=== PATIENT | male | born 1975 | race Caucasian/White ===

== ENCOUNTER 2024-06-11 03:26 | Inpatient (IN) | payer MEDICARE, OTHER, SELFPAY ==
[2024-06-11] VITALS (7 sets, daily range): BP systolic 107–138; BP diastolic 62–81; BMI 23.7; BMI 22.9
--- NOTE | 2024-06-11 00:23 | ED.GENMED ---
History of Present Illness
<CARLTON Franks - Last Filed: 06/11/24 02:14>
General
Chief Complaint: Change in Mental Status
Source: patient
Time Seen by Provider: 06/11/24 00:23
Nursing documentation reviewed up to this point in time: agreed with
History of Present Illness
History of Present Illness:
Patient is a 48-year-old male with history of seizures, substance abuse presents to the ED for evaluation. Pt awake alert confused speech. Able to state his name , not making conversational sense. He is not able to tell me why he is here.
Pt arrived via EMS who was called for seizure. Pt not able to give history.
Past History
<CARLTON Franks - Last Filed: 06/11/24 02:14>
Past History
ED Past Medical History: Seizures and Other (Seizure disorder with frequent breakthrough seizures, polysubstance drug use)
ED Past Surgical History: Other (Brain stimulator for seizure disorder)
Social History
Tobacco: Smoker
Drug: Marijuana and Narcotics
Personal: Single
Living: with family
Employment: Not employed
Family History
Family History: Other (Noncontributory)
Review of Systems
<CARLTON Franks - Last Filed: 06/11/24 02:14>
Review of Systems
Allergies reviewed?: Yes
Unable to obtain full review of systems at this time due to: other ( pt confused not able to give history )
Phy Exam
<CARLTON Franks - Last Filed: 06/11/24 02:14>
General Physical Exam
General Presentation: no apparent distress
General age: appears stated age
General Skin: warm and dry
General Habitus: normal
General Mental: confused
Cardiovascular Exam
Cardiovascular Exam: regular rate/rhythm and normal peripheral pulses
Pulmonary Exam
Pulmonary Exam: lungs clear and no respiratory distress
Neurological Exam
Neurological Exam: alert
Musculoskeletal Exam
Musculoskeletal Exam: full ROM
Skin Exam
Skin Exam: normal color and warm/dry
Psychiatric Exam
Psychiatric Exam: normal mood/affect
Course
<CARLTON Franks - Last Filed: 06/11/24 02:14>
Orders/Labs/Results
Orders:
Orders
06/11/24 00:34
Electrocardiogram (*1) Stat
Reason for Study: Other
Other Reason for Exam: neuro symptoms
CT Head W/o Iv Contrast Urgent
Comment:
Reason For Exam: change in ms
Cardiac Monitoring- Treatment ONCE
EKG- Treatment ONCE
06/11/24 00:49
0.9% Sodium Chloride 1000 ml [Nss] 1,000 ml IV BOLUS
06/11/24 01:05
Lorazepam [Ativan] 2 mg IV NOW STA
06/11/24 01:12
Alcohol Urgent
CPK [Creatine Phosphokinase] Urgent
Complete Blood Count/With Diff Urgent
Comprehensive Metabolic Panel Urgent
06/11/24 01:42
FOLic ACID [Folvite] 1 mg 0.9% Sodium Chloride 50 ml [Nss] 50 ml IV ONCE
Thiamine Injection 500 mg 0.9% Sodium Chloride 250 ml [Nss] 250 ml IV ONCE
06/11/24 01:49
Drug Screen, Urine [Urine Drug Abuse Screen] Urgent
Date Specimen was Collected: 06/11/24
Time Specimen was Collected: 01:48
Abnormal Lab Results
06/11/24
01:12
WBC 11.0 H 10^3/uL
(4.8-10.8)
Absolute Neuts (auto) 8.9 H 10^3/uL
(1.4-6.5)
Neutrophils % 81.0 H %
(42.2-75.2)
Lymphocytes % 14.5 L %
(20.5-51.1)
BUN 26 H mg/dl
(9-20)
Glucose 134 H mg/dl
(70-99)
06/11/24 01:12
06/11/24 01:12
Vital Signs
Initial and Last Documented VS:
Initial Vital Signs
Temp Pulse Resp Pulse Ox
97.6 F 98 22 97
06/10/24 23:56 06/10/24 23:56 06/10/24 23:56 06/10/24 23:56
Last Documented Vital Signs
Temp Pulse Resp BP Pulse Ox
97.6 F 80 11 122/81 97
06/10/24 23:56 06/11/24 01:15 06/11/24 01:15 06/11/24 01:14 06/11/24 01:15
Netezza Architect consulted with Physician
Netezza Architect consulted with physician?: Yes
Name of Physician Consulted: Maye
<Irving Villavicencio MD - Last Filed: 06/11/24 00:49>
Orders/Labs/Results
Orders:
Orders
06/11/24 00:34
Electrocardiogram (*1) Stat
Reason for Study: Other
Other Reason for Exam: neuro symptoms
CT Head W/o Iv Contrast Urgent
Comment:
Reason For Exam: change in ms
Cardiac Monitoring- Treatment ONCE
EKG- Treatment ONCE
06/11/24 00:49
0.9% Sodium Chloride 1000 ml [Nss] 1,000 ml IV BOLUS
06/11/24 01:05
Lorazepam [Ativan] 2 mg IV NOW STA
06/11/24 01:12
Alcohol Urgent
CPK [Creatine Phosphokinase] Urgent
Complete Blood Count/With Diff Urgent
Comprehensive Metabolic Panel Urgent
06/11/24 01:42
FOLic ACID [Folvite] 1 mg 0.9% Sodium Chloride 50 ml [Nss] 50 ml IV ONCE
Thiamine Injection 500 mg 0.9% Sodium Chloride 250 ml [Nss] 250 ml IV ONCE
06/11/24 01:49
Drug Screen, Urine [Urine Drug Abuse Screen] Urgent
Date Specimen was Collected: 06/11/24
Time Specimen was Collected: 01:48
Abnormal Lab Results
06/11/24
01:12
WBC 11.0 H 10^3/uL
(4.8-10.8)
Absolute Neuts (auto) 8.9 H 10^3/uL
(1.4-6.5)
Neutrophils % 81.0 H %
(42.2-75.2)
Lymphocytes % 14.5 L %
(20.5-51.1)
BUN 26 H mg/dl
(9-20)
Glucose 134 H mg/dl
(70-99)
06/11/24 01:12
06/11/24 01:12
Vital Signs
Initial and Last Documented VS:
Initial Vital Signs
Temp Pulse Resp Pulse Ox
97.6 F 98 22 97
06/10/24 23:56 06/10/24 23:56 06/10/24 23:56 06/10/24 23:56
Last Documented Vital Signs
Temp Pulse Resp BP Pulse Ox
97.6 F 80 11 122/81 97
06/10/24 23:56 06/11/24 01:15 06/11/24 01:15 06/11/24 01:14 06/11/24 01:15
Clintlt;CARLTON Franks - Last Filed: 06/11/24 02:14>
MDM/Problems Addressed
MDM/Problems Addressed:
Patient presented to the ER for evaluation patient arrives confused not able to give history very odd bizarre behavior. He attempts to answer some questions but is not able to tell us why he is here
Patient has been seen here previously with substance abuse history and seizure disorder. Patient is afebrile with stable vital signs nontachycardic no meningismus on exam white count minimally elevated 11.0 normal.
BUN minimally elevated 26 no other acute abnormal electrolytes; alcohol not detected.
CT neg.
Pt was evaluated by ED attending as pt acting very bizarre grinding teeth, antonino his extremities. no seizure activity. pt became very restless and was given ATivan . Pt was ordered folic acid/thiamine. will require admission for change in
MS. Wernicke encephalopathy is considered
I did attempt to call his father left a message but no answer.
Chronic conditions affecting care:
Substance abuse seizure disorder
<CARLTON Franks - Last Filed: 06/11/24 02:14>
*Critical Care Note
Total Time (30-74mins, 75-104mins- exclusive of procedures): Not Applicable
ED Attending Note
<CARLTON Franks - Last Filed: 06/11/24 02:14>
-
Portions of this chart may have been created with voice recognition software.� Occasional wrong word or��sound alike� substitutions may have occurred due to the inherent limitations of voice recognition software.
<Irving Villavicencio MD - Last Filed: 06/11/24 00:49>
ED Attending Note
Patient seen and examined by attending physician: Yes
ED Attending Note:
I have seen and evaluated the patient with a [id number]-shoe encounter. I have spoken to the advance practicer provider and involved in the medical history, the physical exam, medical decision making.
Evaluation and management service: agree unless noted differently below.
Results interpretation: agree unless noted differently below.
Focused HPI: 48-year-old male with a past medical history of seizures, polysubstance use presents to the ER for evaluation of odd behavior; there is a question of seizure as well. Patient is obviously confused; who presented via EMS and they said
that they received a call for 'seizure' and arrived and found patient confused. He is awake and alert and answering questions but rambling and providing bizarre responses. Initially he says that he is here for headache but then he says his head
does not hurt. He says that he has not had a seizure for a few weeks. He admits to marijuana use but he says he does not use any drugs and he denies ever using alcohol despite record showing regular alcohol use in the past.
Physical exam: Awake and alert. He is oriented to person and place and time but behaving somewhat oddly and answering questions bizarrely. Vitals within acceptable range. Pupils are equal round and reactive to light bilaterally, extraocular
movements intact, cranial nerves are intact. Speech is fluid there is no dysarthria or aphasia. Motor and sensory intact upper and lower extremities proximally distally. He has no signs of trauma to the head.
Medical Decision Makin-year-old male presents to the emergency room via EMS after possible seizure. He is confused/bizarre here. Vitals and exam as above. Possible seizure with postictal confusion versus drug/alcohol intoxication versus head
bleed/acute intracranial emergency. Will send labs including a CBC and CMP, alcohol level, UDS. Check CT head. Monitor very closely and reassess after the above.
Discharge Plan
Departure
Patient Disposition: Admit
Date of Disposition: 06/11/24
Time of Disposition: 02:11
Admit to: Med/Surg
Admit to doctor: Nayan
Presentation/result/management discussed w/ accepting MD/DO: Hospitalist
Patient with high blood pressure during this ER visit?: No
Condition: Fair
Covid-19: Not Applicable
Discharge Problem:
altered mental status
Prescriptions:
No Action
Briviact 50 MG tablet
50 mg PO BID@0800,1200
Patient Comments:
05/29/2022: last filled 05/18/22, 60 tabs for 30 days from [facility]
Briviact 100 mg tablet
100 mg PO BID@0800,2000
Patient Comments:
05/29/2022: last filled 05/18/22, 60 tabs for 30 days from [id number]
clonazepam 1 mg Tablet
1 mg PO BID
thiamine HCl (vitamin B1) [Vitamin B-1] 100 mg Tablet
100 mg PO DAILY
olanzapine 2.5 mg Tablet
1.25 mg PO BID
Patient Comments:
04/14/2023: Refused 0800 dose
gabapentin 800 mg Tablet
800 mg PO TID
folic acid 1 mg Tablet
1 mg PO DAILY
Interventions
Interventions:
*Risk Screen - Suicide Last Done: 06/11/24 00:54
*General Assessment Last Done: 06/11/24 00:54
*Neglect/Abuse Screening Last Done: 06/11/24 00:54
*ED COVID-19 Vaccine History Last Done: 06/11/24 00:54
ED- Cardiac Assessment Last Done: 06/11/24 01:21
ED- Neurological Assessment Last Done: 06/11/24 01:21
ED- Pulmonary Assessment Last Done: 06/11/24 01:21
Discharge Date and Time
Print Language: MONGOLIAN
[2024-06-11] MEDS: NSS 1000 IV (01:09)
[2024-06-11] MEDS: ATIVAN 2 MG IV (01:10)
[2024-06-11 01:23] LABS: % Basophils 0.4 % (0-2); % Eosinophils 0.1 % (0-6); % Immature Granulocytes 0.4 % (0-0.5); % Lymphocytes 14.5 % (20.5-51.1); % Monocytes 3.6 % (1.7-9.3); Absolute Lymphocytes 1.6 10^3/uL (1.2-3.4); Absolute Monocytes 0.4 10^3/uL (0.1-0.6); Absolute Neutrophils 8.9 10^3/uL (1.4-6.5); Hematocrit 47.8 % (39.0-52.0); Hemoglobin 16.5 g/dL (13.0-18.0); Mean Corp Hgb Conc. 34.5 g/dL (33.0-37.0); Mean Corpuscular Volume 89.7 fL (80.0-94.0); Mean Platelet Volume 8.9 fL (7.4-10.4); Nucleated Red Blood Cells % 0 % (-); Platelet Count 220 10^3/uL (130-400); Red Blood Cell Count 5.33 10^6/uL (4.70-6.10)
--- NOTE | 2024-06-11 01:27 | EDRN ---
Pt fully clothed when this RN entered room. Asked pt to change into gown and he was unable to so on his own. Pt unable to answer questions appropriately. This RN got pt into gown from waist up. While doing so, pt pulled gown down to flex his
chest muscles. He did this multiple times. While EDT attempting to get EKG, pt started holding his breath, antonino his muscles and got red in the face. Pt was also grinding his teeth. Dr Villavicencio and Zac[facility] PRE SALES ARCHITECT to bedside. This lasted
approximately 15 seconds. Pt then grabbed his penis. Pt would not follow commands. Asked numerous times if he has to go to the bathroom and once he finally said yes, attempted to provide urinal but pt would not let go of his penis. Eventually,
hand was removed and pt urinated in his pants before they could be unbuttoned. Pt moving around on stretcher, trying to sit up. Pants removed. Pt medicated with 2mg IV ativan which calmed pt. Pt oriented to self only - unable to provide HPI.
When asked if he uses illicit drugs pt said 'I wish I could.' Pt said he drinks alcohol but unable to quantify or say what he drinks.
[2024-06-11 01:38] LABS: ALT (SGPT) 20 U/L (0-50); AST (SGOT) 21 U/L (17-59); Albumin 4.8 g/dl (3.5-5.0); Alkaline Phosphatase 93 U/L (38-126); Blood Urea Nitrogen 26 mg/dl (9-20); Calcium 9.4 mg/dl (8.4-10.2); Carbon Dioxide 24 mmol/L (22-30); Chloride 103 mmol/L (98-107); Creatine Phosphokinase 89 U/L (55-170); Estimated Creatinine Clearance 122 ml/min; Glucose 134 mg/dl (70-99); Potassium 4.3 mmol/L (3.5-5.1); Sodium 139 mmol/L (135-145); Total Bilirubin 0.8 mg/dl (0.2-1.3); Total Protein 7.5 g/dl (6.3-8.2); eGFR > 60.00
[2024-06-11 01:40] LABS: Alcohol None Detected
--- NOTE | 2024-06-11 02:05 | EDRN ---
Called pharmacy for folvite and thiamine
[2024-06-11 02:12] LABS: Amphetamines Negative (Negative); Barbiturates Negative (Negative); Benzodiazepines Negative (Negative); Buprenorphine Negative (Negative); Cocaine Negative (Negative); Marijuana Positive (Negative); Methadone Negative (Negative); Methamphetamines Negative (Negative); Opiates Negative (Negative); Phencyclidine Negative (Negative); Tricyclic Antidepressants Negative (Negative)
[2024-06-11] MEDS: FOLVITE 50.2 MG IV (02:29)
[2024-06-11] MEDS: THIAMINE INJECTION 255 MG IV (02:54)
--- NOTE | 2024-06-11 03:04 | EDRN ---
This RN noted pt had his legs in the air and was shaking them. Tried to get pt to lower his legs and he held his breath and turned red. Pt grinding his teeth intermittently which he does when he is not having these episodes. Pt had his cell
phone in his hand and dropped it on the floor. Pt crossed his legs and then had them raised off the stretcher. Once pt put his legs down, he tried multiple times to get off the end of the stretcher despite being told to not do so. This RN
attempted to provide pt with urinal multiple times and to get him to sit further back on stretcher. Pt unable to comply and had to be assisted further back on stretcher. Pt lying on stretcher squeezing his penis so hard his knuckles turned white.
This RN called for assistance. Multiple RNs assisted pt back onto stretcher and attempted to help him use the urinal but he would not release his penis to allow placement of urinal. Pt started spraying urine. When urinal finally able to be
placed, captured less than 5 ml. Linens wet - removed and new ones placed. Pt placed in diaper. Pt repeatedly trying to hold his penis.
--- NOTE | 2024-06-11 03:20 | HPS.HSE ---
Family Physician
-
Family Physician: NOT KNOW UNKNOWN - PT DOES
Chief Complaint
-
Altered Mental Status
History of Present Illness
Patient is a 48y M with PMH significant for seizure disorder and substance abuse who presents to ED via EMS. 911 was responding to a call for 'seizure' and found the patient to be awake but extremely confused / disoriented. He was brought o the
ED for further evaluation. No additional sources of history are available. In the ED, patient is awake and interactive. He follows commands during exam (deep breath, etc). He is unable to answer questions appropriately however. Patient is
essentially speaking nonsense. No slurred speech. Moving all extremities.
Appears disoriented, confused. No witnessed seizure activity during his time in the ED.
Medical History
Past Medical History
Past Medical History: Reports Other
Additional Past Medical History:
Seizure Disorder
Polysubstance Abuse
Past Surgical History: Reports Other
Additional Past Surgical History:
Unknown
Social History
Unable to obtain full social history at this time due to: Other (Confusion)
Family History
Family History: Unable to Obtain
Allergies / Home Medications
Allergies reflects when Allergies were last updated in [facility].
Home Medications with original date entered in [facility]
Allergy/Medication List:
Unable to obtain.
If medication reconciliation has not been performed, why?: Medication List N/A
Review of Systems
-
Unable to obtain full review of systems at this time due to: Other (Confusion)
A 12 point ROS was completed and negative except as noted: No
Physical Exam
Vital Signs
Vital Signs
Temp Pulse Resp BP Pulse Ox
97.6 F 74 18 116/78 96
06/10/24 23:56 06/11/24 02:01 06/11/24 02:01 06/11/24 02:01 06/11/24 02:01
Physical Exam
General: Other (48y M somewhat restless / agitated. Flushed appearance. Eyes track / focus and follows most commands. Unable to answer questions.)
HEENT: Other (Dry MM. Neck supple.)
Respiratory: Clear; No Wheezes, Rales or Rhonchi
Cardiac: S1/S2 and Regular Rhythm; No Murmur
GI: Soft, Non Tender, Non Distended and Normal Bowel Sounds
Musculoskeletal: No Clubbing, No Cyanosis and No Edema
Neuro: Awake and Other (No apparent weakness / asymmetry.); No Oriented
Psych: Agitated and Anxious
Laboratory Results
-
06/11/24 01:12
06/11/24 01:12
Laboratory Results
Total Bilirubin 0.8 mg/dl (0.2-1.3) 06/11/24 01:12
AST 21 U/L (17-59) 06/11/24 01:12
ALT 20 U/L (0-50) 06/11/24 01:12
Alkaline Phosphatase 93 U/L (38-126) 06/11/24 01:12
Impression/Plan
-
A/P: Patient is a 48y M with PMH significant for seizure disorder and polysubstance abuse who presents to ED via EMS for report of seizure and evident mental status change.
Altered Mental Status / Acute Delirium
- Admit for further evaluation and treatment.
- UDS is unremarkable (positive only for THC and he has a 'marijuana card' for his epilepsy).
- Alcohol is negative. Reported history of alcohol abuse - but patient has always denied and all prior EtOH levels here have been negative.
- Other labs are unremarkable without evident source for TME.
- CT head with chronic L sided encephalomalacia (? prior TBI) but no acute findings.
- Differential at this point includes post-ictal state / seizure versus psychosis / etc.
- Unable to confirm / verify current meds and most recent list here is quite old.
- Will given Keppra now in the ED and then continue BID.
- Ativan IV PRN any breakthrough seizures, etc.
- Neurology evaluation, EEG, MRI in the AM.
- Zyprexa PRN for agitation.
- Psychiatry evaluation for further recommendations.
- Formal med rec in the AM.
- Follow for any new / worsening / focal symptoms.
DVT Prophylaxis: SCDs
Code Status: Full
[2024-06-11] MEDS: KEPPRA 1000 MG IV ×2 (03:58→09:04)
[2024-06-11 05:57] LABS: Hematocrit 44.6 % (39.0-52.0); Hemoglobin 15.6 g/dL (13.0-18.0); Mean Corpuscular Hgb 31.3 pg (27.0-31.0); Mean Corpuscular Volume 89.4 fL (80.0-94.0); Mean Platelet Volume 9.1 fL (7.4-10.4); Platelet Count 194 10^3/uL (130-400); Red Blood Cell Count 4.99 10^6/uL (4.70-6.10); White Blood Cell Count 10.6 10^3/uL (4.8-10.8)
[2024-06-11 06:22] LABS: Blood Urea Nitrogen 22 mg/dl (9-20); Calcium 8.7 mg/dl (8.4-10.2); Carbon Dioxide 22 mmol/L (22-30); Chloride 104 mmol/L (98-107); Estimated Creatinine Clearance > 125 ml/min; Glucose 133 mg/dl (70-99); Potassium 3.9 mmol/L (3.5-5.1); Sodium 138 mmol/L (135-145); eGFR > 60.00
[2024-06-11 06:54] LABS: TSH Reflex To Free T4 0.69 uIU/ml (0.47-4.68)
--- NOTE | 2024-06-11 08:44 | CON.NEURO ---
Consultation
Order
Date of Consultation: 06/11/24
Requesting Provider: Joe Spicer DO
Reason for Consult: encephalopathy
Neurology Consultation Note.
HPI:This is a 48-year-old RH man who presented to [facility] on 06/10/2024 with encephalopathy. According to EMS report the patient had 3 seizures, witnessed by his mother prior to presentation.
MR. James states that he is under care of Huan Copeland MD and takes Topamax, Neurontin and clonazepam for seizure management. History is limited due to expressive and receptive aphasia.
ER VS: 122/81, 80, afebrile.
EKG: NSR, QTc Int : 401 ms
PDMP:Clonazepam 1 Mg�60 tablets filled in on 04/22/2024, 05/19/2024.
Labs: Glucose�134, normal sodium, calcium, CK, WBC�11.
CT head wo contrast-chronic hypodensity in the left occipital lobe, left hemiatrophy
Routine EEG(06/11/2024) frequent right frontal sharps and generalized right greater than left slowing.
PMH: epilepsy, polysubstance addiction.
PSH: VNS
SH: lives in recovery house; former smoker, h/o incarceration, used to work in construction, uses THC, has 18-year-old daughter
FH: Unknown
All: Depakote�hearing loss
ROS: Negative for headache, weakness
General: Well developed. In no acute distress.
Cardio: Regular rate and rhythm without murmur. Extremities are without cyanosis or edema.
Neuro:
Mental Status: Alert, oriented to name, age, not to time. Poor attention. Expressive= receptive aphasia. Follows simple requests intermittently. Nonfluent. No hemineglect.
Cranial Nerves: Pupils are equally round and reactive to light. Horizontal EOMs full. Blinks to threat bilaterally. No ptosis. No nystagmus. V1-V3 intact to light touch and pinprick bilaterally, symmetric. Face symmetric. Normal hearing AU.
The palate elevated well. SCMs and traps 5/5. Tongue midline. No dysarthria.
Motor: All limbs antigravity symmetrically purposefully
Reflexes: Limited exam due to cooperation
Sensory: Limited exam due to poor attention
Coordination: No tremors, clonic movements
Gait: deferred
Assessment and Plan:
I. Multifactorial encephalopathy
II. Left cerebral hemiatrophy
III. 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
-Telemetry monitoring
-Seizure precautions
-Continue IV thiamine
-please check magnesium, TFTs, urinalysis, urine tox
-CXR to confirm anesthetic
-Keppra load
-Please obtain medical records from Huan Copeland MD
I personally reviewed all radiology and labs along with past medical records pertinent to current medical problems. Total time spent in patient care is 60 minutes.
Thank you for allowing us to participate in the care of this patient. We will continue to follow. Please do not hesitate to contact us with any questions or concerns.
Subjective/Objective
Subjective Data
Date of Service: June 11, 2024
Objective Data
Vital Signs
Temp Pulse Resp BP Pulse Ox
36.4 C 77 26 117/70 96
06/10/24 23:56 06/11/24 05:00 06/11/24 05:00 06/11/24 05:00 06/11/24 02:01
Lab Results
06/11/24 05:43
06/11/24 05:43
Sodium 138 mmol/L (135-145) 06/11/24 05:43
Potassium 3.9 mmol/L (3.5-5.1) 06/11/24 05:43
BUN 22 mg/dl (9-20) H 06/11/24 05:43
Glucose 133 mg/dl (70-99) H 06/11/24 05:43
Calcium 8.7 mg/dl (8.4-10.2) 06/11/24 05:43
Ur Buprenorphine Negative (Negative) 06/11/24 01:49
Patient Allergies
divalproex sodium [From Depakote] Adverse Reaction (Verified 06/10/24 23:59)
pt states he loses his hair
Medications
-
Active Medications
Generic Name Dose Route Start Last Admin
Trade Name Freq PRN Reason Stop Dose Admin
Acetaminophen 650 mg 06/11/24 04:29
Acetaminophen 325 Mg Tablet PO 07/09/24 04:28
Q4HPRN PRN
Mild Pain / Temp > 101
Folic Acid 1 mg 06/11/24 08:00
Folic Acid 1 Mg Tablet PO 07/09/24 07:59
DAILY MIKE
Levetiracetam 1,000 mg 06/11/24 08:00
Levetiracetam (100 Mg/Ml) 500 Mg/5 Ml Vial IV 07/09/24 07:59
Q12 MIKE
Lorazepam 1 mg 06/11/24 04:29
Lorazepam 2 Mg/Ml Vial IV 07/09/24 04:28
Q2HPRN PRN
Seizure activity / Agitation
Olanzapine 1.25 mg 06/11/24 04:29
Olanzapine 2.5 Mg Tablet PO 07/09/24 04:28
Q6HPRN PRN
Agitation / Anxiety
Sodium Chloride 0 flush 06/11/24 07:00
Sodium Chloride 0.9% (Flush) Syringe IV 07/09/24 06:59
PER PROTOCOL MIKE
Sodium Chloride 0.5 ml 06/11/24 06:22
Nss (Pf) 10 Ml Vial For Ativan 1 Mg Dose IV 07/09/24 06:21
Q2HPRN PRN
IV LORAZEPAM DILUTION
Home Medications
�Medication �Instructions �Recorded
brivaracetam 100 mg tablet 100 mg PO BID@0800,2000 05/29/22
(Briviact)
clonazepam 1 mg tablet 1 mg PO BID 04/14/23
folic acid 1 mg tablet 1 mg PO DAILY 04/14/23
gabapentin 400 mg capsule 400 mg PO BID 06/11/24
topiramate 50 mg tablet 50 mg PO BID 06/11/24
Vital Signs and Labs
-
Vital Signs and Labs:
Vital Signs
Temp Pulse Resp BP Pulse Ox
36.4 C 77 26 117/70 96
06/10/24 23:56 06/11/24 05:00 06/11/24 05:00 06/11/24 05:00 06/11/24 02:01
Lab Results
06/11/24 05:43
06/11/24 05:43
Sodium 138 mmol/L (135-145) 06/11/24 05:43
Potassium 3.9 mmol/L (3.5-5.1) 06/11/24 05:43
BUN 22 mg/dl (9-20) H 06/11/24 05:43
Glucose 133 mg/dl (70-99) H 06/11/24 05:43
Calcium 8.7 mg/dl (8.4-10.2) 06/11/24 05:43
Ur Buprenorphine Negative (Negative) 06/11/24 01:49
Medications
-
Medications:
Generic Name Dose Route Start Last Admin
Trade Name Freq PRN Reason Stop Dose Admin
Acetaminophen 650 mg 06/11/24 04:29
Acetaminophen 325 Mg Tablet PO 07/09/24 04:28
Q4HPRN PRN
Mild Pain / Temp > 101
Folic Acid 1 mg 06/11/24 08:00
Folic Acid 1 Mg Tablet PO 07/09/24 07:59
DAILY MIKE
Levetiracetam 1,000 mg 06/11/24 08:00
Levetiracetam (100 Mg/Ml) 500 Mg/5 Ml Vial IV 07/09/24 07:59
Q12 MIKE
Lorazepam 1 mg 06/11/24 04:29
Lorazepam 2 Mg/Ml Vial IV 07/09/24 04:28
Q2HPRN PRN
Seizure activity / Agitation
Olanzapine 1.25 mg 06/11/24 04:29
Olanzapine 2.5 Mg Tablet PO 07/09/24 04:28
Q6HPRN PRN
Agitation / Anxiety
Sodium Chloride 0 flush 06/11/24 07:00
Sodium Chloride 0.9% (Flush) Syringe IV 07/09/24 06:59
PER PROTOCOL MIKE
Sodium Chloride 0.5 ml 06/11/24 06:22
Nss (Pf) 10 Ml Vial For Ativan 1 Mg Dose IV 07/09/24 06:21
Q2HPRN PRN
IV LORAZEPAM DILUTION
Home Medications
-
Home Medications
brivaracetam 100 mg tablet (Briviact) 100 mg PO BID@0800,2000 05/29/22
clonazepam 1 mg tablet 1 mg PO BID 04/14/23
folic acid 1 mg tablet 1 mg PO DAILY 04/14/23
gabapentin 400 mg capsule 400 mg PO BID 06/11/24
topiramate 50 mg tablet 50 mg PO BID 06/11/24
[2024-06-11] MEDS: FOLVITE 1 MG PO (09:04)
--- NOTE | 2024-06-11 10:11 | EEGC.RPT ---
Continuous EEG Report
Report
TECHNICAL REMARKS:��This is a technically satisfactory eighteen channel record employing 21 disc electrodes applied according to a measured international 10-20 electrode placement system.��There were no significant technical difficulties.��The study
was done on a [employer] System.
MEDICATIONS:�Brivaracetam, clonazepam, gabapentin, topiramate
CLINICAL INFORMATION:��This is a 48 year old man with seizure cluster and encephalopathy. This study was requested to look for epileptiform abnormalities.
STUDY DURATION: 26 minutes.
REPORT: �At the onset of the EEG, the patient is awake. The background activity on the left consists of 5�6 hz, impersistent, posteriorly dominant, moderate in amplitude, asymmetric, and rhythmic activity. Continuous right hemispheric 2-4 Hz
slowing with frequent right frontal sharp waves is seen. Excessive beta activity was present as well as multiple movement and muscle artifacts. Drowsiness is characterized by low amplitude mixed frequency activity, decreased eye blinking, and
muscle artifact.
IMPRESSION: �This is an abnormal awake and drowsy EEG due to continuos right greater than left generalized slowing and frequent right frontal sharp waves indicative of propensity to develop seizures from this area. No electrographic seizures were
seen.
[2024-06-11 10:45] LABS: Magnesium 1.7 mg/dl (1.6-2.3)
[2024-06-11] MEDS: TOPAMAX 50 MG PO ×2 (12:02→22:49)
[2024-06-11] MEDS: BRIVIACT 100 MG PO ×2 (12:03→21:41)
--- NOTE | 2024-06-11 12:20 | CS.PSYCHR ---
Consult Summary - Psychiatry
-
Pt is a 48 yo male with history of seizure disorder and substance abuse who presented to ED via EMS, who responded to a reported 'seizure' and found the patient to be awake but confused/disoriented. No collateral history available. Pt noted to
be awake and interactive, following basic commands, but very tangential/disorganized. On exam, pt seen resting on stretcher in no distress. Pt awake, alert, making eye contact. Pt gives rambling, disjointed answers, completely off topic. Pt able
to state he is on seizure medication, denies using any illicit substance. He denies any psychiatric symptoms, shows not signs of mood disturbance or psychosis. UDS positive only for THC, negative for Rx benzo.
Psych Hx: denied
PDMP: Klonopin prescriptions from a series of different providers- Bari Sullivan in August and September 2023, [facility] in [place] October and November, PCP Dr Bautista November - Jan, then PCP [facility] Feb- Apr, last filled 05/19/24 1 mg BID #60
SH: pt mentions having a dtr and significant other, unable to obtain clear history
MSE: alert, oriented to name and place, calm, fairly cooperative. Poor historian, speech/thought rambling and loose/tangential. No apparent delusions or hallucinations. No agitation. No signs of mood disturbance. Pt denies any symptoms.
Insight limited
Imp: Altered mental status, R/o delirium, R/o substance intoxication (only THC showing on UDS)
Unspecified substance use d/o by history; R/o Rx benzo abuse
Rec: Neurology consult. Monitor for potential benzo withdrawal. Pt should be tapered off- likely not taking Klonopin as prescribed with negative UDS. Need further history
Will follow
--- NOTE | 2024-06-11 13:20 | CM ---
Chart reviewed. Patient is here for AMS/seizuresx3. Patient states he lives in a ML home with his mom. He and his mom live on the 1st floor. The next floor is rented out. He does not drive. He is independent. He works PT in [employer]. He denies any
+SDOHs. He has active PCP and pharmacy. No DME.
ANTICIPATED DISCHARGE DISPOSITION: Home with mom, once medically cleared.
--- NOTE | 2024-06-11 13:49 | W.PN.UPDATE ---
Update Note
Progress Note Update
Seen and examined independent of overnight physician. Nonbillable note
Patient states he knows he is at outside hospital. States he was told he had multiple seizures at home. Upon further questioning of events leading to hospitalization patient with tangential thought process. Patient thought process jumps around
from 1 topic to another topic and he never comes back to original question. Patient is calm throughout conversation. Patient thinks he is answering the question however patient completely forgets what the original question was and keeps talking
about random stuff. Otherwise patient resting in bed comfortably. Moving all 4 extremities.
General: Talkative, moving all 4 extremities.
HEENT: Other (Dry MM. Neck supple.)
Respiratory: Clear; No Wheezes, Rales or Rhonchi
Cardiac: S1/S2 and Regular Rhythm; No Murmur
GI: Soft, Non Tender, Non Distended and Normal Bowel Sounds
Musculoskeletal: No Clubbing, No Cyanosis and No Edema
Neuro: Awake and Other (No apparent weakness / asymmetry.); No Oriented
Psych: calm but tangential thought process.
A/P: Patient is a 48y M with PMH significant for seizure disorder and polysubstance abuse who presents to ED via EMS for report of seizure and evident mental status change.
Toxic metabolic encephalopathy likely secondary to postictal due to seizures versus psych etiology
Epilepsy
- UDS is unremarkable (positive only for THC and he has a 'marijuana card' for his epilepsy). Patient with prescription for Klonopin/PDMP checked. However UDS was negative.
- Alcohol is negative. Reported history of alcohol abuse - but patient has always denied and all prior EtOH levels here have been negative.
- Other labs are unremarkable without evident source for TME.
- CT head with chronic L sided encephalomalacia (? prior TBI) but no acute findings.
- Differential at this point includes post-ictal state / seizure versus psychosis / etc.
- Ativan IV PRN any breakthrough seizures, etc.
- Neurology evaluation, EEG, MRI brain pending.
- Zyprexa PRN for agitation.
- Psychiatry evaluation for further recommendations.
- Continue with home antiepileptic regimen of Briviact, Klonopin, gabapentin and Topamax. Also started on fosphenytoin
- Follow for any new / worsening / focal symptoms.
- Outpatient neurology records requested
DVT Prophylaxis: SCDs
Code Status: Full
[2024-06-11] MEDS: CEREBYX 130 MG IV (14:19)
[2024-06-11 15:45] LABS: Amphetamines Negative (Negative); Barbiturates Negative (Negative); Benzodiazepines Positive (Negative); Buprenorphine Negative (Negative); Cocaine Negative (Negative); Marijuana Positive (Negative); Methadone Negative (Negative); Methamphetamines Negative (Negative); Opiates Negative (Negative); Phencyclidine Negative (Negative); Tricyclic Antidepressants Negative (Negative)
[2024-06-11 16:04] LABS: Fentanyl, Urine Negative (Negative)
[2024-06-11 16:05] LABS: Urine Albumin Negative (Neg - Trace); Urine Bilirubin Negative (Negative); Urine Character Slightly Cloudy (Clear); Urine Color Yellow; Urine Glucose Negative (Negative); Urine Ketone 2+ (Negative); Urine Leukocyte 1+ (Negative); Urine Nitrite Positive (Negative); Urine Occult Blood 1+ (Negative); Urine Specific Gravity 1.015 (<1.030); Urine Urobilinogen 2+ (Neg - 1+)
[2024-06-11 16:55] LABS: Urine Squamous Cell >30 /LPF (Few)
[2024-06-11 17:00] LABS: Urine Bacteria Few (Negative)
[2024-06-11] MEDS: ZYPREXA 1.25 MG PO (17:39)
[2024-06-11 20:08] LABS: Hepatitis C Antibody Negative (Negative)
--- NOTE | 2024-06-11 21:00 | TRANSFER ---
Patient arrived to unit accompanied by ED PCT x2, patient ambulated to bed without difficulty. Nursing assessment completed and as documented at this time. Medsitter initiated at this time d/t confusion, impulsiveness, high fall risk, and ensure
medical equipment stays on. Oriented to room, facility, use of call kimbrough and within reach. VSS. Care ongoing.
[2024-06-11] MEDS: KLONOPIN 1 MG PO (21:41)
[2024-06-11] MEDS: NEURONTIN 400 MG PO (21:41)
[2024-06-11] MEDS: LOVENOX SC (21:58)
--- NOTE | 2024-06-11 22:00 | PTCARENOTE ---
Upon medication administration, patient took pills PO, intermittently grinding teeth, and threw both hands in the hair with eyes closed while shaking head back and fourth. Patient was able to spit out pills on command, episode lasted about 20
seconds without any obvious signs of post ictal state. Patient immediately returned to previous mentation. Medications given PO without difficulty. STRAP BUCKLER MACHINE rounding and made aware of situation. No orders, VSS, medsitter in place, care ongoing.
[2024-06-11] MEDS: CEREBYX 52 MG IV (22:49)
--- NOTE | 2024-06-11 23:30 | PTCARENOTE ---
PCT found patient with vomit and urine on floor. Non-bloody, non-coffee ground emesis with food contents. Patient c/o reflux prior to emesis and admits to feeling better post emesis, denies abd pain, VSS. Care ongoing.
[2024-06-12 03:50] VITALS: BP 129/72
[2024-06-12] MEDS: CEREBYX 52 MG IV ×3 (05:16→22:52)
[2024-06-12 06:01] VITALS: BMI 22.8
[2024-06-12 06:34] LABS: % Basophils 0.2 % (0-2); % Eosinophils 0.1 % (0-6); % Immature Granulocytes 0.5 % (0-0.5); % Lymphocytes 13.1 % (20.5-51.1); % Monocytes 9.5 % (1.7-9.3); % Neutrophils 76.6 % (42.2-75.2); Absolute Immature Granulocytes 0.1 10^3/uL (0-0.05); Absolute Lymphocytes 2.3 10^3/uL (1.2-3.4); Absolute Monocytes 1.7 10^3/uL (0.1-0.6); Absolute Neutrophils 13.4 10^3/uL (1.4-6.5); Hematocrit 49.5 % (39.0-52.0); Mean Corp Hgb Conc. 34.3 g/dL (33.0-37.0); Mean Corpuscular Hgb 30.9 pg (27.0-31.0); Mean Platelet Volume 9.3 fL (7.4-10.4); Nucleated Red Blood Cells % 0 % (-); Platelet Count 234 10^3/uL (130-400); Red Cell Dist. Width 12.1 % (11.5-14.5); White Blood Cell Count 17.5 10^3/uL (4.8-10.8)
[2024-06-12 07:03] LABS: ALT (SGPT) 17 U/L (0-50); AST (SGOT) 20 U/L (17-59); Albumin 4.5 g/dl (3.5-5.0); Alkaline Phosphatase 91 U/L (38-126); Blood Urea Nitrogen 15 mg/dl (9-20); Calcium 9.2 mg/dl (8.4-10.2); Carbon Dioxide 20 mmol/L (22-30); Chloride 105 mmol/L (98-107); Estimated Creatinine Clearance > 125 ml/min; Glucose 132 mg/dl (70-99); Magnesium 1.7 mg/dl (1.6-2.3); Phosphorus 3.1 mg/dl (2.5-4.5); Sodium 139 mmol/L (135-145); Total Bilirubin 1.6 mg/dl (0.2-1.3); Total Protein 7.2 g/dl (6.3-8.2); eGFR > 60.00
[2024-06-12 07:47] VITALS: BP 121/79
[2024-06-12] MEDS: KLONOPIN 1 MG PO ×2 (09:07→20:06)
[2024-06-12] MEDS: BRIVIACT 100 MG PO ×2 (09:07→20:06)
[2024-06-12] MEDS: NEURONTIN 400 MG PO ×2 (09:07→14:03)
[2024-06-12] MEDS: FOLVITE 1 MG PO (09:08)
[2024-06-12] MEDS: THIAMINE INJECTION 200 MG IV (09:08)
[2024-06-12] MEDS: TOPAMAX 50 MG PO ×2 (09:09→14:03)
--- NOTE | 2024-06-12 11:03 | W.PN.NEURO.1 ---
Today's Communication / Plan
-
.
Subjective/Objective
Subjective Data
Date of Service: June 12, 2024
Neurology follow-up note
HPI: Mr. James reports no complaints. He admits to skipping his antiepileptic medications for unspecified duration.
I was unsuccessful in reaching patient's mother Ene at provide that number [phone] since it has been disconnected.
Labs: Urine tox�negative for benzos, positive for THC,
Labs, normal TSH, CK, WBCs�17.5.
UA�positive for WBCs, bacteria, nitrates, leukocyte esterase.
PDMP:Clonazepam 1 Mg�60 tablets filled in on 04/22/2024, 05/19/2024.
CT head wo contrast-chronic hypodensity in the left occipital lobe, left hemiatrophy
Routine EEG(06/11/2024) frequent right frontal sharps and generalized right greater than left slowing.
mother Ene [phone].
PMH: epilepsy, polysubstance addiction.
PSH: VNS
SH: lives in recovery house; former smoker, h/o incarceration, used to work in construction, uses THC, has 18-year-old daughter:
FH: Unknown
All: Depakote�hearing loss
ROS: Negative for headache, weakness, sensory deficits, chest pain, shortness of breath.
General: Well developed. In no acute distress.
Cardio: Regular rate and rhythm without murmur. Extremities are without cyanosis or edema.
Neuro:
Mental Status: Alert, oriented to name, year, months. Did not know the date. Poor attention. Impaired comprehension. Perseverates. Follows simple requests.
Cranial Nerves: Pupils are equally round and reactive to light. Horizontal EOMs full. Blinks to threat bilaterally. No ptosis. No nystagmus. V1-V3 intact to light touch and pinprick bilaterally, symmetric. Face symmetric. Normal hearing AU.
The palate elevated well. SCMs and traps 5/5. Tongue midline. No dysarthria.
Motor: All limbs antigravity symmetrically purposefully
Reflexes: Limited exam due to cooperation
Sensory: Limited exam due to poor attention
Coordination: No tremors, no dysmetria.
Gait: deferred
Assessment and Plan:
I. Multifactorial encephalopathy, mildly improved.
II. Left cerebral hemiatrophy
III. 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
-Telemetry monitoring
-Seizure precautions
-Continue Clonazepam 1 mg twice daily, Briviact 100 mg twice daily, gabapentin 400 mg twice daily and Topamax 50 mg twice daily
-Please obtain medical records from Huan Copeland MD
I personally reviewed all radiology and labs along with past medical records pertinent to current medical problems. Total time spent in patient care is 40 minutes.
Thank you for allowing us to participate in the care of this patient. We will continue to follow. Please do not hesitate to contact us with any questions or concerns.
Objective Data
Vital Signs
Temp Pulse Resp BP Pulse Ox
36.7 C 77 17 121/79 96
06/12/24 07:47 06/12/24 07:47 06/12/24 07:47 06/12/24 07:47 06/12/24 08:30
Lab Results
06/12/24 05:49
06/12/24 05:49
Sodium 139 mmol/L (135-145) 06/12/24 05:49
Potassium 4.0 mmol/L (3.5-5.1) 06/12/24 05:49
BUN 15 mg/dl (9-20) 06/12/24 05:49
Glucose 132 mg/dl (70-99) H 06/12/24 05:49
Calcium 9.2 mg/dl (8.4-10.2) 06/12/24 05:49
Phosphorus 3.1 mg/dl (2.5-4.5) 06/12/24 05:49
Ur Buprenorphine Negative (Negative) 06/11/24 14:27
Patient Allergies
divalproex sodium [From Depakote] Allergy (Verified 06/11/24 23:35)
pt states he loses his hair
Vital Signs and Labs
-
Vital Signs and Labs:
Vital Signs
Temp Pulse Resp BP Pulse Ox
36.7 C 77 17 121/79 96
06/12/24 07:47 06/12/24 07:47 06/12/24 07:47 06/12/24 07:47 06/12/24 08:30
Lab Results
06/12/24 05:49
06/12/24 05:49
Sodium 139 mmol/L (135-145) 06/12/24 05:49
Potassium 4.0 mmol/L (3.5-5.1) 06/12/24 05:49
BUN 15 mg/dl (9-20) 06/12/24 05:49
Glucose 132 mg/dl (70-99) H 06/12/24 05:49
Calcium 9.2 mg/dl (8.4-10.2) 06/12/24 05:49
Phosphorus 3.1 mg/dl (2.5-4.5) 06/12/24 05:49
Ur Buprenorphine Negative (Negative) 06/11/24 14:27
Medications
-
Medications:
Generic Name Dose Route Start Last Admin
Trade Name Freq PRN Reason Stop Dose Admin
Acetaminophen 650 mg 06/11/24 04:29
Acetaminophen 325 Mg Tablet PO 07/09/24 04:28
Q4HPRN PRN
Mild Pain / Temp > 101
Brivaracetam 100 mg 06/11/24 11:15 06/12/24 09:07
Brivaracetam 50 Mg Tablet PO 07/09/24 11:14 100 mg
BID@0800,2000 MIKE Administration
Clonazepam 1 mg 06/11/24 20:00 06/12/24 09:07
Clonazepam 1 Mg Tablet PO 07/09/24 19:59 1 mg
BID MIKE Administration
Enoxaparin Sodium 40 mg 06/11/24 18:00 06/11/24 21:58
Enoxaparin Sodium 40 Mg/0.4 Ml Syringe SC 07/09/24 17:59 Not Given
QPM MIKE
Folic Acid 1 mg 06/11/24 08:00 06/12/24 09:08
Folic Acid 1 Mg Tablet PO 07/09/24 07:59 1 mg
DAILY MIKE Administration
Gabapentin 400 mg 06/11/24 20:00 06/12/24 09:07
Gabapentin 400 Mg Capsule PO 07/09/24 19:59 400 mg
BID MIKE Administration
Fosphenytoin Sodium 100 mg/ 52 mls @ 208 mls/hr 06/11/24 22:00 06/12/24 05:16
Sodium Chloride IV 07/09/24 21:59 52 mls
Q8H MIKE Administration
Lorazepam 1 mg 06/11/24 04:29
Lorazepam 2 Mg/Ml Vial IV 07/09/24 04:28
Q2HPRN PRN
Seizure activity / Agitation
Olanzapine 1.25 mg 06/11/24 04:29 06/11/24 17:39
Olanzapine 2.5 Mg Tablet PO 07/09/24 04:28 1.25 mg
Q6HPRN PRN Administration
Agitation / Anxiety
Sodium Chloride 0 flush 06/11/24 07:00
Sodium Chloride 0.9% (Flush) Syringe IV 07/09/24 06:59
PER PROTOCOL MIKE
Sodium Chloride 0.5 ml 06/11/24 06:22
Nss (Pf) 10 Ml Vial For Ativan 1 Mg Dose IV 07/09/24 06:21
Q2HPRN PRN
IV LORAZEPAM DILUTION
Thiamine HCl 200 mg 06/12/24 08:00 06/12/24 09:08
Thiamine (100 Mg/Ml) 2 Ml Vial IV 07/10/24 07:59 200 mg
DAILY MIKE Administration
Topiramate 50 mg 06/11/24 12:00 06/12/24 09:09
Topiramate 25 Mg Tablet PO 07/09/24 11:59 50 mg
BID MIKE Administration
--- NOTE | 2024-06-12 11:16 | W.PN.UPDATE ---
Update Note
Progress Note Update
Pt seen, reviewed with nursing staff. Pt alert, oriented, resting calmly in bed. Sensorium appears clear; pt c/o feeling 'off level.' He reports hx of epilepsy related to head injury at . Pt noted with possible partial seizure activity
overnight. Nursing staff and pharmacy are trying to confirm recent seizure med changes reported by pt and his mother. Pt denies any mental health issues, shows no signs of psychiatric disturbance, is not on any psychotropic meds.
Imp: Mental status improving; pt reports ongoing recurrent seizures- chronic
Unspecified substance use d/o by history; R/o Rx benzo abuse
Rec: No psychiatric intervention indicated. Appears psychiatrically stable to return to outpatient Neurology follow-up when medically cleared
Psychiatry will sign off.
[2024-06-12 11:17] VITALS: BP 124/81
--- NOTE | 2024-06-12 12:07 | W.PN.HOSP.TC ---
Addendum entered and electronically signed by Francois Mcghee MD 06/12/24 15:39:
called mother to update. no response. left vm.
Original Note:
Today's Communication/Plan
-
await AEDs dose confirmation
MRI brain pending
Neurology recs
Assessment / Plan
Assessment / Plan
A/P: Patient is a 48y M with PMH significant for seizure disorder and polysubstance abuse who presents to ED via EMS for report of seizure and evident mental status change.
Toxic metabolic encephalopathy likely secondary to postictal due to seizures versus THC usage related vs. doubt any infection
Epilepsy status post vagus nerve stimulator implantation at [facility]
- UDS is unremarkable (positive only for THC and he has a 'marijuana card' for his epilepsy). Patient with prescription for Klonopin/PDMP checked. However UDS was negative.
- Alcohol is negative. Reported history of alcohol abuse - but patient has always denied and all prior EtOH levels here have been negative.
- Other labs are unremarkable without evident source for TME.
- CT head with chronic L sided encephalomalacia (? prior TBI) but no acute findings.
- Differential at this point includes post-ictal state / seizure versus
- Ativan IV PRN any breakthrough seizures, etc.
- Neurology evaluation, EEG, MRI brain pending.
- Zyprexa PRN for agitation.
- Psychiatry evaluation for further recommendations. And no further psych medication or psych disorder suspected.
- Continue with home antiepileptic regimen of Briviact, Klonopin, gabapentin and Topamax. Also started on fosphenytoin. Pharmacy confirming patient Topamax and gabapentin dose.
- Follow for any new / worsening / focal symptoms.
- Outpatient neurology records requested
- Mentation seems to be slowly improving. Less pressured speech today. Monitor for diet tolerance. Monitor vital signs.
DVT Prophylaxis: SCDs
Code Status: Full
Discussed with psychiatric
Anticipated Discharge: Within 24 hours
Subjective/Interval History
-
Date of Service: June 12, 2024
Continues to talk with pressured speech
Overnight events noted
Possible seizures
Patient states he was cutting his Topamax in half as he was not feeling better. However states at home he supposed to take 100 mg of Topamax twice daily and gabapentin 800 mg twice daily.
Objective Data
-
Labs:
Laboratory Results
06/12/24
05:49
WBC 17.5 H
Hgb 17.0
Hct 49.5
Plt Count 234 D
Sodium 139
Potassium 4.0
Chloride 105
Carbon Dioxide 20 L
BUN 15
Creatinine 0.6 L
Glucose 132 H
Calcium 9.2
Total Bilirubin 1.6 H
AST 20
ALT 17
Alkaline Phosphatase 91
Vital Signs:
Vital Signs
Temp Pulse Resp BP Pulse Ox
98.1 F 75 17 124/81 97
06/12/24 11:17 06/12/24 11:17 06/12/24 11:17 06/12/24 11:17 06/12/24 11:17
I&O
06/11/24 06/12/24 06/13/24
06:59 06:59 06:59
Intake Total 240 / 240
Output Total 650 / 650 450 / 450
Balance -650 / -650 -210 / -210
Physical Exam
-
General: Well Developed and No Apparent Distress
HEENT: Normocephalic, Atraumatic and Moist Mucous Membranes
Respiratory: Clear to Auscultation
Cardiac: Regular Rhythm, S1/S2 and Other (Vagus nerve stimulator palpated nontender.); Negative Murmur, Rub or Gallop
GI: Soft, Nontender, Nondistended and Normal Bowel Sounds; Negative Organomegaly
Rectal: Deferred by Provider
Musculoskeletal: No Clubbing, No Cyanosis and No Edema
Skin: Negative Rash
Neuro: Awake, Alert, Oriented, AO x 3 and Nonfocal/Grossly Intact
Psych: Anxious
Data Reviewed
-
Total Time Spent with Patient (in minutes): 55
[2024-06-12 15:02] VITALS: BP 114/61
--- NOTE | 2024-06-12 17:07 | W.PN.UPDATE ---
Update Note
Progress Note Update
Discussed with patient and mother over the phone in details. Per patient mother patient had multiple episode of seizures at home and was recently seen by his outpatient neurologist at [facility]. Outpatient neurologist increased patient Topamax and
gabapentin. Mother did state that patient have a tendency to cut down his antiepileptic medication dosing and sometimes even not take the medication. It seems patient had multiple episode of seizures secondary to noncompliance leading to
confusion. Mentation seems to be improving. Will need to decide on IV antiepileptics moving forward and if additional medication will needed to be added. Will await further neurology recs. Unable to perform MRI as patient vagal nerve stimulator
which per MRI dept, 'needs to be interrogated and turned off by the neurologist. Patient does not have a remote, and thus unable to perform MRI Brain. '
[2024-06-12] MEDS: LOVENOX 40 MG SC (18:05)
[2024-06-12 19:35] VITALS: BP 136/77
[2024-06-12] MEDS: TOPAMAX 100 MG PO (20:06)
[2024-06-12] MEDS: NEURONTIN 800 MG PO (20:06)
[2024-06-12 23:35] VITALS: BP 108/61
[2024-06-13 03:31] VITALS: BP 104/70
[2024-06-13] MEDS: CEREBYX 52 MG IV (05:36)
[2024-06-13 05:54] VITALS: BMI 22.0
[2024-06-13 06:00] VITALS: BMI 21.9
[2024-06-13 06:41] LABS: % Basophils 0.4 % (0-2); % Eosinophils 0.2 % (0-6); % Immature Granulocytes 0.6 % (0-0.5); % Lymphocytes 12.9 % (20.5-51.1); % Monocytes 9.3 % (1.7-9.3); % Neutrophils 76.6 % (42.2-75.2); Absolute Basophils 0.1 10^3/uL (0-0.2); Absolute Immature Granulocytes 0.1 10^3/uL (0-0.05); Absolute Lymphocytes 2.2 10^3/uL (1.2-3.4); Absolute Monocytes 1.6 10^3/uL (0.1-0.6); Hemoglobin 17.2 g/dL (13.0-18.0); Mean Corp Hgb Conc. 35.1 g/dL (33.0-37.0); Mean Corpuscular Hgb 30.9 pg (27.0-31.0); Mean Platelet Volume 8.8 fL (7.4-10.4); Nucleated Red Blood Cells % 0 % (-); Platelet Count 197 10^3/uL (130-400); Red Blood Cell Count 5.57 10^6/uL (4.70-6.10); Red Cell Dist. Width 12.2 % (11.5-14.5)
[2024-06-13 07:10] VITALS: BP 113/62
[2024-06-13 07:12] LABS: ALT (SGPT) 15 U/L (0-50); AST (SGOT) 16 U/L (17-59); Albumin 4.1 g/dl (3.5-5.0); Alkaline Phosphatase 87 U/L (38-126); Blood Urea Nitrogen 18 mg/dl (9-20); Calcium 8.9 mg/dl (8.4-10.2); Carbon Dioxide 19 mmol/L (22-30); Chloride 104 mmol/L (98-107); Estimated Creatinine Clearance > 125 ml/min; Glucose 121 mg/dl (70-99); Potassium 3.7 mmol/L (3.5-5.1); Sodium 133 mmol/L (135-145); Total Bilirubin 1.5 mg/dl (0.2-1.3); Total Protein 6.8 g/dl (6.3-8.2); eGFR > 60.00
[2024-06-13] MEDS: KLONOPIN 1 MG PO (07:39)
[2024-06-13] MEDS: NEURONTIN 800 MG PO (07:39)
[2024-06-13] MEDS: FOLVITE 1 MG PO (07:39)
[2024-06-13] MEDS: TOPAMAX 100 MG PO (07:39)
[2024-06-13] MEDS: BRIVIACT 100 MG PO (07:39)
[2024-06-13] MEDS: THIAMINE INJECTION 200 MG IV (07:40)
--- NOTE | 2024-06-13 10:04 | W.PN.HOSP.TC ---
Today's Communication/Plan
-
cont home AEDs
Assessment / Plan
Assessment / Plan
A/P: Patient is a 48y M with PMH significant for seizure disorder and polysubstance abuse who presents to ED via EMS for report of seizure and evident mental status change.
Toxic metabolic encephalopathy likely secondary to postictal due to seizures secondary to medication noncompliance
Epilepsy status post vagus nerve stimulator implantation at [facility]
- UDS is unremarkable (positive only for THC and he has a 'marijuana card' for his epilepsy). Patient with prescription for Klonopin/PDMP checked. However UDS was negative.
- Alcohol is negative. Reported history of alcohol abuse - but patient has always denied and all prior EtOH levels here have been negative.
- Other labs are unremarkable without evident source for TME.
- CT head with chronic L sided encephalomalacia (? prior TBI) but no acute findings.
- Differential at this point includes post-ictal state / seizure versus
- Ativan IV PRN any breakthrough seizures, etc.
- Zyprexa PRN for agitation.
- Psychiatry evaluation for further recommendations. And no further psych medication or psych disorder suspected.
- Continue with home antiepileptic regimen of Briviact, Klonopin, gabapentin and Topamax. No need for further antiepileptic per neurology.
- Discussed with patient and mother over the phone in details on 06/12 and 06/13. Per patient mother patient had multiple episode of seizures at home and was recently seen by his outpatient neurologist at [facility]. Outpatient neurologist
increased patient Topamax and gabapentin. Mother did state that patient have a tendency to cut down his antiepileptic medication dosing and sometimes even not take the medication. It seems patient had multiple episode of seizures secondary to
noncompliance leading to confusion. Mentation seems to be improving. Will need to decide on IV antiepileptics moving forward and if additional medication will needed to be added. Will await further neurology recs. Unable to perform MRI as
patient vagal nerve stimulator which per MRI dept, 'needs to be interrogated and turned off by the neurologist. Patient does not have a remote, and thus unable to perform MRI Brain. '
- Mentation at baseline-confirmed with mother too. no pressured speech.
DVT Prophylaxis: SCDs
Code Status: Full
d/w psychiatry and neurology on 06/12 and 06/13. Per neurology patient can be discharged. No further workup required.
Counseled daily about compliance of medication. Patient verbalized understanding. States he will stop weaning himself off medication.
Discussed with discussed with patient mother over the phone in details. Patient mother will worm picker patient.
More than 30 minutes spent in discharge including
Final examination of the patient
Summarizing hospital stay
Instructions for continuing care to all relevant caregivers
Preparation of discharge records, prescriptions, and referral forms
Total time spent (in minutes): 52
Anticipated Discharge: Today
Subjective/Interval History
-
Date of Service: June 13, 2024
feeling better
eager to go home
no overnight events
states he will be compliant with meds moving forward.
Objective Data
-
Labs:
Laboratory Results
06/13/24
06:25
WBC 17.0 H
Hgb 17.2
Hct 49.0
Plt Count 197
Sodium 133 L
Potassium 3.7
Chloride 104
Carbon Dioxide 19 L
BUN 18
Creatinine 0.7
Glucose 121 H
Calcium 8.9
Total Bilirubin 1.5 H
AST 16 L
ALT 15
Alkaline Phosphatase 87
Vital Signs:
Vital Signs
Temp Pulse Resp BP Pulse Ox
99.7 F 94 18 113/62 98
06/13/24 07:10 06/13/24 07:10 06/13/24 07:10 06/13/24 07:10 06/13/24 07:10
I&O
06/12/24 06/13/24 06/14/24
06:59 06:59 06:59
Intake Total 240 / 240 1800 / 1800
Output Total 450 / 450 2530 / 2530
Balance -210 / -210 -730 / -730
Physical Exam
-
General: Well Developed and No Apparent Distress
HEENT: Normocephalic, Atraumatic and Moist Mucous Membranes
Respiratory: Clear to Auscultation
Cardiac: Regular Rhythm, S1/S2 and Other (Vagus nerve stimulator palpated nontender.); Negative Murmur, Rub or Gallop
GI: Soft, Nontender, Nondistended and Normal Bowel Sounds; Negative Organomegaly
Rectal: Deferred by Provider
Musculoskeletal: No Clubbing, No Cyanosis and No Edema
Skin: Negative Rash
Neuro: Awake, Alert, Oriented, AO x 3 and Nonfocal/Grossly Intact
Psych: Anxious
--- NOTE | 2024-06-13 10:52 | W.DCSUMMARY ---
Discharge Summary
Discharge Data
Date of Admission: 06/11/24
Date of Discharge: 06/13/24
-
Pending Results: No
Hospital Course
48-year-old male past medical history of alcohol abuse, polysubstance abuse, epilepsy who is presenting from home with altered mental status. Upon admission patient underwent extensive blood work. Alcohol level was negative. Patient UDS was
positive for marijuana and patient stated he has a marijuana card. Patient also prescribed benzodiazepine however UDS was negative. Patient went CT of the head which showed chronic left-sided encephalomalacia. Patient has a history of epilepsy
and follows with [facility]ist and also has a history of vagus nerve stimulator implantation. Patient initially was started on Keppra which was discontinued. Neurology evaluated the patient and started on fosphenytoin. Upon further
discussion with patient and patient mother it was found that patient has a history of noncompliance with medication. Patient stated he was trying to wean himself off Topamax even though patient's outpatient neurology increase his Topamax dose of
100 mg twice daily. Patient did not have any further episode of seizures while he was maintained on his outpatient antiepileptic medication. Per neurologist discontinue further fosphenytoin. Patient mother was updated throughout hospitalization.
Patient was back to his baseline mental status. Per neurology and psychiatry patient can be discharged home. Patient was recommended to avoid weaning himself off medication without discussing his antiepileptic medication with his primary
neurologist. Patient verbalized understanding. Patient will be discharged under patient mother care.
Discharge Plan
-
Patient Disposition: Home (Routine Discharge)
Discharge Diagnosis/Procedures: Toxic metabolic encephalopathy likely secondary to postictal state secondary to seizure secondary to noncompliance with medication
Condition: Fair
Diet: Regular
Activity: As tolerated
Driving Restrictions: No driving
Activity Restrictions/Additional Instructions:
Follow up with your primary neurologist in 1- 2 weeks.
Referrals:
UNKNOWN - PT DOES,NOT KNOW [Family Provider] - in less than 1 week
Prescriptions:
Continued
Briviact 100 mg tablet
100 mg PO BID@0800,1999
Patient Comments:
05/29/2022: last filled 05/18/22, 60 tabs for 30 days from [id number]
clonazepam 1 mg Tablet
1 mg PO BID
folic acid 1 mg Tablet
1 mg PO DAILY
gabapentin 400 mg Capsule
800 mg PO BID
topiramate 50 mg Tablet
100 mg PO BID
Discharge Orders:
Discharge Patient (As Directed); Ordered 06/13/24
Ordered By: Francois Mcghee
Discharge Date and Time
Discharge Date/Time: 06/13/24 12:53
Print Language: CUBAN
[2024-06-13 11:02] VITALS: BP 127/70
--- NOTE | 2024-06-13 11:34 | W.PN.NEURO.1 ---
Today's Communication / Plan
-
.
Subjective/Objective
Subjective Data
Date of Service: June 13, 2024
Neurology follow-up note
HPI: Mr. James reports no complaints. He states that his mom will be picking him up in afternoon after her massage.
PMH: epilepsy, polysubstance addiction.
PSH: VNS
SH: lives in recovery house; former smoker, h/o incarceration, used to work in construction, uses THC, has 18-year-old daughter:
FH: Unknown
All: Depakote�hearing loss
ROS: Negative for headache, weakness, sensory deficits, chest pain, shortness of breath.
General: Well developed. In no acute distress.
Cardio: Regular rate and rhythm without murmur. Extremities are without cyanosis or edema.
Neuro:
Mental Status: Alert, oriented to name, month, year, and date. Able to cross midline. Unable to do serial sevens. Fluent, no hemineglect.
Cranial Nerves: Pupils are equally round and reactive to light. Horizontal EOMs full. Blinks to threat bilaterally. No ptosis. No nystagmus. V1-V3 intact to light touch and pinprick bilaterally, symmetric. Face symmetric. Normal hearing AU.
The palate elevated well. SCMs and traps 5/5. Tongue midline. No dysarthria.
Motor: All limbs antigravity symmetrically purposefully
Coordination: No tremors, no dysmetria.
Gait: deferred
Assessment and Plan:
I. Multifactorial encephalopathy, improved.
II. Left cerebral hemiatrophy
III. 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
-Telemetry monitoring
-Seizure precautions
-Continue Clonazepam 1 mg twice daily, Briviact 100 mg twice daily, gabapentin 400 mg twice daily and Topamax 50 mg twice daily
-No driving for 6 months.
-Outpatient neurology follow-up in 1-2 weeks.
I personally reviewed all radiology and labs along with past medical records pertinent to current medical problems. Total time spent in patient care is 40 minutes.
Thank you for allowing us to participate in the care of this patient. WPlease do not hesitate to contact us with any questions or concerns.
Objective Data
Vital Signs
Temp Pulse Resp BP Pulse Ox
36.8 C 100 19 127/70 97
06/13/24 11:02 06/13/24 11:02 06/13/24 11:02 06/13/24 11:02 06/13/24 11:02
Lab Results
06/13/24 06:25
06/13/24 06:25
Sodium 133 mmol/L (135-145) L 06/13/24 06:25
Potassium 3.7 mmol/L (3.5-5.1) 06/13/24 06:25
BUN 18 mg/dl (9-20) 06/13/24 06:25
Glucose 121 mg/dl (70-99) H 06/13/24 06:25
Calcium 8.9 mg/dl (8.4-10.2) 06/13/24 06:25
Phosphorus 3.1 mg/dl (2.5-4.5) 06/12/24 05:49
Ur Buprenorphine Negative (Negative) 06/11/24 14:27
Patient Allergies
divalproex sodium [From Depakote] Allergy (Verified 06/11/24 23:35)
pt states he loses his hair
[2024-06-14 13:06] LABS: HIV Combo Negative (Negative)
== END 2024-06-13 12:53 | disposition home or self-care (01) | DRG 100 ==
LOC: 3 WEST ACU 03:26
PROVIDERS: Nurse Practitioner; ADMITTING PHYSICIAN Hospitalist; ATTENDING PHYSICIAN Hospitalist; CONSULT PHYSICIAN Psychiatry & Neurology Neurology; EMERGENCY PHYSICIAN Emergency Medicine; OTHER PHYSICIAN Psychiatry & Neurology Psychiatry
DX: G40.909 Epilepsy, unspecified, not intractable, without status epilepticus (principal); G92.8 Other toxic encephalopathy; R47.01 Aphasia; G93.89 Other specified disorders of brain; T42.6X6A Underdosing of other antiepileptic and sedative-hypnotic drugs, initial encounter; Z91.128 Patient's intentional underdosing of medication regimen for other reason; Z87.820 Personal history of traumatic brain injury; Z79.899 Other long term (current) drug therapy; Z96.82 Presence of neurostimulator; Z87.891 Personal history of nicotine dependence
CPT/HCPCS: 70450; 71045; 80048; 80053; 80306; 80307; 81003; 81015; 82077; 82550; 83735; 84100; 84443; 85025; 85027; 86803; 87389; 93005; 95816; 96361; 96365; 96367; 96375; 99285

== ENCOUNTER 2024-09-10 02:00 | Emergency (ER) | payer MEDICARE, OTHER, SELFPAY ==
[2024-09-10] VITALS (7 sets, daily range): BP systolic 91–119; BP diastolic 57–79; BMI 21.7
[2024-09-10 02:35] LABS: Glucose - Point of Care 96 mg/dl (70-99)
[2024-09-10 02:56] LABS: Hematocrit 42.2 % (39.0-52.0); Hemoglobin 14.8 g/dL (13.0-18.0); Mean Corp Hgb Conc. 35.1 g/dL (33.0-37.0); Mean Corpuscular Hgb 31.5 pg (27.0-31.0); Mean Corpuscular Volume 89.8 fL (80.0-94.0); Mean Platelet Volume 9.4 fL (7.4-10.4); Platelet Count 212 10^3/uL (130-400); Red Cell Dist. Width 13.1 % (11.5-14.5); White Blood Cell Count 7.2 10^3/uL (4.8-10.8)
[2024-09-10 02:59] LABS: Urine Albumin Negative (Neg - Trace); Urine Bilirubin Negative (Negative); Urine Character Clear (Clear); Urine Color Yellow; Urine Glucose Negative (Negative); Urine Ketone Negative (Negative); Urine Leukocyte Negative (Negative); Urine Nitrite Negative (Negative); Urine Occult Blood Negative (Negative); Urine Specific Gravity 1.015 (<1.030); Urine Urobilinogen Negative (Neg - 1+)
[2024-09-10 03:07] LABS: ALT (SGPT) 20 U/L (0-50); AST (SGOT) 20 U/L (17-59); Albumin 4.5 g/dl (3.5-5.0); Alkaline Phosphatase 88 U/L (38-126); Blood Urea Nitrogen 15 mg/dl (9-20); Calcium 9.2 mg/dl (8.4-10.2); Carbon Dioxide 21 mmol/L (22-30); Chloride 106 mmol/L (98-107); Estimated Creatinine Clearance 114 ml/min; Glucose 93 mg/dl (70-99); Potassium 3.7 mmol/L (3.5-5.1); Sodium 141 mmol/L (135-145); Total Bilirubin 0.5 mg/dl (0.2-1.3); Total Protein 6.6 g/dl (6.3-8.2); eGFR > 60.00
[2024-09-10 03:36] LABS: Amphetamines Negative (Negative); Barbiturates Negative (Negative); Benzodiazepines Negative (Negative); Buprenorphine Negative (Negative); Cocaine Negative (Negative); Marijuana Positive (Negative); Methadone Negative (Negative); Methamphetamines Negative (Negative); Opiates Negative (Negative); Phencyclidine Negative (Negative); Tricyclic Antidepressants Negative (Negative)
--- NOTE | 2024-09-10 04:53 | ED.GENMED ---
History of Present Illness
General
Chief Complaint: Seizure
Source: patient, ambulance crew and previous hospital records (Previous hospitalization May 2024 for breakthrough seizure related to noncompliance with antiepileptics.)
Exam Limitations: none
Time Seen by Provider: 09/10/24 04:47
Nursing documentation reviewed up to this point in time: agreed with
History of Present Illness
History of Present Illness:
This is a 48-year-old gentleman with prior history of polysubstance abuse, history of epilepsy, follows with neurologist at [facility] who presents via EMS after suffering several grand mal seizures tonight the longest of which lasting approximately
3 minutes. He was given a total of 10 mg IV Versed prehospital.
There was no report of vomiting nor incontinence.
Patient was hospitalized here May 2020 for after suffering several seizures and was noted to be persistently confused requiring hospitalization. It was discovered that breakthrough seizures were related to patient's noncompliance with his
antiepileptics he was attempting to wean himself off of his medications.
His regular antiepileptic medications were resumed including Topamax 100 mg twice daily, Briviact 100 mg twice daily and clonazepam 1 mg twice daily, Topamax 100 mg twice daily.
Patient arrives to the ED initially mildly confused and drowsy which has quickly abated. He now remains awake and alert, easily conversant. Offers no complaints.
He denies alcohol nor drug use other than medical marijuana which is consistent with previous histories.
He states he has been compliant with his medications, has not missed doses or decreased his doses.
Prior to tonight has been feeling well, denies breakthrough seizures until tonight.
Past History
Past History
ED Past Medical History: Seizures and Other (Seizure disorder with frequent breakthrough seizures, polysubstance drug use)
ED Past Surgical History: Other (Brain stimulator for seizure disorder)
Social History
Tobacco: Smoker
Drug: Former user and Marijuana
Personal: Single
Living: with family
Employment: Not employed
Family History
Family History: Other (Noncontributory)
Phy Exam
Physical Exam
Physical Exam:
GENERAL: 48-year-old gentleman appears his stated age, awake and alert, pleasant, appears in no acute distress. Easily conversant.
EYE: pupils equal and reactive. anicteric
NECK: Supple, nontender, no meningismus, no significant adenopathy.
ENT: posterior pharynx is clear, oral mucosa is moist. There is a very superficial abrasion right lateral tongue without hematoma nor bleeding. TM clear b/l, nares patent.
CARDIAC: Regular rate and rhythm. no murmur.
LUNGS: Clear breath sounds bilaterally, no acute respiratory distress, no wheezes/rales/rhonchi
ABDOMEN: Soft, nondistended, without focal tenderness, no r/g, no cvat. normoactive BS.
NEUROLOGICAL: Alert and oriented x3, no focal neuro deficits.
SKIN: Warm and dry, normal color, skin intact. No rash.
MUSCULOSKELETAL: No C/C/E. peripheral pulses are full and equal b/l. No palpable tenderness.
PSYCH: Normal and appropriate interaction.
Course
Orders/Labs/Results
Orders:
Orders
09/10/24 02:45
Complete Blood Count/No Diff Urgent
Comprehensive Metabolic Panel Urgent
Urinalysis Reflex To Culture Urgent
Date Specimen was Collected: 09/10/24
Time Specimen was Collected: 02:44
Urine Drug Abuse Screen Urgent
Date Specimen was Collected: 09/10/24
Time Specimen was Collected: 02:44
09/10/24 06:18
Brivaracetam [Briviact] 100 mg PO NOW STA
Clonazepam [Klonopin] 1 mg PO NOW STA
Gabapentin [Neurontin] 800 mg PO NOW STA
Topiramate [Topamax] 100 mg PO NOW STA
Abnormal Lab Results
09/10/24
02:45
MCH 31.5 H pg
(27.0-31.0)
Carbon Dioxide 21 L mmol/L
(22-30)
U Marijuana (THC) Screen Positive H
(Negative)
09/10/24 02:45
09/10/24 02:45
Vital Signs
Initial and Last Documented VS:
Initial Vital Signs
Pulse Resp BP Pulse Ox
104 12 112/67 100
09/10/24 02:05 09/10/24 02:05 09/10/24 02:05 09/10/24 02:05
Last Documented Vital Signs
Temp Pulse Resp BP Pulse Ox
97.6 F 55 15 111/57 95
09/10/24 02:17 09/10/24 06:01 09/10/24 06:01 09/10/24 06:01 09/10/24 06:01
MDM/Problems Addressed
Differential Diagnosis Includes:
Patient presents after suffering several grand mal seizures at home tonight.
He remains seizure-free since arrival to the ED. Awake and alert, oriented x 3, at his baseline.
Reports compliance with antiepileptic medications and denies drug use other than medical marijuana.
UDS is consistent with history.
Labs are unremarkable.
Will continue to observe in the ED and if he remains seizure-free we will plan for discharge to home with recommendations for prompt follow-up with his neurology specialist at [facility].
Chronic conditions affecting care: Neurological disorder (Seizure disorder)
Acute Exacerbation and/or Progression of Chronic Illness: Neurological disorder (Seizure disorder)
*Pulse Oximetry
Patient hypoxic: no
*[facility] [employer] Interpretation
Rate: normal
Interpretation: normal
Rhythm: sinus
*Critical Care Note
Total Time (30-74mins, 75-104mins- exclusive of procedures): Not Applicable
Update Note
Update Note:
06:10
Patient remains seizure-free.
I have spoken with patient's mother, Ene who states patient had 2 grand mal seizures tonight. She was concern for possible cocaine use however reassured that his UDS is negative save for THC.
She states that patient has had a few brief breakthrough seizures since hospitalized in May.
She is unsure if he has been compliant with medications but as to her knowledge she does not believe he has been attempting to wean his medications as was the case in May.
Plan is to continue to observe with discharge this morning if he remains seizure-free.
Recommend prompt follow-up with his neurologist at [facility].
Both patient and mom agree with this plan.
Mom will be able to cloth picker her son around noon today.
ED Attending Note
-
Portions of this chart may have been created with voice recognition software.� Occasional wrong word or��sound alike� substitutions may have occurred due to the inherent limitations of voice recognition software.
Discharge Plan
Departure
Patient Disposition: Home (Routine Discharge)
Date of Disposition: 09/10/24
Time of Disposition: 06:17
Patient with high blood pressure during this ER visit?: No
Condition: Good
Discharge Problem:
Breakthrough seizure
Instructions: Epilepsy in adults
Prescriptions:
No Action
Briviact 100 mg tablet
100 mg PO BID@0800,2000
Patient Comments:
05/29/2022: last filled 05/18/22, 60 tabs for 30 days from [id number]
clonazepam 1 mg Tablet
1 mg PO BID
folic acid 1 mg Tablet
1 mg PO DAILY
gabapentin 400 mg Capsule
800 mg PO BID
topiramate 50 mg Tablet
100 mg PO BID
Referrals:
Carlos Mojica MD [Family Provider] -
Activity Restrictions/Additional Instructions:
Call your neurologist today for prompt follow-up
Interventions
Interventions:
*Risk Screen - Suicide Last Done: 09/10/24 02:17
*General Assessment Last Done: 09/10/24 02:17
*Neglect/Abuse Screening Last Done: 09/10/24 02:17
*ED- Fall Risk Assessment Last Done: 09/10/24 02:17
*ED COVID-19 Vaccine History Last Done: 09/10/24 02:17
ED- Cardiac Assessment Last Done: 09/10/24 02:31
ED- Neurological Assessment Last Done: 09/10/24 02:31
ED- Pulmonary Assessment Last Done: 09/10/24 02:31
Discharge Date and Time
Print Language: AUSTRIAN
[2024-09-10] MEDS: NEURONTIN 800 MG PO (07:35)
[2024-09-10] MEDS: KLONOPIN 1 MG PO (07:36)
[2024-09-10] MEDS: BRIVIACT 100 MG PO (07:36)
[2024-09-10] MEDS: TOPAMAX 100 MG PO (07:37)
== END 2024-09-10 11:15 | disposition home or self-care (01) ==
LOC: EMR 02:00
PROVIDERS: EMERGENCY PHYSICIAN Emergency Medicine; FAMILY PHYSICIAN Family Medicine
DX: G40.909 Epilepsy, unspecified, not intractable, without status epilepticus (principal); Z79.899 Other long term (current) drug therapy; F17.200 Nicotine dependence, unspecified, uncomplicated
CPT/HCPCS: 99283; 80053; 80306; 81003; 82962; 85027

== ENCOUNTER 2024-11-28 23:49 | Inpatient (IN) | payer MEDICARE, OTHER, SELFPAY ==
[2024-11-28] VITALS (14 sets, daily range): BP systolic 103–130; BP diastolic 54–83; BMI 21.9
[2024-11-28] MEDS: KEPPRA 1000 MG IV (18:11)
[2024-11-28] MEDS: ATIVAN 0.5 MG IV (18:12)
[2024-11-28 18:27] LABS: Hematocrit 47.2 % (39.0-52.0); Hemoglobin 16.4 g/dL (13.0-18.0); Mean Corp Hgb Conc. 34.7 g/dL (33.0-37.0); Mean Corpuscular Hgb 31.4 pg (27.0-31.0); Mean Corpuscular Volume 90.2 fL (80.0-94.0); Mean Platelet Volume 8.9 fL (7.4-10.4); Platelet Count 238 10^3/uL (130-400); Red Blood Cell Count 5.23 10^6/uL (4.70-6.10); Red Cell Dist. Width 12.3 % (11.5-14.5); White Blood Cell Count 10.7 10^3/uL (4.8-10.8)
[2024-11-28 18:42] LABS: ALT (SGPT) 20 U/L (0-50); AST (SGOT) 24 U/L (17-59); Acetaminophen < 10 ug/ml (10-30); Albumin 4.6 g/dl (3.5-5.0); Alkaline Phosphatase 106 U/L (38-126); Blood Urea Nitrogen 17 mg/dl (9-20); Calcium 9.9 mg/dl (8.4-10.2); Carbon Dioxide 28 mmol/L (22-30); Chloride 106 mmol/L (98-107); Estimated Creatinine Clearance 114 ml/min; Glucose 107 mg/dl (70-99); Magnesium 1.8 mg/dl (1.6-2.3); Potassium 4.2 mmol/L (3.5-5.1); Salicylate < 1.0 mg/dl (2.0-20.0); Sodium 140 mmol/L (135-145); Total Bilirubin 0.9 mg/dl (0.2-1.3); Total Protein 7.3 g/dl (6.3-8.2); eGFR > 60.00
[2024-11-28 18:44] LABS: Alcohol None Detected
--- NOTE | 2024-11-28 19:13 | ED.GENMED ---
History of Present Illness
<Kyle Wynne MD - Last Filed: 11/30/24 08:00>
General
Chief Complaint: Seizure
Source: patient
Exam Limitations: none
Time Seen by Provider: 11/28/24 18:05
Nursing documentation reviewed up to this point in time: agreed with
History of Present Illness
History of Present Illness:
Patient with history of anxiety, depression, substance and alcohol abuse, and seizure disorder on Briviact and Topamax, presents to ED for medical evaluation after he expressed suicidal thoughts to his mother, as well as not taking any of his
prescribed medications. Patient brought to ED by paramedics and police. Per report, patient had seizure-like activity and brought to the hospital, which now has resolved. Upon arrival, patient is alert and awake, and has no physical complaints.
Patient does admit to having had suicidal thoughts. Denies fever or chills. Denies headache. Patient does admit to having had alcohol and opioid.
Past History
<Kyle Wynne MD - Last Filed: 11/30/24 08:00>
Past History
ED Past Medical History: Seizures and Other (Seizure disorder with frequent breakthrough seizures, polysubstance drug use)
ED Past Surgical History: Other (Brain stimulator for seizure disorder)
Social History
Tobacco: Smoker
Drug: Former user and Marijuana
Personal: Single
Living: with family
Employment: Not employed
Family History
Family History: Other (Noncontributory)
Review of Systems
<Kyle Wynne MD - Last Filed: 11/30/24 08:00>
Review of Systems
Allergies reviewed?: Yes
All Other Systems: ROS reviewed and negative except as documented in HPI and ROS
Constitutional: Reports no symptoms; Denies fever
Respiratory: Reports no symptoms; Denies cough
Cardiac: Reports no symptoms; Denies chest pain
ABD/GI: Reports no symptoms; Denies vomiting or diarrhea
Musculoskeletal: Reports no symptoms
Skin: Reports no symptoms
Neurological: Reports no symptoms
Psychiatric: Reports suicidal
Phy Exam
<Kyle Wynne MD - Last Filed: 11/30/24 08:00>
Physical Exam
Physical Exam:
Physical Exam
General: no apparent distress, not acutely ill. afebrile
Head: nc/at. eomi
Neck: supple. no meningeal signs.
Heart: s1/s2 regular rate and rhythm
Lungs: no acute respiratory distress. clear bilaterally
Abdomen: normal bowel sounds. not tender.
Neuro: alert and oriented x 3. no focal neurological deficits
Skin: no rash
Psychiatric: interactive but at times agitated and confrontational
Extremities: no edema. no calf tenderness.
Course
<Kyle Wynne MD - Last Filed: 11/30/24 08:00>
Orders/Labs/Results
Orders:
Orders
11/28/24 18:05
Levetiracetam Injectable [Keppra] 1,000 mg IV NOW STA
Lorazepam [Ativan] 0.5 mg IV NOW STA
11/28/24 18:06
Urine Drug Abuse Screen Urgent
Date Specimen was Collected: 11/29/24
Time Specimen was Collected: 07:48
11/28/24 18:21
Acetaminophen Urgent
Alcohol Urgent
Complete Blood Count/No Diff Urgent
Comprehensive Metabolic Panel Urgent
Magnesium Urgent
Phosphorus Urgent
Comment: ADD ON
Salicylate Urgent
11/28/24 18:50
Haloperidol Lactate [Haldol] 5 mg IV NOW STA
Lorazepam [Ativan] 1 mg IV NOW STA
11/28/24 18:51
1:1 Observation - Suicide/ Violent Behavior As Directed
Haloperidol Lactate [Haldol] 5 mg .ROUTE .STK-MED ONE
Lorazepam [Ativan] 2 mg .ROUTE .STK-MED ONE
11/28/24 18:53
Haloperidol Lactate [Haldol] 5 mg IM NOW STA
Lorazepam [Ativan] 1 mg IM NOW STA
Restraints - Violent As Directed
Restraint Type-: Locked-4 point/4 rails
Apply From (date): 11/28/24
Apply from (time): 18:53
Remove (date): 11/28/24
Remove (time): 23:38
11/28/24 19:38
1:1 Observation - Suicide/ Violent Behavior As Directed
11/28/24 23:04
Consult Neurology [NEUROLOGY CONSULT] Routine
Consulting Provider: Romero Rodriguez
Was physician already notified: Yes
Levetiracetam Injectable [Keppra] 1,500 mg IV NOW STA
11/28/24 23:20
CPK [Creatine Phosphokinase] Stat
Lactate Level [Lactic Acid] Stat
11/28/24 23:21
One to One Observation - Suicide/Violent [1:1 Observation - Suicide/ Violent Behavior] As Directed
Consult Notification Routine
Specialty to Notify: Neurology
Date consulting provider notified: 11/29/24
Time consulting provider notified: 07:09
Notified:: Provider
Comment: Dr Rodriguez, who is on duty, via TT
NEUROLOGY CONSULT Routine
Consulting Provider: Romero Rodriguez
Was physician already notified: No
Reason for consult: breakthrough seizures
Prolactin Stat
Topiramate (Topamax) [S] Stat
Lorazepam [Ativan] 2 mg IV Q4HPRN PRN
Precautions As Directed
Type of Precautions: Seizure
11/28/24 23:22
Consult Notification Routine
Specialty to Notify: Psychiatry
Date consulting provider notified: 11/29/24
Time consulting provider notified: 07:10
Notified:: Provider
Comment: Dr Leal, who is on duty, via TT
PSYCHIATRY CONSULT Routine
Consulting Provider: Messi George
Was physician already notified: No
Reason for consult: suicidal ideations
11/28/24 23:25
Admit/Transfer Patient As Directed
Co-Sign Provider:
Level of Care: Inpatient admission
Assign to:: IMU- Intermediate Care
Physician / Group: hospitalist
Diagnosis: breakthrough seizures
Reason for Hospitalization: breakthrough seizures
Expected length of stay greater than two midnights?: Yes
ELOS- Estimated Length of Stay in days: 2
I certify the patient meets the requirements for IP care: Yes
0.9% Sodium Chloride [Nss (Preservative Free)] 1 ml IV Q4HPRN PRN
PRN Pain Medication Management As Directed
May give lesser potent ordered pain med per pt: Yes
preference::
Protocol:: Medication orders for pain may be administered in a
manner that supports deferring to patient preference
when the pt is:
- Requesting an ordered lesser potent pain medication.
Least to most potent pain medications are defined
as: acetaminophen < NSAID < tramadol < opioids
(morphine, oxycodone, hydromorphone).
- Requesting a lesser dose of the same medication IF
ORDERED.
- Requesting a less intrusive route of administration
if both routes are prescribed by the provider (PO <
IV).
11/28/24 23:27
Code Status As Directed
Resuscitation Status: Full Code
11/28/24 23:29
Add On- LAB Routine
Tests Added?: magnesium, phosphorus
CR Chest Portable - 1 View Urgent
Comment:
Reason For Exam: cough
Reason Study Needs to be Portable: Other
11/28/24 23:36
PRN Pain Medication Management As Directed
May give lesser potent ordered pain med per pt: Yes
preference::
Protocol:: Medication orders for pain may be administered in a
manner that supports deferring to patient preference
when the pt is:
- Requesting an ordered lesser potent pain medication.
Least to most potent pain medications are defined
as: acetaminophen < NSAID < tramadol < opioids
(morphine, oxycodone, hydromorphone).
- Requesting a lesser dose of the same medication IF
ORDERED.
- Requesting a less intrusive route of administration
if both routes are prescribed by the provider (PO <
IV).
11/29/24 00:21
Acetaminophen [Tylenol] 650 mg PO Q4HPRN PRN
Bisacodyl [Dulcolax] 10 mg RECTAL [id number] PRN
Docusate W/Senna [Senokot-S] 1 tablet PO BIDPRN PRN
Ondansetron Injectable [Zofran] 4 mg IV Q8HPRN PRN
Polyethylene Glycol Powder [Miralax] 17 grams PO DAILYPRN PRN
11/29/24 00:21
Activity As Directed
Activity Level: Out of Bed-Early Mobility
Vital Signs As Directed
Frequency: Per unit guidelines
DX Deep Vein Thrombosis Video Routine
11/29/24 08:00
EEG Routine Routine
Reason for Exam: seizures
Brivaracetam [Briviact] 150 mg PO BID@0800,1999
Clonazepam [Klonopin] 1 mg PO BID
Gabapentin [Neurontin] 800 mg PO BID
Levetiracetam Injectable [Keppra] 1,500 mg IV Q12
Topiramate [Topamax] 100 mg PO BID
11/29/24 Lunch
NPO
Allow oral meds: Yes
Allow clear liquids: Sips of Clears
NPO with Ice Chips: Yes
11/29/24 18:00
Enoxaparin Sodium [Lovenox] 40 mg SC QPM
Abnormal Lab Results
11/28/24
18:21
MCH 31.4 H pg
(27.0-31.0)
Glucose 107 H mg/dl
(70-99)
Salicylates < 1.0 L mg/dl
(2.0-20.0)
Acetaminophen < 10 L ug/ml
(10-30)
11/28/24 18:21
11/28/24 18:21
Vital Signs
Initial and Last Documented VS:
Initial Vital Signs
Pulse Resp BP Pulse Ox
99 18 123/57 96
11/28/24 18:03 11/28/24 18:03 11/28/24 18:03 11/28/24 18:03
Last Documented Vital Signs
Temp Pulse Resp BP Pulse Ox
97.4 F 54 17 107/72 99
11/29/24 21:09 11/30/24 05:00 11/30/24 05:00 11/30/24 05:00 11/30/24 05:00
<Sherman Mooney, DO - Last Filed: 11/28/24 23:08>
Orders/Labs/Results
Orders:
Orders
11/28/24 18:05
Levetiracetam Injectable [Keppra] 1,000 mg IV NOW STA
Lorazepam [Ativan] 0.5 mg IV NOW STA
11/28/24 18:06
Urine Drug Abuse Screen Urgent
Date Specimen was Collected: 11/29/24
Time Specimen was Collected: 07:48
11/28/24 18:21
Acetaminophen Urgent
Alcohol Urgent
Complete Blood Count/No Diff Urgent
Comprehensive Metabolic Panel Urgent
Magnesium Urgent
Phosphorus Urgent
Comment: ADD ON
Salicylate Urgent
11/28/24 18:50
Haloperidol Lactate [Haldol] 5 mg IV NOW STA
Lorazepam [Ativan] 1 mg IV NOW STA
11/28/24 18:51
1:1 Observation - Suicide/ Violent Behavior As Directed
Haloperidol Lactate [Haldol] 5 mg .ROUTE .STK-MED ONE
Lorazepam [Ativan] 2 mg .ROUTE .STK-MED ONE
11/28/24 18:53
Haloperidol Lactate [Haldol] 5 mg IM NOW STA
Lorazepam [Ativan] 1 mg IM NOW STA
Restraints - Violent As Directed
Restraint Type-: Locked-4 point/4 rails
Apply From (date): 11/28/24
Apply from (time): 18:53
Remove (date): 11/28/24
Remove (time): 23:38
11/28/24 19:38
1:1 Observation - Suicide/ Violent Behavior As Directed
11/28/24 23:04
Consult Neurology [NEUROLOGY CONSULT] Routine
Consulting Provider: Romero Rodriguez
Was physician already notified: Yes
Levetiracetam Injectable [Keppra] 1,500 mg IV NOW STA
11/28/24 23:20
CPK [Creatine Phosphokinase] Stat
Lactate Level [Lactic Acid] Stat
11/28/24 23:21
One to One Observation - Suicide/Violent [1:1 Observation - Suicide/ Violent Behavior] As Directed
Consult Notification Routine
Specialty to Notify: Neurology
Date consulting provider notified: 11/29/24
Time consulting provider notified: 07:09
Notified:: Provider
Comment: Dr Rodriguez, who is on duty, via TT
NEUROLOGY CONSULT Routine
Consulting Provider: Romero Rodriguez
Was physician already notified: No
Reason for consult: breakthrough seizures
Prolactin Stat
Topiramate (Topamax) [S] Stat
Lorazepam [Ativan] 2 mg IV Q4HPRN PRN
Precautions As Directed
Type of Precautions: Seizure
11/28/24 23:22
Consult Notification Routine
Specialty to Notify: Psychiatry
Date consulting provider notified: 11/29/24
Time consulting provider notified: 07:10
Notified:: Provider
Comment: Dr Leal, who is on duty, via TT
PSYCHIATRY CONSULT Routine
Consulting Provider: Messi George
Was physician already notified: No
Reason for consult: suicidal ideations
11/28/24 23:25
Admit/Transfer Patient As Directed
Co-Sign Provider:
Level of Care: Inpatient admission
Assign to:: IMU- Intermediate Care
Physician / Group: hospitalist
Diagnosis: breakthrough seizures
Reason for Hospitalization: breakthrough seizures
Expected length of stay greater than two midnights?: Yes
ELOS- Estimated Length of Stay in days: 2
I certify the patient meets the requirements for IP care: Yes
0.9% Sodium Chloride [Nss (Preservative Free)] 1 ml IV Q4HPRN PRN
PRN Pain Medication Management As Directed
May give lesser potent ordered pain med per pt: Yes
preference::
Protocol:: Medication orders for pain may be administered in a
manner that supports deferring to patient preference
when the pt is:
- Requesting an ordered lesser potent pain medication.
Least to most potent pain medications are defined
as: acetaminophen < NSAID < tramadol < opioids
(morphine, oxycodone, hydromorphone).
- Requesting a lesser dose of the same medication IF
ORDERED.
- Requesting a less intrusive route of administration
if both routes are prescribed by the provider (PO <
IV).
11/28/24 23:27
Code Status As Directed
Resuscitation Status: Full Code
11/28/24 23:29
Add On- LAB Routine
Tests Added?: magnesium, phosphorus
CR Chest Portable - 1 View Urgent
Comment:
Reason For Exam: cough
Reason Study Needs to be Portable: Other
11/28/24 23:36
PRN Pain Medication Management As Directed
May give lesser potent ordered pain med per pt: Yes
preference::
Protocol:: Medication orders for pain may be administered in a
manner that supports deferring to patient preference
when the pt is:
- Requesting an ordered lesser potent pain medication.
Least to most potent pain medications are defined
as: acetaminophen < NSAID < tramadol < opioids
(morphine, oxycodone, hydromorphone).
- Requesting a lesser dose of the same medication IF
ORDERED.
- Requesting a less intrusive route of administration
if both routes are prescribed by the provider (PO <
IV).
11/29/24 00:21
Acetaminophen [Tylenol] 650 mg PO Q4HPRN PRN
Bisacodyl [Dulcolax] 10 mg RECTAL [id number] PRN
Docusate W/Senna [Senokot-S] 1 tablet PO BIDPRN PRN
Ondansetron Injectable [Zofran] 4 mg IV Q8HPRN PRN
Polyethylene Glycol Powder [Miralax] 17 grams PO DAILYPRN PRN
11/29/24 00:21
Activity As Directed
Activity Level: Out of Bed-Early Mobility
Vital Signs As Directed
Frequency: Per unit guidelines
DX Deep Vein Thrombosis Video Routine
11/29/24 08:00
EEG Routine Routine
Reason for Exam: seizures
Brivaracetam [Briviact] 150 mg PO BID@0800,1999
Clonazepam [Klonopin] 1 mg PO BID
Gabapentin [Neurontin] 800 mg PO BID
Levetiracetam Injectable [Keppra] 1,500 mg IV Q12
Topiramate [Topamax] 100 mg PO BID
11/29/24 Lunch
NPO
Allow oral meds: Yes
Allow clear liquids: Sips of Clears
NPO with Ice Chips: Yes
11/29/24 18:00
Enoxaparin Sodium [Lovenox] 40 mg SC QPM
Abnormal Lab Results
11/28/24
18:21
MCH 31.4 H pg
(27.0-31.0)
Glucose 107 H mg/dl
(70-99)
Salicylates < 1.0 L mg/dl
(2.0-20.0)
Acetaminophen < 10 L ug/ml
(10-30)
11/28/24 18:21
11/28/24 18:21
Vital Signs
Initial and Last Documented VS:
Initial Vital Signs
Pulse Resp BP Pulse Ox
99 18 123/57 96
11/28/24 18:03 11/28/24 18:03 11/28/24 18:03 11/28/24 18:03
Last Documented Vital Signs
Temp Pulse Resp BP Pulse Ox
97.4 F 54 17 107/72 99
11/29/24 21:09 11/30/24 05:00 11/30/24 05:00 11/30/24 05:00 11/30/24 05:00
<Kyle Wynne MD - Last Filed: 11/30/24 08:00>
MDM/Problems Addressed
MDM/Problems Addressed:
302 petition will be upheld by me, as patient does admit to having had suicidal thoughts, along with noncompliance with his medications.
During observation, patient noted to have seizure-like activity noted by nursing staff, lasting approximately 20 seconds with complete resolution, without any postictal confusion. Difficult to exclude potential seizure episode. As such, will
utilize Ceribell application and continue to observe.
<Sherman Mooney DO - Last Filed: 11/28/24 23:08>
*Critical Care Note
Total Time (30-74mins, 75-104mins- exclusive of procedures): Not Applicable
<Sherman Mooney DO - Last Filed: 11/28/24 23:08>
Update Note
Update Note:
I have been called to bedside frequently for seizure-like activity. Patient has these episodes where he starts grinding his teeth and has a blank stare. He intermittently urinates on himself but has not shown any convulsions. The bedside EEG
monitoring is currently not working and he takes the electrodes off. Case discussed with neurology. He already got 1 g of Keppra. Will load with 1.5 g more. Neuro will evaluate in a.m. for possible EEG before patient can be medically cleared for
psych facility
ED Attending Note
<Kyle Wynne MD - Last Filed: 11/30/24 08:00>
-
Portions of this chart may have been created with voice recognition software.� Occasional wrong word or��sound alike� substitutions may have occurred due to the inherent limitations of voice recognition software.
Discharge Plan
Departure
Patient Disposition: Admit
Date of Disposition: 11/28/24
Time of Disposition: 19:21
Admit to: Telemetry
Presentation/result/management discussed w/ accepting MD/DO: Hospitalist
Discharge Problem:
Suicidal ideation, Seizure
Interventions
Interventions:
*General Assessment Last Done: 11/28/24 18:18
*Neglect/Abuse Screening Last Done: 11/28/24 18:18
*ED- Fall Risk Assessment Last Done: 11/28/24 18:28
*Nursing Disposition Last Done: 11/29/24 00:08
ED- Cardiac Assessment Last Done: 11/28/24 19:59
ED- Neurological Assessment Last Done: 11/28/24 23:42
ED- Pulmonary Assessment Last Done: 11/28/24 19:59
Discharge Date and Time
Discharge Date/Time: 11/29/24 00:09
[2024-11-28] MEDS: HALDOL 5 MG IM (19:28)
[2024-11-28] MEDS: ATIVAN 1 MG IM (19:28)
[2024-11-28] MEDS: KEPPRA 1500 MG IV (23:22)
--- NOTE | 2024-11-28 23:30 | HPS.HSE ---
Family Physician
-
Family Physician: NO INTERVIEW UNKNOWN
Chief Complaint
-
suicidal thoughts
History of Present Illness
49yo M with PMhx of seizure d/o, polysubstance abuse, depression brought to ED since he was expressing suicidal thoughts to his mother, who called EMS. Patient himself declining that. Initially was for placement in psych facility, but developed
episodes of teeth grinding with some clonic activity concerned for seizures. No significant posictal state seen though. Unfortunately Cerebel did not work, so patient will have to be admitted for seizure mgmt and EEG as discussed with neurologist by
ED provider.
Medical History
Past Medical History
Past Medical History: Reports Other
Additional Past Medical History:
see HPI
Past Surgical History: Reports None
Social History
Tobacco: Smoker
Alcohol: None
Drug: Former User
Family History
Family History: Not pertinent
Allergies / Home Medications
Allergies reflects when Allergies were last updated in [employer].
Home Medications with original date entered in [employer]
Allergy/Medication List:
Allergies
Allergy/AdvReac Type Severity Reaction Status Date / Time
divalproex sodium (From Allergy pt states Verified 11/28/24 18:20
Depakote) he loses
his hair
Home Medications
brivaracetam 100 mg tablet (Briviact) 150 mg PO BID@0800,2000 Seizures 05/29/22
gabapentin 400 mg capsule 800 mg PO BID Neurological Condition 06/11/24
topiramate 50 mg tablet 100 mg PO BID Seizures 06/11/24
clonazepam 1 mg tablet 1 mg PO BID 11/28/24
Review of Systems
-
A 12 point ROS was completed and negative except as noted: Yes
Constitutional: Reports No Symptoms
Respiratory: Reports Cough
Physical Exam
Vital Signs
Vital Signs
Pulse Resp BP Pulse Ox
64 18 108/69 99
11/28/24 22:39 11/28/24 22:39 11/28/24 22:39 11/28/24 22:39
Physical Exam
General: No Apparent Distress, Comfortable and Conversant
HEENT: NormoCephalic, Anicteric and Moist mucous membranes; No Good Dentition
Respiratory: Clear and Rhonchi; No Wheezes or Crackles
Cardiac: S1/S2 and Regular Rhythm; No Murmur
GI: Soft, Non Tender and Non Distended
Genito-urinary: No costovertebral tender
Musculoskeletal: No Clubbing, No Cyanosis and No Edema
Skin: Warm; No Rash or Jaundice
Neuro: Awake, Alert, Oriented and AO x 3
Psych: Calm
Laboratory Results
-
11/28/24 18:21
11/28/24 18:21
Laboratory Results
Total Bilirubin 0.9 mg/dl (0.2-1.3) 11/28/24 18:21
AST 24 U/L (17-59) 11/28/24 18:21
ALT 20 U/L (0-50) 11/28/24 18:21
Alkaline Phosphatase 106 U/L (38-126) 11/28/24 18:21
Data Reviewed
-
Lab Data: Labs Reviewed by me
Impression/Plan
-
A/P:
#SUicidal ideations
Psych consult
1:1
#Breakthrough seizures
Keppra loading
cont home meds
Atvan PRN
Neurology consult: to provide further keppra dosage
Seizure precautions
EEG
check CPK, lactate, prolactin, topamax level
NPO until seizure free
Check Mg, Ph
#cough
chest XR
#Nicotine dependency
#Hx of substance abuse
Urine drug screen
Nicoderm PRN
DVT ppx lovenox
Full code
I have spent at least 75min admitting the patient
[2024-11-28] MEDS: ATIVAN 2 MG IV (23:52)
[2024-11-29] VITALS (40 sets, daily range): BP systolic 89–126; BP diastolic 54–87; BMI 21.2
[2024-11-29 00:02] LABS: Phosphorus 3.2 mg/dl (2.5-4.5)
[2024-11-29 01:16] LABS: Lactic Acid 0.6 mmol/L (0.7-2.0)
[2024-11-29 01:24] LABS: Creatine Phosphokinase 606 U/L (55-170)
[2024-11-29 01:41] LABS: Prolactin 35.2 ng/ml (3.7-17.9)
[2024-11-29] MEDS: NSS 1000 IV ×3 (01:51→17:29)
[2024-11-29] MEDS: NEURONTIN 800 MG PO ×2 (01:51→07:38)
[2024-11-29] MEDS: TOPAMAX 100 MG PO ×2 (01:51→07:38)
[2024-11-29] MEDS: ATIVAN 2 MG IV ×4 (02:56→15:51)
[2024-11-29] MEDS: NSS (PRESERVATIVE FREE) 1 ML IV ×3 (02:57→11:43)
[2024-11-29] MEDS: BRIVIACT 150 MG IV (03:46)
--- NOTE | 2024-11-29 06:09 | PTCARENOTE ---
2 witnessed seizures overnight.
1st seizure around 0125, ended up being a tonic clonic seizure, lasting about 45sec-1min. HR up 140's. pt confused & agitated post ictal.
2nd seizure around 0300, grinding teeth, laying still, eyes rolling back, HR normal, lasting about 30 sec. Pt also disoriented post ictal.
[employer] aware, ativan prn changed to q2h. Home seizure meds ordered & given. IVF ordered.
pt refusing blood work this morning.
aaox2, confused, agitated, forgetful. 1:1 in room. Pt denies any suicidal ideation, denies ever being suicidal 'why would anyone want to do that?' NSR/SB. Soft bps overnight. denies pain. pt incontinent urine, tried catching urine with urinal or
CC/SC for urine sample but pt refuses. when asked if pt is using or used drugs within the past year pt states 'yeah of course' but refuses to answer which ones.
Will monitor.
[2024-11-29] MEDS: BRIVIACT 150 MG PO ×2 (07:38→20:57)
[2024-11-29] MEDS: KEPPRA 1500 MG IV (07:38)
[2024-11-29] MEDS: KLONOPIN 1 MG PO ×2 (07:39→20:58)
[2024-11-29 08:23] LABS: Amphetamines Negative (Negative); Barbiturates Negative (Negative); Benzodiazepines Positive (Negative); Buprenorphine Negative (Negative); Cocaine Negative (Negative); Marijuana Positive (Negative); Methadone Negative (Negative); Methamphetamines Negative (Negative); Opiates Negative (Negative); Phencyclidine Negative (Negative); Tricyclic Antidepressants Negative (Negative)
[2024-11-29 08:41] LABS: Fentanyl, Urine Negative (Negative)
--- NOTE | 2024-11-29 09:05 | W.PN.HOSP.TC ---
Today's Communication/Plan
-
EEG
Restraints
Meds
Psyche and neuro eval.
Assessment / Plan
Assessment / Plan
49-year-old man brought in the hospital as he was expressing suicidal thoughts to his mother. Patient denies. Mom stated that patient has a history of seizures and
She does not think he takes medicines. He had seizures at home. He is seen at [facility] and recently had an appointment in August. Mom called [facility] with the seizures and they stated that patient needs to go to the hospital. Patient stated
that he does not care if he . EMS was called he was brought into the ER.
He had teeth grinding and some clonic activity where ER was concern for seizures. Cerebel was used which did not work and he was admitted for EEG. 302 petition was filed by mom supported by ER.
Patient has a history of trauma and seizures in the NICU.He was discharged with phenobarbital. He had a grand mal seizure at age 7 and he has been on different medicines since then. He has been seen at [facility] and also you can. They
categorized his seizures as intractable seizures. Mom states that seizures are not managed completely with medicines and sometimes he is not compliant either. He was diagnosed with bipolar disease in 2020 and has not taken medicines for that. He
also has a vagal nerve stimulator implanted in 2013 and was changed in March 2024. This was checked at [facility] and they feel that this is working even though mom believes it does not work that well. He follows up with Dr. Huan Copeland
at [facility] and was seen last in August 2023.
Patient also has a history of drug abuse he does not use it anymore. He has a history of alcohol abuse and is sober for 2 years now. He was in a recovery house and got out in April and has been living with mom until he gets housing . She is
working with [facility] to get him housing.
This morning patient had an episode where he was very agitated. He was threatening to leave, IV pulled out. During my conversation he started grinding his teeth, then had a Clonic movement, where he was straightening his arms and lifting it above
his head. The he was laid down to the bed then he started laughing hysterically.
Pupils are equal and reactive
Cardiovascular system S1-S2 appreciated
Chest clear to auscultation
Abdomen soft and nontender
Moving all extremities. Not cooperative for other neuroexams. No facial droop
# Tonic-clonic Movements with Teeth grinding.
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
Also not sure if this is postictal psychosis
Probable breakthrough seizure secondary to noncompliance with medicines.
We held off on giving Ativan
Get an EEG now
Prolactin was elevated
Patient has a vagal nerve stimulator placed in 2013 and changed in 2023
Follows up with Dr. Huan Copeland at [facility]
Neurology and psychiatry evaluation
Patient could not answer my question whether he was taking Briviact, gabapentin Topamax and clonazepam as prescribed .
Mom Says he was not taking meds.
Mom states that patient is supposed to be on 400 mg twice daily of Neurontin.
Continue Keppra ordered at 1500 mg twice a day, Topamax, Neurontin.
EEG
Transferred to ICU for 4 point restraints .
Maintain 1:1
# Marijuana use-urine drug screen positive for marijuana
# Smoker- [facility]. Smokes almost half a pack a day
# Alcohol abuse and stopped in [facility] for 2 years as of 2024.
# H/O Drug abuse in the past per mom
# DVT prophylaxis-Lovenox
# Full code
Responded to code purple, discussed with staff
Discussed with mom-mom requested a call from psychiatrist
D/W SW
Total Critical Care Time 38 minutes. I was immediately available to the patient and staff. I personally examined, reviewed labs, diagnostic images/reports, interpretations, treatment plans, discussed patient care with other providers and family ,
entered orders as appropriate and documented the medical record.
Anticipated Discharge: 24 - 48 hours
Subjective/Interval History
-
Date of Service: November 29, 2024
Objective Data
-
Labs:
Laboratory Results
11/29/24
05:42
Sodium Pending
Potassium Pending
Chloride Pending
Carbon Dioxide Pending
BUN Pending
Creatinine Pending
Glucose Pending
Calcium Pending
Vital Signs:
Vital Signs
Temp Pulse Resp BP Pulse Ox
98.4 F 61 14 107/69 93
11/29/24 08:00 11/29/24 06:00 11/29/24 06:00 11/29/24 06:00 11/29/24 04:00
I&O
11/28/24 11/29/24 11/30/24
06:59 06:59 06:59
Output Total 150 / 150 150 / 150
Balance -150 / -150 -150 / -150
--- NOTE | 2024-11-29 09:10 | PTCARENOTE ---
Patient received from IMU via bed accompanied by RNs x2, PCT, Security. Admitted to ICU 3363. Patient in 4 point locked restraints s/p code purple. SR 80s on CM. Patient is confused as to why he is in the hospital. He is easily agitated. Making
threatening comments about his mother. Basically negative physical assessment. See assessment counselor charted on worklist flowsheet. emissions repair technician at the bedside to perform EEG. Patient inappropriate in comments to the staff. Says he wants to go home. Bed in
low and locked position. 1:1 sitter Sherman at the bedside.
--- NOTE | 2024-11-29 09:31 | CON.NEURO ---
Addendum entered and electronically signed by Romero Rodriguez MD 11/29/24 17:44:
VNS interpreted
Battery 75-100%
current 1.5 auto 1.625 magnet 1.75 mA
pulse width 130 uSec
on time 30/60/60 sec
off 1.8 mins
autostim 45/day, magnet 1.17/day
this afternoon RN reported another seizure. agitated, not taking PO
will load Vimpat 400, then 200 q12
Original Note:
Neuro Assessment/Plan
Assessment
Routine EEG(06/11/2024) frequent right frontal sharps and generalized right greater than left slowing.
EEG 11/29/25 T2 sharps, seizure consists of generalized rhythmic 3 hz delta lasting ~30 s better seen on the left. tech notes patient yawning
would continue BRV 150 BID, Klonopin 1mg BID, gabapentin 400 BID,
instead of Topamax I would choose Trileptal 300 BID to start which I discussed with Dr Leal of psychiatry
d/c keppra
patient states he will not take them, will cheek the pills and spit them out like he did in skilled nursing; unfortunately I cannot help someone who doesn't want it
Consultation
Order
Date of Consultation: 11/29/24
Requesting Provider: Abiodun Otero
Reason for Consult: seizure
Subjective/Objective
Subjective Data
Date of Service: November 29, 2024
from h&p:
49yo M with PMhx of seizure d/o, polysubstance abuse, depression brought to ED since he was expressing suicidal thoughts to his mother, who called EMS. Patient himself declining that. Initially was for placement in psych facility, but developed
episodes of teeth grinding with some clonic activity concerned for seizures. No significant posictal state seen though. Unfortunately Cerebel did not work, so patient will have to be admitted for seizure mgmt and EEG as discussed with neurologist by
ED provider.
This morning code purple called for suspected seizure witnessed by ICU nurse - patient was agitated sitting on edge of bed, flexed forward, arms tensed up, facial movements. brief
patient says he takes Briviact, Klonopin, gabapentin. Doesn't take Topamax anymore
notes from mom: he follows with Dr Copeland at [place], supposed to be on BRV 150 BID but only takes 100 BID. gabapentin 400 BID unsure if he takes, and Topamax 100 BID, doesn't take it.
PMH: epilepsy, polysubstance addiction.
PSH: VNS
SH: lives in recovery house; former smoker, h/o incarceration, used to work in construction, uses THC, has 18-year-old daughter:
Objective Data
Vital Signs
Temp Pulse Resp BP Pulse Ox
36.9 C 61 14 107/69 93
11/29/24 08:00 11/29/24 06:00 11/29/24 06:00 11/29/24 06:00 11/29/24 04:00
Lab Results
11/28/24 18:21
Sodium 140 mmol/L (135-145) 11/28/24 18:21
Potassium 4.2 mmol/L (3.5-5.1) 11/28/24 18:21
BUN 17 mg/dl (9-20) 11/28/24 18:21
Glucose 107 mg/dl (70-99) H 11/28/24 18:21
Calcium 9.9 mg/dl (8.4-10.2) 11/28/24 18:21
Phosphorus 3.2 mg/dl (2.5-4.5) 11/28/24 18:21
Ur Buprenorphine Cancelled 11/29/24 07:51
Ur Buprenorphine Negative (Negative) 11/29/24 07:51
Patient Allergies
divalproex sodium (From Depakote) Allergy (Verified 11/28/24 18:20)
pt states he loses his hair
Physical Exam
-
Awake and alert, agitated, uncooperative
in restraints
moving all extremities
Medications
-
Active Medications
Generic Name Dose Route Start Last Admin
Trade Name Freq PRN Reason Stop Dose Admin
Acetaminophen 650 mg 11/29/24 00:21
Acetaminophen 325 Mg Tablet PO 12/27/24 00:20
Q4HPRN PRN
mild pain/[place]/temp> 100.4F
Bisacodyl 10 mg 11/29/24 00:21
Bisacodyl 10 Mg Rectal Suppository RECTAL 12/27/24 00:20
[id number] PRN
constipation
Brivaracetam 150 mg 11/29/24 08:00 11/29/24 07:38
Brivaracetam 50 Mg Tablet PO 12/27/24 07:59 150 mg
BID@0800,2000 MIKE Administration
Clonazepam 1 mg 11/29/24 08:00 11/29/24 07:39
Clonazepam 1 Mg Tablet PO 12/27/24 07:59 1 mg
BID MIKE Administration
Enoxaparin Sodium 40 mg 11/29/24 18:00
Enoxaparin Sodium 40 Mg/0.4 Ml Syringe SC 12/27/24 17:59
QPM MIKE
Gabapentin 800 mg 11/29/24 08:00 11/29/24 07:38
Gabapentin 400 Mg Capsule PO 12/27/24 07:59 800 mg
BID MIKE Administration
Sodium Chloride 1,000 mls @ 125 mls/hr 11/29/24 01:30 11/29/24 01:51
Nss IV 1,000 mls
.Q8H MIKE Administration
Dexmedetomidine HCl 400 mcg in 100 mls @ 0 mls/hr 11/29/24 09:30
Precedex IV
PER PROTOCOL MIKE
Protocol
Per Protocol
Levetiracetam 1,500 mg 11/29/24 08:00 11/29/24 07:38
Levetiracetam (100 Mg/Ml) 500 Mg/5 Ml Vial IV 12/27/24 07:59 1,500 mg
Q12 MIKE Administration
Lorazepam 2 mg 11/29/24 01:35 11/29/24 02:56
Lorazepam 2 Mg/Ml Vial IV 12/27/24 01:34 2 mg
Q2HPRN PRN Administration
seizures
Ondansetron HCl 4 mg 11/29/24 00:21
Ondansetron 4 Mg/2 Ml Vial IV 12/27/24 00:20
Q8HPRN PRN
nausea and vomiting
Polyethylene Glycol 17 grams 11/29/24 00:21
Polyethylene Glycol Powder 17 Grams Packet PO 12/27/24 00:20
DAILYPRN PRN
constipation
Polyethylene Glycol 17 grams 11/30/24 08:00
Polyethylene Glycol Powder 17 Grams Packet TUBE 12/28/24 07:59
DAILY MIKE
Senna/Docusate Sodium 1 tablet 11/29/24 00:21
Docusate W/Senna (Kim-Colace) Tablet PO 12/27/24 00:20
BIDPRN PRN
constipation
Sodium Chloride 0 flush 11/29/24 01:00
Sodium Chloride 0.9% (Flush) Syringe IV 12/27/24 00:59
PER PROTOCOL MIKE
Sodium Chloride 1 ml 11/29/24 01:38 11/29/24 02:57
Nss (Pf) 10 Ml Vial For Ativan 2 Mg Dose IV 12/26/24 23:24 1 ml
Q2HPRN PRN Administration
IV LORAZEPAM DILUTION
Topiramate 100 mg 11/29/24 08:00 11/29/24 07:38
Topiramate 100 Mg Tablet PO 12/27/24 07:59 100 mg
BID MIKE Administration
Home Medications
�Medication �Instructions �Recorded
brivaracetam 100 mg tablet 150 mg PO BID@0800,1999 Seizures 05/29/22
(Briviact)
gabapentin 400 mg capsule 800 mg PO BID Neurological 06/11/24
Condition
topiramate 50 mg tablet 100 mg PO BID Seizures 06/11/24
clonazepam 1 mg tablet 1 mg PO BID 11/28/24
--- NOTE | 2024-11-29 09:43 | PTCARENOTE ---
Patient had witnessed seizure, gazing, sonorous, groaning, limbs extended and stiff. Dr. Rodriguez at bedside, EEG in progress.
--- NOTE | 2024-11-29 10:03 | CM ---
Addendum entered by Janina Gould RN 11/29/24 16:31:
Email sent to To Messi Holt, Prothonotary's Office and RAY Amaral Office with 302 & 303 Forms.
Addendum entered by Janina Gould RN 11/29/24 16:14:
Met with Dr Leal; 303 forms completed for request for 303 Hearing tomorrow.
Met with patient in ICU after second robby komal called. Nurse reported restraints in place and patient sedated with Precedex. Copy of 303 Patient Rights left at bedside - nurse can hand to patient if he becomes alert and calm later today.
Discussed with Ju Bartlett, Emergency [facility] that was unable to read patient his 303 rights due to sedated status.
Spoke with KATIE Membreno (ph [phone]); request initiated for 303 Hearing for tomorrow.
CM Office received phone call from Crisis Team notifying that 303 Hearing will be 12:30pm tomorrow---> message sent to Dr Leal re; same.
Case coordination with Leslie Maldonado Network Security Engineer - Link for meeting will be sent to her email.
Plan 303 Hearing tomorrow 12:30pm using Teams Link.
Original Note:
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
Per Crisis Team; 302 placed. Per ED MD notes: suicidal thoughts expressed to mother, not taking meds.
Robby komal called this morning - 4 pt restraints, 1:1 sitter per nursing. Transfer from IMU to ICU.
Room air. Receiving IV Keppra, IV Ativan prn. Psych Consult pending.
Spoke with patient's mother Ene;
the patient has been staying with his mother since Apr 2024 in her 2nd floor apartment with 1 flight outside stairs.
He was independent in ADLs and ambulation.
The patient has no DME, prior VN.
PCP - Carlos Mojica
Pharmacy - [facility]
The mother states that her son cannot return home to her apartment due to 'bizarre behavior', he won't take his meds, he was 'freaking out' and 'running around naked', also having seizures. Mother shares that her son has oppositional defiant
personality diagnosed at age 17. She says she is 81 years old and cannot continue to have him there. The father is not present due to divorce and there are no siblings.
Mother states that the patient receives SS disability.
Mother shares that the patient was on a prior 302 at [facility] in 2020 and staying there for about a week.
Arleen states that [facility] initially tried to place patient in a program for housing with roommate however the patient had seizures on day of interview appointment so not placed. Then [facility] Housing Failed as he refused to go to shelter.
Mother says [facility] is still following him however.
Plan TBD.
[2024-11-29] MEDS: PRECEDEX 100 IV ×2 (10:14→16:22)
--- NOTE | 2024-11-29 10:15 | PTCARENOTE ---
New IV site started LFA #20. IVF and Precedex started per order. Labs drawn.
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
--- NOTE | 2024-11-29 10:25 | PTCARENOTE ---
Witnessed seizure with right eye gaze, groaning, snoring, limbs extended and stiff, approximately 30 seconds. No post ictal activity noted. 2mg Ativan given IV.
--- NOTE | 2024-11-29 10:48 | PTCARENOTE ---
Assumed care of patient at 07:00. Patient initially cooperative with taking oral meds, IV meds and giving urine sample. 1:1 supervision by PCT. Patient then became very agitated at approximately 0900, OOB took off gown, ripped out IV and threaten to
leave. He also began cursing at staff. He threatened to throw things at staff. Multiple attempts to deescalate failed and a robby sauceda was called. Patient was eventually placed in bed by staff and 4 point soft restraints applied. Left restraint
became loose; this nurse attempted to tighten. Patient then pulled back his left arm trapping the 3rd finger of this nurse between the metal part of the bed and the restraint. This nurse was asked to get ativan as patient began to have a seizure.
Ativan 2mg obtained from xis and order changed by physician to IM as patient did not have IV access at that time. When this nurse brought med in to administer, Dr Menchaca asked to hold until after EEG. Patient initially calm at this point; however
he again threatened to leave and refused EEG. He stated he knows his body and that he did not have a seizure. He began to yell out and again became agitated. 4 point locked restraints then placed on patient and he was transferred to ICU accompanied
by security, the robby sauceda team and ELECTROMECHANICAL TECHNICIAN.This nurse gave report to Kristi.
--- NOTE | 2024-11-29 10:49 | EEG.RPT ---
Electroencephalogram Report
Recording
Date of EE11/29/24
Done with Video Recording: Yes
Patient Status: Inpatient
Recording Conditions: Awake, Moving and Combative
Hyperventilation Performed: No
Photic Stimulation Performed: No
Report
Clinical Background:�He is a 49 year old man with lifelong epilepsy being evaluated emergently after a witnessed seizure - slumped over, unresponsive, arms tense, facial movements
Introduction: A stat bedside EEG was done in the ICU using International 10-20 electrode placement protocol.
Background: In the most alert state, there is generalized beta activity. There is spontaneous variability and reactivity.�
Sleep: No sleep is seen.�
Focal/epileptiform: frequent sharp waves seen at T2
Seizures: the seizure consists of generalized rhythmic 3 hz delta lasting ~30 seconds. tech notes patient yawning. afterwards there is behavior change, agitation.
Photic stimulation: resulted in normal driving response. There was no photo myogenic or photoparoxysmal response.�
Impression: epileptogenicity of the right temporal region, seizure captured.
--- NOTE | 2024-11-29 11:30 | PTCARENOTE ---
Patient has been calm on Precedex. Trial locked restraints off. Incontinent of urine after pulling off condom catheter. Complete cares given, CHG cloth bath and complete linen change. Patient severely agitated, attempting to grab staff, spit at
staff, sitting up in bed and kicking the end of the bed. Precedex increased temporarily. Code purple called. Locked restraints x 4 limbs replaced. Patient had another witnessed seizure approx 30 seconds. Another dose of IV prn Ativan given per
order. No post ictal state.
[2024-11-29] MEDS: TRILEPTAL PO (11:45)
--- NOTE | 2024-11-29 12:00 | PTCARENOTE ---
Aside from neurological and psychological changes noted, no change in patient's physical assessment.
[2024-11-29 12:36] LABS: TSH 0.99 uIU/ml (0.47-4.68)
[2024-11-29 12:56] LABS: Vitamin B12 501 pg/ml (239-931)
--- NOTE | 2024-11-29 13:53 | CON.INTV ---
Consultation
Consultation Request
Date/Time Consultation Requested: 11/29/2024
Date/Time Consultation Performed: 11/29/2024
Requesting Provider: Dayron Menchaca
Performing Provider: Lalitha Pike
Reason for Consultation: Agitation
Medical History
-
Chief Complaint: Suicidal ideation
History of Present Illness:
Patient is a 41-year-old gentleman who was brought to the hospital due to suicidal ideations that he expressed to his mother. Reportedly patient has history of seizure and has not been taking his medications at home. EMS brought to the him to the
hospital. He had episodes of teeth grinding and some clonic activity in the ER which were concerning for seizure. Patient had 302 petition filed by mother, supported by emergency room. Reported history of trauma as well as seizure disorder
in time as well as in childhood. Also reported history of bipolar disorder. Reported prior history of alcohol abuse, sober since 2 years. Patient was admitted to the hospitalist service for further workup and management
11/29, patient became very agitated this morning he pulled out his IV he had threatening behavior towards the staff and was subsequently transferred to ICU restrained in view of extreme agitation. Pants Maker consult was requested for further input.
Past Medical History: Reports Other
Additional Past Medical History:
see HPI
Past Surgical History: Reports None
Social History
Tobacco: Smoker
Alcohol: None
Drug: Former User
Family History
Family History: Not pertinent
Allergies / Home Medications
Allergies / Home Medications
Allergies
Allergy/AdvReac Type Severity Reaction Status Date / Time
divalproex sodium (From Allergy pt states Verified 11/28/24 18:20
Depakote) he loses
his hair
Home Medications
�Medication �Instructions �Recorded �Confirmed �Last Taken �Type
brivaracetam 100 mg tablet 150 mg PO BID@0800,2000 Seizures 05/29/22 11/28/24 04/14/23 08:00 History
(Briviact)
gabapentin 400 mg capsule 800 mg PO BID Neurological 06/11/24 11/28/24 Unknown History
Condition
topiramate 50 mg tablet 100 mg PO BID Seizures 06/11/24 11/28/24 Unknown History
clonazepam 1 mg tablet 1 mg PO BID 11/28/24 11/28/24 Unknown History
Review of Systems
-
Unable to Obtain full review of systems at this time due to: Other (Unobtainable due to patient's mental status)
Vitals / Labs / Diagnostic Testing
Vital Signs
Temp Pulse Resp BP Pulse Ox
98.1 F 57 14 104/67 99
11/29/24 12:00 11/29/24 13:00 11/29/24 13:00 11/29/24 13:00 11/29/24 13:00
Lab Data
11/28/24 18:21
Diagnostic Testing:
Physical Exam
-
HEENT: Normocephalic
Cardiovascular: S1/S2
Respiratory: Clear and Non-Labored Respirations
GI: Soft and Non Distended
Neurology: Awake and Alert
Skin: Warm
General: Comfortable
Assessment
-
#1. Extreme agitation, aggressive behavior towards staff
- Patient placed in 4-point restraints
- As needed IV Ativan or p.o. clonazepam depending on ability to take p.o.
- Start Precedex infusion and titrate as needed
- Start end-tidal CO2 monitoring to evaluate for any respiratory depression
- Psychiatry and neurology service on case
- Restraints were removed in the ICU when patient appeared more calm, he became agitated and aggressive again and a code purple had to be called, patient placed back in restraints
- Urine tox positive for marijuana and benzodiazepine
#2. Seizure disorder with episodes of teeth grinding and gaze deviation
- Neurology service on case
- EEG
- Elevated CK likely related to seizures. Prolactin also elevated
- Reported noncompliance with antiseizure medications
- Medications currently being readjusted per neurology service
- Continue one-to-one monitoring in the ICU
- Patient at risk of needing intubation for airway protection depending upon his mental status
- As needed Ativan for breakthrough seizures
- CBC, CMP, renal and liver function essentially unremarkable.
#3. ? Underlying psychiatric disorder with reported suicidal ideation
- During my evaluation patient was either very agitated or sedated, unable to obtain additional information
- Psychiatry service on case, input appreciated
Other medical diagnoses:
- History of substance abuse, urine drug screen positive for marijuana
- History of smoking
- History of alcohol use disorder, reportedly sober since October 2022
DVT prophylaxis, subcu Lovenox
Patient was emergently evaluated again during Code purple.
Critical Care time 65 mins -- The patient is admitted for acute critical illness for the treatment of vital organ failure and/or prevention of further life-threatening conditions. Total care includes time spent in review of history, physical exam,
medications, hemodynamic/ventilator parameters, laboratory data, imaging and discussion with house staff, pharmacy, respiratory therapy, neurosurgeon, and nursing.
[2024-11-29 14:36] LABS: Blood Urea Nitrogen 13 mg/dl (9-20); Calcium 9.3 mg/dl (8.4-10.2); Carbon Dioxide 19 mmol/L (22-30); Chloride 111 mmol/L (98-107); Creatine Phosphokinase 765 U/L (55-170); Estimated Creatinine Clearance > 125 ml/min; Glucose 98 mg/dl (70-99); Potassium 4.5 mmol/L (3.5-5.1); Sodium 138 mmol/L (135-145); eGFR > 60.00
[2024-11-29] MEDS: NSS (PRESERVATIVE FREE) 2 ML IV (15:51)
--- NOTE | 2024-11-29 16:50 | PTCARENOTE ---
Addendum entered by Blanche Engle RN 11/29/24 18:29:
Patient physical assessment otherwise unchanged. When awake, occasional episodes of agitation and restlessness, foul language.
Original Note:
At 1551 patient noted apneic on CM and witnessed to have a seizure of approx 30 seconds with same previous symptoms of snoring, right eye gaze and extremity stiffness. 2mg Ativan given prn per order. At 1647 another seizure with the same symptoms
witnessed. During these times, patient does not respond. Marlene Pike and Jennifer notified of 2 seizures within one hour. New orders received from Dr. Rodriguez for Vimpat. Patient noted to be SB 47-51 BPM. Precedex gtt titrated for adequate sedation and to keep
HR > 50 BPM. BP stable.
[2024-11-29] MEDS: LOVENOX 40 MG SC (17:12)
[2024-11-29] MEDS: VIMPAT 400 MG IV (17:33)
--- NOTE | 2024-11-29 19:00 | PTCARENOTE ---
Report given verbally to oncoming gianna, Ian BAI. Questions answered.
[2024-11-29] MEDS: NEURONTIN 400 MG PO (20:57)
[2024-11-29] MEDS: TRILEPTAL 300 MG PO (20:58)
--- NOTE | 2024-11-29 21:00 | PTCARENOTE ---
Resumed care of pt this evening. Received pt on precedex gtt infusing via left peripheral IV site. 1:1 sitter in room w/ patient. Pt in locked 4 point restraints. Pt currently asleep. No seizure activity noted by this RN.
--- NOTE | 2024-11-29 21:20 | PTCARENOTE ---
Pt woke up during assessment and could state name and date of for medication administration. Pt agreeable to taking meds.
[2024-11-30] VITALS (41 sets, daily range): BP systolic 0–124; BP diastolic 45–83
--- NOTE | 2024-11-30 00:15 | PTCARENOTE ---
Pt refusing temperature checks at this time.
[2024-11-30] MEDS: PRECEDEX 100 IV ×2 (03:07→12:21)
[2024-11-30] MEDS: NSS 1000 IV ×2 (05:03→19:15)
[2024-11-30 06:01] LABS: Blood Urea Nitrogen 16 mg/dl (9-20); Calcium 8.9 mg/dl (8.4-10.2); Carbon Dioxide 19 mmol/L (22-30); Chloride 114 mmol/L (98-107); Estimated Creatinine Clearance 110 ml/min; Glucose 86 mg/dl (70-99); Magnesium 1.6 mg/dl (1.6-2.3); Potassium 4.5 mmol/L (3.5-5.1); Sodium 139 mmol/L (135-145); eGFR > 60.00
[2024-11-30 06:59] LABS: Folate 14.1 ng/ml (2.76-20)
[2024-11-30] MEDS: KLONOPIN 1 MG PO ×2 (07:42→19:17)
[2024-11-30] MEDS: BRIVIACT 150 MG PO ×2 (07:42→19:17)
[2024-11-30] MEDS: NEURONTIN 400 MG PO ×2 (07:42→19:16)
[2024-11-30] MEDS: VIMPAT 200 MG IV ×2 (07:43→19:19)
[2024-11-30] MEDS: TRILEPTAL 300 MG PO (07:43)
[2024-11-30] MEDS: ATIVAN 2 MG IV ×3 (07:53→18:14)
[2024-11-30] MEDS: NSS (PRESERVATIVE FREE) 1 ML IV ×3 (07:53→18:16)
[2024-11-30] MEDS: KLONOPIN 0.5 MG PO ×3 (08:13→18:31)
[2024-11-30] MEDS: MAGNESIUM SULFATE 50 IV (09:20)
--- NOTE | 2024-11-30 10:12 | W.PN.HOSP.TC ---
Today's Communication/Plan
-
Antiseizure medicines
303 hearing today
Assessment / Plan
Assessment / Plan
49-year-old man brought in the hospital as he was expressing suicidal thoughts to his mother. Patient denies. Mom stated that patient has a history of seizures and
She does not think he takes medicines. He had seizures at home. He is seen at [facility] and recently had an appointment in August. Mom called [facility] with the seizures and they stated that patient needs to go to the hospital. Patient stated
that he does not care if he . EMS was called he was brought into the ER.
He had teeth grinding and some clonic activity where ER was concern for seizures. Cerebel was used which did not work and he was admitted for EEG. 302 petition was filed by mom supported by ER.
Patient has a history of trauma and seizures in the NICU.He was discharged with phenobarbital. He had a grand mal seizure at age 7 and he has been on different medicines since then. He has been seen at [facility] and also you can. They
categorized his seizures as intractable seizures. Mom states that seizures are not managed completely with medicines and sometimes he is not compliant either. He was diagnosed with bipolar disease in 2020 and has not taken medicines for that. He
also has a vagal nerve stimulator implanted in 2013 and was changed in March 2024. This was checked at [facility] and they feel that this is working even though mom believes it does not work that well. He follows up with Dr. Huan Copeland
at [facility] and was seen last in August 2023.
Patient also has a history of drug abuse he does not use it anymore. He has a history of alcohol abuse and is sober for 2 years now. He was in a recovery house and got out in April and has been living with mom until he gets housing . She is
working with [employer] to get him housing.
Patient states that he wants to leave and go to his mom's place. States that he treats her nicely.
Pupils are equal and reactive
Cardiovascular system S1-S2 appreciated
Chest clear to auscultation
Abdomen soft and nontender
Moving all extremities.
Seen in ICU on restraints
# Tonic-clonic Movements with Teeth grinding.
Seizures on EEG
Also not sure if this is postictal psychosis
Probable breakthrough seizure secondary to noncompliance with medicines. Patient stated that he does not like Topamax however he was taking it.
Patient has a vagal nerve stimulator placed in 2013 and changed in 2023
Follows up with Dr. Huan Copeland at [facility]
Per discussion with neurology vagal nerve stimulator interrogation-notes multiple seizure activities
Neurology and psychiatry evaluation appreciated
Mom states that patient is supposed to be on 400 mg twice daily of Neurontin.
Continue Briviact, Vimpat, Klonopin, Trileptal
Per discussion with neurology it may be difficult to control his seizures completely
Transferred to ICU for 4 point restraints .
Maintain 1:1
# Marijuana use-urine drug screen positive for marijuana
# Smoker- [facility]. Smokes almost half a pack a day. Order nicotine patch
# Alcohol abuse and stopped and Sober for 2 years as of october
# H/O Drug abuse in the past per mom
# DVT prophylaxis-Lovenox
# Full code
Discussed with nursing at bedside
303 hearing today.
Anticipated Discharge: > 48 hours
Subjective/Interval History
-
Date of Service: November 30, 2024
Objective Data
-
Labs:
Laboratory Results
11/30/24
05:13
Sodium 139
Potassium 4.5
Chloride 114 H
Carbon Dioxide 19 L
BUN 16
Creatinine 0.8
Glucose 86
Calcium 8.9
Vital Signs:
Vital Signs
Temp Pulse Resp BP Pulse Ox
97.5 F 68 14 101/65 99
11/30/24 08:00 11/30/24 09:00 11/30/24 09:00 11/30/24 09:00 11/30/24 09:00
I&O
11/29/24 11/30/24 12/01/24
06:59 06:59 06:59
Intake Total 2309.0 / 2392.6 275.8 / 275.8
Output Total 150 / 150 1160 / 1160
Balance -150 / -150 1149.0 / 1232.6 275.8 / 275.8
--- NOTE | 2024-11-30 10:20 | PTCARENOTE ---
pt is awake and agitated , verbally aggressive at times , uncooperative , flight of ideas , NSR on monitor , on Precedex needing increase in dose for his agitation , he had x 2 witnessed seizures this am at 07:00 and 07:45 he was given lorazepam as
ordered , Dr Rodriguez notified seizure medications were adjusted , he continues a 1:1 observation due to his behaviors along with 4 point restraints ,' he wants to go home , he wants to sign AMA papers , he wants to go do street drugs they make him feel
better. ' He is currently refusing personal hygiene care
--- NOTE | 2024-11-30 10:23 | CM ---
303 hearing changed to 1:00PM on this date, 11/30/24.
--- NOTE | 2024-11-30 11:26 | W.PN.INTV ---
Addendum entered and electronically signed by Lalitha Pike MD 12/01/24 07:43:
12/01
Patient has been off wrist drains, off Precedex since 11/30
Patient transferring to [facility] floor with one-to-one observation, insurance rater service will sign off, please call as needed thank you
Original Note:
Today's Communication / Plan
Recommendations
- As p.o. intake improves, can DC normal saline infusion
- Release restraints as tolerated
- Await further input from psychiatry and neurology service
Assessment
-
Patient is a 41-year-old gentleman who was brought to the hospital due to suicidal ideations that he expressed to his mother. Reportedly patient has history of seizure and has not been taking his medications at home. EMS brought to the him to the
hospital. He had episodes of teeth grinding and some clonic activity in the ER which were concerning for seizure. Patient had 302 petition filed by mother, supported by emergency room. Reported history of trauma as well as seizure disorder
in time as well as in childhood. Also reported history of bipolar disorder. Reported prior history of alcohol abuse, sober since 2 years. Patient was admitted to the hospitalist service for further workup and management
11/29, patient became very agitated this morning he pulled out his IV he had threatening behavior towards the staff and was subsequently transferred to ICU restrained in view of extreme agitation. Ui Designer consult was requested for further input.
#1. Extreme agitation, aggressive behavior towards staff
- Appears calmer this morning, currently on Precedex infusing at 0.7. Patient placed in 4-point restraints, will start releasing restraints as patient continues to improve
- As needed IV Ativan or p.o. clonazepam depending on ability to take p.o.
-Continue end-tidal CO2 monitoring to evaluate for any respiratory depression
- Psychiatry and neurology service on case
- 11/29 Restraints were removed in the ICU when patient appeared more calm, he became agitated and aggressive again and a code purple had to be called, patient placed back in restraints
- Urine tox positive for marijuana and benzodiazepine
#2. Seizure disorder with episodes of teeth grinding and gaze deviation
- Neurology service on case
- 11/30, additional breakthrough seizures noted artificial breeding technician.
- EEG
- Elevated CK likely related to seizures. Prolactin also elevated
- Reported noncompliance with antiseizure medications
- Medications currently being readjusted per neurology service, IV Vimpat started 11/29.
- Continue one-to-one monitoring in the ICU
- Patient at risk of needing intubation for airway protection depending upon his mental status
- As needed Ativan for breakthrough seizures
- CBC, CMP, renal and liver function essentially unremarkable.
#3. ? Underlying psychiatric disorder with reported suicidal ideation
- During my evaluation patient was either very agitated or sedated, unable to obtain additional information
- Psychiatry service on case, input appreciated
Other medical diagnoses:
- History of substance abuse, urine drug screen positive for marijuana
- History of smoking
- History of alcohol use disorder, reportedly sober since October 2022
DVT prophylaxis, subcu Lovenox
Discussed with RN at bedside.
Critical Care time 45 mins -- The patient is admitted for acute critical illness for the treatment of vital organ failure and/or prevention of further life-threatening conditions. Total care includes time spent in review of history, physical exam,
medications, hemodynamic/ventilator parameters, laboratory data, imaging and discussion with house staff, pharmacy, respiratory therapy, nailer machine, and nursing.
Subjective Dataa
Subjective Data
Date of Service:
Date of Service: November 30, 2024
Subjective:
Patient sitting in bed, awake, in restraints. Not in any distress.
Review of Systems
Genitourinary: Other (Unable to obtain a reliable review of system)
Objective Data
Data Reviewed
Vital Signs / I&O / Oxygen:
Vital Signs
Temp Pulse Resp BP Pulse Ox
97.5 F 54 18 106/70 98
11/30/24 08:00 11/30/24 10:30 11/30/24 10:30 11/30/24 10:30 11/30/24 10:30
Intake and Output
11/29/24 11/30/24 12/01/24
06:59 06:59 06:59
Intake Total 2309.0 / 2392.6 371.9 / 371.9
Output Total 150 / 150 1160 / 1160
Balance -150 / -150 1149.0 / 1232.6 371.9 / 371.9
SaO2 98
Nasal Cannula flow liters per 2
minute
Physical Exam
General: Comfortable
HEENT: Normocephalic
Cardiovascular: S1-S2
Respiratory: Non-Labored Respirations
Neurology: Awake and Alert
Skin: Good Color
Labs/Micro/Reports
Lab Data
11/28/24 18:21
11/30/24 05:13
Microbiology
11/29/24 00:52 Nose MRSA Screen - Final
No Methicillin Resistant Staphylococcus aureus isolated.
[2024-11-30] MEDS: NICODERM TRANSDERMAL 14 MG TRANSDERM (12:26)
--- NOTE | 2024-11-30 12:28 | W.RAPID.EEG ---
Rapid EEG
-
Procedure Date: 11/28/24
Results:
Clinical Correlation / Impressions:
There are Lateralized periodic discharges (LPDs) on this record, which can be associated with underlying cerebral injury and/or hyperexcitability.
Point of Care EEG Procedure Note
Patient name: RODNEY SWEET
Medical ID: [id number]
Date of : 1975
Age: 49
Recording 1 Duration: 2024-11-28 19:18:43 - 2024-11-29 01:25:09
Recording Total Time: :: (366 minutes)
Ordering Physician: SOHAIL
Recording Technique: This EEG was obtained using a 10 lead, 8 channel circumferential rapid EEG with no parasagittal coverage.
Performed with [employer], [employer] Satisfaction Status Epilepticus Monitor, ICD-10 CP69B95
Clinical History: RODNEY SWEET is a 49 year old Prior Seizure patient undergoing EEG to screen for non-convulsive status epilepticus.
Primary Indication: Prior Seizure
Location: ED
Findings:
� LPD 1 was annotated at 7:22:46 PM
Background: The background was continuous
Report prepared by: Sascha Maher
Report generated on: Nov 30, 2024 12:25 PM RUST-4
[2024-11-30] MEDS: TRILEPTAL 600 MG PO ×2 (12:30→19:16)
--- NOTE | 2024-11-30 14:32 | PTCARENOTE ---
pt given lorazepam for increasing in agitation at 1302
--- NOTE | 2024-11-30 14:40 | W.PN.NEURO.1 ---
Today's Communication / Plan
-
would continue BRV 150 BID, Klonopin 1mg BID, gabapentin 400 BID,
this admission added Vimpat 200 BID, Trileptal 600 BID, Topamax stopped
Neuro Assessment/Plan
Assessment
Routine EEG(06/11/2024) frequent right frontal sharps and generalized right greater than left slowing.
EEG 11/29/25 T2 sharps, seizure consists of generalized rhythmic 3 hz delta lasting ~30 s better seen on the left. tech notes patient yawning
VNS interpreted
Battery 75-100%
current 1.5 auto 1.625 magnet 1.75 mA
pulse width 130 uSec
on time 30/60/60 sec
off 1.8 mins
autostim 45/day, magnet 1.17/day
would continue BRV 150 BID, Klonopin 1mg BID, gabapentin 400 BID,
this admission added Vimpat 200 BID, Trileptal 600 BID, Topamax stopped
I don't believe that he will ever be completely 100% seizure free even if he were fully compliant, but he seems to be doing well on the present regimen, says he feels great, and I'd be ok discharging him on it
Subjective/Objective
Subjective Data
Date of Service: November 30, 2024
2 seizures this am, I increased Trieptal to 600 BID
seen this afternoon, patient in restraints pending criminal court judge. wants to go home. says he feels great. initially says he will take Vimpat but doesn't want to take a new med, but later says he's interested in trying Trileptal but doesn't want to be on
Vimpat again.
Objective Data
Vital Signs
Temp Pulse Resp BP Pulse Ox
36.4 C 54 18 106/70 98
11/30/24 08:00 11/30/24 10:30 11/30/24 10:30 11/30/24 10:30 11/30/24 10:30
Lab Results
11/28/24 18:21
11/30/24 05:13
Sodium 139 mmol/L (135-145) 11/30/24 05:13
Potassium 4.5 mmol/L (3.5-5.1) 11/30/24 05:13
BUN 16 mg/dl (9-20) 11/30/24 05:13
Glucose 86 mg/dl (70-99) 11/30/24 05:13
Calcium 8.9 mg/dl (8.4-10.2) 11/30/24 05:13
Phosphorus 3.2 mg/dl (2.5-4.5) 11/28/24 18:21
Vitamin B12 501 pg/ml (239-931) 11/29/24 11:03
Ur Buprenorphine Cancelled 11/29/24 07:51
Ur Buprenorphine Negative (Negative) 11/29/24 07:51
Patient Allergies
divalproex sodium (From Depakote) Allergy (Verified 11/28/24 18:20)
pt states he loses his hair
Physical Exam
-
in restraints, restless
nonfocal
--- NOTE | 2024-11-30 14:54 | W.PN.UPDATE ---
Update Note
Progress Note Update
patient seen chart reviewed. spoke with nursing neurology and a 303 hearing held. patient remains much the same ...intermittently agitated and in and out of restraints. he is now on four anti epileptic drugs including briviact vimpat trileptal
neurontin and arguably a fifth klonopin. a 303 hearing was held which took about an hour . patient was committed to up to 20 days in patient rx. i did explain to patient that i would be ordering zyprexa 5 mg for mood lability. he said he would not
take it although in the testimony which he listened to it was explained that in my opinion he is suffering from bipolar disorder as well as the mental health consequences of a lifetime of substance abuse and uncontrolled seizure disorder. precedex
is also being prescribed by icu docs to control his outbursts. he has prns also of ativan and klonopin will follow total time at least one hour.
--- NOTE | 2024-11-30 15:33 | CM ---
Met with patient bedside for scheduled [address] Hearing via teams.
Patient in bed with restraints, cooperative during hearing.
Patients mother participated in hearing via phone and aware of the final outcome.
The bonderizer operator sent A Certification by the Court for Extended Involuntary Emergency Treatment for up to 20 days.
Copy of the Order placed on patents chart in the yellow envelope with the request for 303 paperwork.
Copy of 302, [address] order sent to MR to be scanned into the chart.
--- NOTE | 2024-11-30 15:58 | PTCARENOTE ---
pt had a hearing for 303 and he is now committed to 20 day stay as per comanagement and psychiatry . the patient is being more calm and cooperative since this afternoon , He occasionally has some verbal outburst that is usual situational but calms
down quickly . he is now off of locked restraints , he is tolerating a regular diet . I am weaning down his Precedex .
--- NOTE | 2024-11-30 16:25 | CM ---
303 hearing this afternoon. 303 Upheld.
[2024-11-30] MEDS: LOVENOX SC ×2 (17:02→17:08)
--- NOTE | 2024-11-30 18:33 | PTCARENOTE ---
pt verbally agitated , trying to get oob , Precedex off , pt states Klonopin helps him calm down , he was given and additional dose as as ordered
--- NOTE | 2024-11-30 19:36 | PTCARENOTE ---
Assumed care of pt. approx 1899.
Uncooperative, removing PIVs, oriented to situation, agrees to take PO medications at this time.
Remains out of restraints at this time, dex remains off.
1:1 Observation cont.
--- NOTE | 2024-11-30 21:50 | PTCARENOTE ---
Pt. removed all IV sites, combative stating he is all better now.
Attempts at deescalation futile, will attempt to place new site when pt. is less aggressive.
--- NOTE | 2024-11-30 23:28 | PTCARENOTE ---
Addendum entered by Moncho Garcia RN 12/01/24 00:40:
new PIV placed, Ativan given.
Original Note:
Pt. verbally combative wAmy bourneter, removing all lines/monitoring devices, refusing vital signs.
[2024-12-01] MEDS: ATIVAN 2 MG IV ×2 (00:33→05:04)
--- NOTE | 2024-12-01 03:13 | PTCARENOTE ---
Addendum entered by Moncho Garcia RN 12/01/24 05:06:
Severe restlessness and agitation persisting, PRNs given. Pt. has not slept all night, just rambling/screaming.
Original Note:
pt. remains verbally abusive to staff.
No change in assessment.
Refusing all care, removing monitors.
No seizure activity noted.
1:[address]
[2024-12-01 04:16] VITALS: BP 116/81
[2024-12-01 05:02] VITALS: BP 128/81
[2024-12-01] MEDS: KLONOPIN 1 MG PO (07:30)
[2024-12-01] MEDS: BRIVIACT 150 MG PO (07:30)
[2024-12-01] MEDS: TRILEPTAL 600 MG PO (07:37)
[2024-12-01] MEDS: NEURONTIN 400 MG PO (07:37)
[2024-12-01] MEDS: NICODERM TRANSDERMAL 14 MG TRANSDERM (07:38)
[2024-12-01] MEDS: VIMPAT 200 MG IV (08:00)
--- NOTE | 2024-12-01 08:39 | PTCARENOTE ---
patient received at 0700 1:[address] no seizure activities vSS pt downgraded to telemetry level of care
[2024-12-01] MEDS: KLONOPIN 0.5 MG PO (10:13)
--- NOTE | 2024-12-01 11:55 | PTCARENOTE ---
Addendum entered by Hoa Rojo RN 12/01/24 13:56:
not added
10:30 Earlier without any warning signs patient took off and escaped the hospital through the back exit doors by the ICU. Code Adrian was called. I ran after patinent along with hospital security staff but patient exited the parking lot. Police
was contacted patient was brought back. He was hiding in the bushes has some scratch soria on his chest. patient in ER in 4 point violent restraints with 1:[address] for patient's safety. Will be admitted back to ICU.
Phone call received from patient's mom. She was updated of regarding patient's elopement . She states that patient tried to leave hospital during previous hospitalizations . She reports that pt at his baseline 'very impulsive and has poor judgment '
Original Note:
0700 patient received. Off restraints. off Precedex. On 1:[address] for [address] safety in place. Awake and alert, cooperative, with no signs of agitation. patient denies suicidal aviations. All am medications administered per current order. Patient
verbalizing that he wants to go home. He was explained that he required to be in a hospital. Ambulates in room. Not trying to leave room, cooperative. Seen by neurologist and sisal operator, [place] [facility] [place]
--- NOTE | 2024-12-01 13:01 | W.PN.UPDATE ---
Update Note
Progress Note Update
Earlier today patient escaped the hospital through the back exit doors by the ICU. Staff ran after him but he exited the parking lot. Police was contacted patient was brought back. He was hiding in the bushes has some scratch soria on his chest.
He was seen in the ER and 4 point restraints. Admit back to ICU
--- NOTE | 2024-12-01 13:02 | W.PN.HOSP.TC ---
Today's Communication/Plan
-
Psyche placement
Assessment / Plan
Assessment / Plan
49-year-old man brought in the hospital as he was expressing suicidal thoughts to his mother. Patient denies. Mom stated that patient has a history of seizures and
She does not think he takes medicines. He had seizures at home. He is seen at [facility] and recently had an appointment in August. Mom called [facility] with the seizures and they stated that patient needs to go to the hospital. Patient stated
that he does not care if he . EMS was called he was brought into the ER.
He had teeth grinding and some clonic activity where ER was concern for seizures. Cerebel was used which did not work and he was admitted for EEG. 302 petition was filed by mom supported by ER.
Patient has a history of trauma and seizures in the NICU.He was discharged with phenobarbital. He had a grand mal seizure at age 7 and he has been on different medicines since then. He has been seen at [facility] and also you can. They
categorized his seizures as intractable seizures. Mom states that seizures are not managed completely with medicines and sometimes he is not compliant either. He was diagnosed with bipolar disease in 2020 and has not taken medicines for that. He
also has a vagal nerve stimulator implanted in 2013 and was changed in March 2024. This was checked at [facility] and they feel that this is working even though mom believes it does not work that well. He follows up with Dr. Huan Copeland
at [facility] and was seen last in August 2023.
Patient also has a history of drug abuse he does not use it anymore. He has a history of alcohol abuse and is sober for 2 years now. He was in a recovery house and got out in April and has been living with mom until he gets housing . She is
working with [facility] to get him housing.
12/01/24- Pt managed to run out through the back emergency exit door in ICU. Staff ran after him but pt managed to leave and was handcuffed and brought back to the Hospital.
Pupils are equal and reactive
Cardiovascular system S1-S2 appreciated
Chest clear to auscultation
Abdomen soft and nontender
Moving all extremities.
Minor scratch soria on the chest skin.
On restraints
# Tonic-clonic Movements with Teeth grinding.
Seizures on EEG
Also not sure if this is postictal psychosis
Probable breakthrough seizure secondary to noncompliance with medicines. Patient stated that he does not like Topamax however he was taking it.
Patient has a vagal nerve stimulator placed in 2013 and changed in 2023
Follows up with Dr. Huan Copeland at [facility]
Per discussion with neurology vagal nerve stimulator interrogation-notes multiple seizure activities
Neurology and psychiatry evaluation appreciated
Mom states that patient is supposed to be on 400 mg twice daily of Neurontin.
Continue Briviact, Vimpat, Klonopin, Trileptal.
Per discussion with neurology it may be difficult to control his seizures completely.No SZ for 24 hours
Maintain 1:1
Off Precedex
Was taken off of restraints when patient eloped.
Back on the other residents.
Pt on 303 extension.
Keep in ICU
# Marijuana use-urine drug screen positive for marijuana
# Smoker- [facility]. Smokes almost half a pack a day. Continue nicotine patch
# Alcohol abuse and stopped and Sober for 2 years as of october
# H/O Drug abuse in the past per mom
# DVT prophylaxis-Lovenox
# Full code
Discussed with nursing at bedside
Discussed with ER
D/W Airbrush Artist Photography
Spoke to mom , updated mom re pt 's elopement and plan for restraints and readmission.
Time spent over 50 min
Anticipated Discharge: > 48 hours
Subjective/Interval History
-
Date of Service: December 01, 2024
Objective Data
-
Labs:
Laboratory Results
12/01/24
10:04
WBC Pending
Hgb Pending
Hct Pending
Plt Count Pending
Sodium Pending
Potassium Pending
Chloride Pending
Carbon Dioxide Pending
BUN Pending
Creatinine Pending
Glucose Pending
Calcium Pending
Vital Signs:
Vital Signs
Temp Pulse Resp BP Pulse Ox
98.8 F 62 16 128/81 98
12/01/24 08:39 12/01/24 06:00 12/01/24 06:00 12/01/24 05:02 12/01/24 06:09
I&O
11/30/24 12/01/24 12/02/24
06:59 06:59 06:59
Intake Total 2309.0 / 2392.6 2037.8 / 2037.8 240 / 240
Output Total 1160 / 1160 1650 / 1650 600 / 600
Balance 1149.0 / 1232.6 387.8 / 387.8 -360 / -360
--- NOTE | 2024-12-01 13:21 | W.PN.NEURO.1 ---
Addendum entered and electronically signed by Romero Rodriguez MD 12/01/24 14:19:
spoke with JULIO Stallings and updated her
Original Note:
Today's Communication / Plan
-
ok to discharge to psych, facility needs to understand not to send him back if he has one little seizure
Neuro Assessment/Plan
Assessment
Routine EEG(06/11/2024) frequent right frontal sharps and generalized right greater than left slowing.
EEG 11/29/25 T2 sharps, seizure consists of generalized rhythmic 3 hz delta lasting ~30 s better seen on the left. tech notes patient yawning
VNS interpreted 11/29
Battery 75-100%
current 1.5 auto 1.625 magnet 1.75 mA
pulse width 130 uSec
on time 30/60/60 sec
off 1.8 mins
autostim 45/day, magnet 1.17/day
would continue BRV 150 BID, Klonopin 1mg BID, gabapentin 400 BID,
this admission added Vimpat 200 BID, Trileptal 600 BID, Topamax stopped
his seizures are now controlled. I don't believe that he will ever be completely 100% seizure free even if he were fully compliant, but he seems to be doing well on the present regimen, says he feels great, and I'd be ok discharging him on it
Subjective/Objective
Subjective Data
Date of Service: December 01, 2024
yesterday afternoon belly packer committed him 20 days
seen this am - no sz 24 hrs, says he feels great wants to sign ama. I suggested that he will continue to feel great as long as he keeps taking his meds
noted he eloped after I saw him
Objective Data
Vital Signs
Temp Pulse Resp BP Pulse Ox
37.1 C 62 16 128/81 98
12/01/24 08:39 12/01/24 06:00 12/01/24 06:00 12/01/24 05:02 12/01/24 06:09
Sodium 139 mmol/L (135-145) 11/30/24 05:13
Potassium 4.5 mmol/L (3.5-5.1) 11/30/24 05:13
BUN 16 mg/dl (9-20) 11/30/24 05:13
Glucose 86 mg/dl (70-99) 11/30/24 05:13
Calcium 8.9 mg/dl (8.4-10.2) 11/30/24 05:13
Phosphorus 3.2 mg/dl (2.5-4.5) 11/28/24 18:21
Vitamin B12 501 pg/ml (239-931) 11/29/24 11:03
Ur Buprenorphine Cancelled 11/29/24 07:51
Ur Buprenorphine Negative (Negative) 11/29/24 07:51
Patient Allergies
divalproex sodium (From Depakote) Allergy (Verified 12/01/24 10:55)
pt states he loses his hair
Physical Exam
-
restless/agitated verbally combative, perseverative, flighty, difficult to redirect
[2024-12-01 17:11] LABS: Topiramate (Topamax) <1.5 ug/mL (5.0-20.0)
== END 2024-12-01 15:00 | disposition left against medical advice (07) | DRG 101 ==
LOC: ICU 23:49
PROVIDERS: Nurse Practitioner Family; Nurse Practitioner Primary Care; ADMITTING PHYSICIAN Internal Medicine; ATTENDING PHYSICIAN Hospitalist; CONSULT PHYSICIAN Internal Medicine; CONSULT PHYSICIAN Psychiatry & Neurology Clinical Neurophysiology; EMERGENCY PHYSICIAN Emergency Medicine; OTHER PHYSICIAN Psychiatry & Neurology Psychiatry
DX: G40.419 Other generalized epilepsy and epileptic syndromes, intractable, without status epilepticus (principal); R45.851 Suicidal ideations; F41.9 Anxiety disorder, unspecified; F17.210 Nicotine dependence, cigarettes, uncomplicated; F31.9 Bipolar disorder, unspecified; F45.8 Other somatoform disorders; H51.8 Other specified disorders of binocular movement; F19.21 Other psychoactive substance dependence, in remission; F10.11 Alcohol abuse, in remission; H55.89 Other irregular eye movements; F12.90 Cannabis use, unspecified, uncomplicated; R45.1 Restlessness and agitation; R05.9 Cough, unspecified; Z78.1 Physical restraint status; Z91.148 Patient's other noncompliance with medication regimen for other reason
CPT/HCPCS: 71045; 80048; 80053; 80143; 80179; 80201; 80306; 80307; 82077; 82550; 82607; 82746; 83605; 83735; 84100; 84146; 84443; 85027; 87070; 93005; 95816; 96372; 96374; 96375; 99285; 99406; C9254

== ENCOUNTER 2024-12-01 15:02 | Inpatient (IN) | payer MEDICARE, OTHER, SELFPAY ==
[2024-12-01] VITALS (7 sets, daily range): BP systolic 115–130; BP diastolic 73–106; BMI 21.5
--- NOTE | 2024-12-01 11:03 | ED.GENMED ---
History of Present Illness
General
Chief Complaint: Crisis Evaluation
Source: patient and records
Time Seen by Provider: 12/01/24 10:56
History of Present Illness
History of Present Illness:
This patient is a 49-year-old male who was recently admitted to the hospital with repeated/uncontrolled seizure disorder associated with suicidal ideation for which a 302 was upheld. He ran out of the hospital and was captured by police and brought
to the emergency department. Patient is in handcuffs with police at bedside. He repeatedly states that he just wants to go home. He denies any physical complaints.
Past History
Past History
ED Past Medical History: Seizures and Other (Seizure disorder with frequent breakthrough seizures, polysubstance drug use)
ED Past Surgical History: Other (Brain stimulator for seizure disorder)
Social History
Tobacco: Smoker
Alcohol: Former
Drug: Former user and Marijuana
Personal: Single
Living: with family
Employment: Not employed
Family History
Family History: Other (Noncontributory)
Phy Exam
Physical Exam
Physical Exam:
GENERAL: Alert , in no apparent distress
EYE: pupils equal and reactive
NECK: Supple, no significant adenopathy.
ENT: o/p clr, mmm.
CARDIAC: Regular rate and rhythm . Vagal stimulator palpated without associated tenderness or redness in left anterior chest wall area
LUNGS: Clear breath sounds bilaterally, no acute respiratory distress, no wheezes/rales/rhonchi
ABDOMEN: Soft, without focal tenderness, no r/g, no cvat
NEUROLOGICAL: Alert and oriented, grossly nonfocal
SKIN: Warm and dry, skin intact.
MUSCULOSKELETAL: No edema, well perfused.
PSYCH: Repeatedly states I just want to go home, answers questions appropriately
Course
Orders/Labs/Results
Orders:
Orders
12/01/24 Lunch
Regular
At Your Request: Full Participation
Does patient need a safe tray?: Yes
12/01/24 11:07
One to One Observation - Suicide/Violent [1:1 Observation - Suicide/ Violent Behavior] As Directed
PSYCHIATRY CONSULT Urgent
Consulting Provider: Messi George
Was physician already notified: Yes
Reason for consult: 303
12/01/24 11:26
1:1 Observation - Suicide/ Violent Behavior As Directed
Restraints - Violent As Directed
Restraint Type-: Locked-4 point/4 rails
Apply From (date): 12/01/24
Apply from (time): 11:26
Remove (date): 12/01/24
Remove (time): 15:26
12/01/24 14:37
Admit/Transfer Patient As Directed
Co-Sign Provider:
Level of Care: Inpatient admission
Assign to:: ICU
Physician / Group: Hospitalist
Diagnosis: Seizures, Agitation
Reason for Hospitalization: Seizures, Agitation
Expected length of stay greater than two midnights?: Yes
ELOS- Estimated Length of Stay in days: 2
I certify the patient meets the requirements for IP care: Yes
PRN Pain Medication Management As Directed
May give lesser potent ordered pain med per pt: Yes
preference::
Protocol:: Medication orders for pain may be administered in a
manner that supports deferring to patient preference
when the pt is:
- Requesting an ordered lesser potent pain medication.
Least to most potent pain medications are defined
as: acetaminophen < NSAID < tramadol < opioids
(morphine, oxycodone, hydromorphone).
- Requesting a lesser dose of the same medication IF
ORDERED.
- Requesting a less intrusive route of administration
if both routes are prescribed by the provider (PO <
IV).
12/01/24 15:01
Code Status As Directed
Resuscitation Status: Full Code
12/01/24 15:53
Acetaminophen [Tylenol] 650 mg PO Q6HPRN PRN
Bisacodyl [Dulcolax] 10 mg RECTAL [id number] PRN
Clonazepam [Klonopin] 0.5 mg PO Q6HPRN PRN
Docusate W/Senna [Senokot-S] 1 tablet PO BIDPRN PRN
Lorazepam [Ativan] 1 mg IV Q4HPRN PRN
Polyethylene Glycol Powder [Miralax] 17 grams PO DAILYPRN PRN
12/01/24 15:53
1:1 Observation - Suicide/ Violent Behavior As Directed
Millinery Worker Consult Routine
Consulting Provider: Lalitha Pike
Was physician already notified: Yes
Reason for consult: On leather restraints
NEUROLOGY CONSULT Routine
Consulting Provider: Romero Rodriguez
Was physician already notified: Yes
Reason for consult: seizures
Activity As Directed
Activity Level: Encourage Progressive Amb
Vital Signs As Directed
Frequency: Per unit guidelines
DX Deep Vein Thrombosis Video Routine
12/01/24 18:00
Enoxaparin Sodium [Lovenox] 40 mg SC QPM
12/01/24 20:00
Brivaracetam [Briviact] 150 mg PO BID@0800,2000
Clonazepam [Klonopin] 1 mg PO BID
Gabapentin [Neurontin] 400 mg PO BID
Lacosamide [Vimpat] 200 mg IV Q12H
Oxcarbazepine [Trileptal] 600 mg PO BID
12/01/24 22:00
Olanzapine [Zyprexa] 5 mg PO HS
Sennosides [Senokot] 8.6 mg PO HS
12/02/24 04:46
Basic Metabolic Panel IN AM
Complete Blood Count/No Diff IN AM
Magnesium IN AM
12/02/24 08:00
Nicotine [Nicoderm Transdermal] 14 mg TRANSDERM DAILY
Polyethylene Glycol Powder [Miralax] 17 grams PO DAILY
Vital Signs
Initial and Last Documented VS:
Initial Vital Signs
Temp Pulse Resp BP Pulse Ox
98.6 F 107 19 130/89 96
12/01/24 10:55 12/01/24 10:55 12/01/24 10:55 12/01/24 10:55 12/01/24 10:55
Last Documented Vital Signs
Temp Pulse Resp BP Pulse Ox
97.7 F 57 20 126/74 99
12/10/24 07:00 12/10/24 07:00 12/10/24 07:00 12/10/24 07:00 12/10/24 07:00
*Critical Care Note
Total Time (30-74mins, 75-104mins- exclusive of procedures): Not Applicable
Update Note
Update Note:
Patient presents to the Emergency Department with _leaving hospital AGAINST MEDICAL ADVICE
Number and Complexity of Problems Addressed at the Encounter
� Chronic conditions affecting care:
� Acute Exacerbation and/or Progression of Chronic Illness:
� Differential Diagnosis includes: But not limited to suicidal ideation, agitation, recurrent seizure, etc. etc.
Amount and/or Complexity of Data to be Reviewed and Analyzed
� I performed an independent evaluation of and my interpretation is:
EKG:
CT:
Xrays:
Laboratory Studies:
Other:
� Review of other/old records reveals:
� Clinical information was obtained by an independent historian:
� Prescriptions/Medications Considered but not given:
� Further testing considered but not performed:
Risk of Complications and/or Morbidity or Mortality of Patient Management
� Social determinants of health affecting care:
� Discussion with other providers (PCP, Hospitalists, Consultants, etc):
� Escalation of care including admission/observation vs risk of discharge considered: 11:27 AM I have reached out to hospitalist and ICU doctors awaiting to hear back. I put in a consult for psychiatry. A one-to-one and leather
restraints have been ordered given patient's flight risk. The ICU nurse that was watching him upstairs is now here providing that one-to-one she describes patient was walking around in the room in the ICU before he fled. Police will stay here
while we transfer from handcuffs to leather restraints. I did make clear to the patient reasons for these restraints and his 303 status.
ED Attending Note
-
Portions of this chart may have been created with voice recognition software.� Occasional wrong word or��sound alike� substitutions may have occurred due to the inherent limitations of voice recognition software.
Discharge Plan
Departure
Patient Disposition: Admit
Date of Disposition: 12/01/24
Time of Disposition: 12:54
Admit to: ICU
Presentation/result/management discussed w/ accepting MD/DO: Hospitalist
Discharge Problem:
Seizure, Suicidal ideation
Interventions
Interventions:
*General Assessment Last Done: 12/01/24 10:55
*Neglect/Abuse Screening Last Done: 12/01/24 10:55
*ED- Fall Risk Assessment Last Done: 12/01/24 10:55
*Nursing Disposition Last Done: 12/01/24 15:55
ED-Psychological Assessment Last Done: 12/01/24 11:10
Discharge Date and Time
Discharge Date/Time: 12/01/24 16:13
--- NOTE | 2024-12-01 15:00 | W.PN.UPDATE ---
Update Note
Progress Note Update
Admit/DC note dictation- [id number]
--- NOTE | 2024-12-01 15:34 | CM ---
Reviewed the chart notes. Patient eloped from ICU today. Patient had a 303 hearing yesterday and the 303 was upheld for up to 20 days inpatient treatment. Prior to hospitalization patient resided with his mother in a second floor apartment with a
flight of steps to enter. Per notes, no SNF or DME in past, but did have VN in past. CM continues to be available to patient/family and is monitoring medical plan for needs at discharge.
Plan: Admit back to ICU.
--- NOTE | 2024-12-01 15:49 | W.PN.INTV ---
Today's Communication / Plan
Recommendations
- Continue 1:1
- Precedex infusion if worsening agitation noted
Assessment
-
Patient is a 41-year-old gentleman who was brought to the hospital due to suicidal ideations that he expressed to his mother. Reportedly patient has history of seizure and has not been taking his medications at home. EMS brought to the him to the
hospital. He had episodes of teeth grinding and some clonic activity in the ER which were concerning for seizure. Patient had 302 petition filed by mother, supported by emergency room. Reported history of trauma as well as seizure disorder
in time as well as in childhood. Also reported history of bipolar disorder. Reported prior history of alcohol abuse, sober since 2 years. Patient was admitted to the hospitalist service for further workup and management
11/29, patient became very agitated this morning he pulled out his IV he had threatening behavior towards the staff and was subsequently transferred to ICU restrained in view of extreme agitation. Pinball Machine Repairer consult was requested for further input.
12/01. Patient had improved was off restraints, off Precedex infusion for almost 24 hours. He was scheduled to be transferred out of the ICU. He subsequently eloped and was found outside the hospital brought by security back to ICU. He had to be
placed in leather restraint which prompted readmission to ICU. Pinball Machine Repairer consult was requested for further input.
#1. Extreme agitation, aggressive behavior towards staff
-Patient was calm this morning, off restraints, off Precedex infusion, subsequently eloped. Readmitted on 4 point restraints.
-Continue current medications. One-to-one observation
-As needed IV Ativan or p.o. clonazepam depending on ability to take p.o.
-Psychiatry and neurology service on case
-11/29 Restraints were removed in the ICU when patient appeared more calm, he became agitated and aggressive again and a code purple had to be called, patient placed back in restraints
-Urine tox positive for marijuana and benzodiazepine
-If further agitation noted, will consider Precedex infusion
#2. Seizure disorder with episodes of teeth grinding and gaze deviation
- Neurology service on case
- 11/30, additional breakthrough seizures noted early childhood associate.
- Medications currently being readjusted per neurology service
- Per neurology service, patient unlikely to be completely seizure-free. Most episodes appear to be partial seizures.
- As needed Ativan for breakthrough seizures
- CBC, CMP, renal and liver function essentially unremarkable.
#3. ? Underlying psychiatric disorder with reported suicidal ideation
-Currently status 303. Psychiatry service on case
Other medical diagnoses:
- History of substance abuse, urine drug screen positive for marijuana
- History of smoking
- History of alcohol use disorder, reportedly sober since October 2022
DVT prophylaxis, subcu Lovenox
Discussed with RN at bedside.
Critical Care time 45 mins -- The patient is admitted for acute critical illness for the treatment of vital organ failure and/or prevention of further life-threatening conditions. Total care includes time spent in review of history, physical exam,
medications, hemodynamic/ventilator parameters, laboratory data, imaging and discussion with house staff, pharmacy, respiratory therapy, floral arranger, and nursing.
Subjective Dataa
Subjective Data
Date of Service:
Date of Service: December 01, 2024
Objective Data
Data Reviewed
Vital Signs / I&O / Oxygen:
Vital Signs
Temp Pulse Resp BP Pulse Ox
98.6 F 78 19 130/106 96
12/01/24 10:55 12/01/24 15:31 12/01/24 14:30 12/01/24 15:00 12/01/24 10:55
SaO2 96
--- NOTE | 2024-12-01 16:21 | W.PN.UPDATE ---
Addendum entered and electronically signed by Messi George MD 12/01/24 16:39:
Became highly agitated, trying to get out of bed despite 4 pt. restraints and not responsive to verbal interventions. Ativan 2mg. IV stat ordered and given by nurse in my presence.
Original Note:
Update Note
Progress Note Update
49 y/o man with history of seizure disorder since childhood who has had behavioral problems since childhood and drug abuse since age 17. Was apparently diagnosed with bipolar disorder at [facility]. He had made suicidal statements
to [facility] rifle case repairer and is now on 303 Commitment. While there were concerns about adding psychiatric medications to his four antiepileptics, Dr. Leal suggested this yesterday and it was ordered by his hospitalist today with first dose for
tonight.
When I came to the room he was being returned from an elopement from the hospital. Presents as disinhibited and playful but quickly became irritable. He wants to go home and soon after I left the room was screaming, cursing and saying he wants to
go home. While he stopped drinking while on probation, unclear if he plans to resume despite knowing that alcohol use can precipitate a seizure.
It is quite possible that he has a bipolar spectrum disorder and I agree with beginning Zyprexa. May need to give PRN dose as well.
He has been medically cleared for transfer to a psychiatric hospital as he has been seizure-free.
[2024-12-01] MEDS: ATIVAN 2 MG IV (16:30)
[2024-12-01] MEDS: LOVENOX SC (17:36)
[2024-12-01] MEDS: NSS (PRESERVATIVE FREE) 1 ML IV (17:37)
[2024-12-01] MEDS: KLONOPIN 0.5 MG PO (17:45)
[2024-12-01] MEDS: NEURONTIN 400 MG PO (19:12)
[2024-12-01] MEDS: BRIVIACT 150 MG PO (19:13)
[2024-12-01] MEDS: KLONOPIN 1 MG PO (19:14)
[2024-12-01] MEDS: VIMPAT 200 MG IV (19:37)
[2024-12-01] MEDS: TRILEPTAL 600 MG PO (19:37)
--- NOTE | 2024-12-01 20:00 | PTCARENOTE ---
Received pt. at 1900. Pt. currently in bed. Restless and talking incessantly. Denies pain/discomfort. Afebrile. Heart rhythm is sinus. Blood pressure normotensive. PO diet, good appetite. Voiding in urinal. Skin as documented. Discussed plan of
care. Vital signs stable at this time.
[2024-12-01] MEDS: SENOKOT PO (21:08)
[2024-12-01] MEDS: ZYPREXA 5 MG PO (21:37)
[2024-12-02] VITALS (11 sets, daily range): BP systolic 102–139; BP diastolic 68–89
--- NOTE | 2024-12-02 | PTCARENOTE ---
Patient resting intermittently. When awake, talks about wanting to leave hospital. Able to verbally redirect. Vital signs stable at this time.
--- NOTE | 2024-12-02 05:00 | PTCARENOTE ---
Pt. assessment remains unchanged, Sleeping intermittently. When awake, talks about wanting to escape hospital. Verbally redirected. AM labs drawn. Vital signs stable at this time.
[2024-12-02 05:03] LABS: Hematocrit 43.6 % (39.0-52.0); Hemoglobin 15.4 g/dL (13.0-18.0); Mean Corp Hgb Conc. 35.3 g/dL (33.0-37.0); Mean Corpuscular Hgb 31.6 pg (27.0-31.0); Mean Corpuscular Volume 89.3 fL (80.0-94.0); Mean Platelet Volume 8.9 fL (7.4-10.4); Platelet Count 191 10^3/uL (130-400); Red Blood Cell Count 4.88 10^6/uL (4.70-6.10); Red Cell Dist. Width 12.1 % (11.5-14.5); White Blood Cell Count 7.8 10^3/uL (4.8-10.8)
[2024-12-02 05:29] LABS: Blood Urea Nitrogen 11 mg/dl (9-20); Calcium 9.3 mg/dl (8.4-10.2); Carbon Dioxide 26 mmol/L (22-30); Chloride 109 mmol/L (98-107); Estimated Creatinine Clearance 112 ml/min; Glucose 97 mg/dl (70-99); Magnesium 1.8 mg/dl (1.6-2.3); Potassium 4.2 mmol/L (3.5-5.1); Sodium 141 mmol/L (135-145); eGFR > 60.00
[2024-12-02] MEDS: BRIVIACT 150 MG PO ×2 (07:00→18:55)
[2024-12-02] MEDS: NICODERM TRANSDERMAL 14 MG TRANSDERM (07:01)
[2024-12-02] MEDS: TRILEPTAL 600 MG PO ×2 (07:01→18:56)
[2024-12-02] MEDS: NEURONTIN 400 MG PO ×2 (07:01→18:55)
[2024-12-02] MEDS: MIRALAX PO (07:02)
[2024-12-02] MEDS: VIMPAT 200 MG IV ×2 (07:02→18:56)
[2024-12-02] MEDS: KLONOPIN 1 MG PO ×2 (07:14→18:55)
--- NOTE | 2024-12-02 07:18 | PTCARENOTE ---
0700; assumed care. Patient in bed in. Patient in locked four-point restraints. Patient awake + alert +oriented x 3; Pleasant, cooperative, non-violent , however verbalizing that as soon as he can he well ' try to escape hospital. All I want to do
' smoke and do drugs. If I will be sent to psychiatric hospital I will escape from their just like I did before ' All medications administered. No seizure activities noted. HOB elevated
--- NOTE | 2024-12-02 09:01 | PTCARENOTE ---
07:53 Violent x 4 point Restraints off. Patient not violent over night. Has poor judgment, very impulsive; Violent Restraints d/c. 07:53 new order for Non-Violent restraints wrist b/l and [address] for protection .
[2024-12-02] MEDS: ATIVAN 1 MG IV ×2 (09:21→14:13)
--- NOTE | 2024-12-02 09:32 | W.PN.INTV ---
Today's Communication / Plan
Recommendations
- As needed Ativan/Precedex as needed
- 4 point restraint, 1:1 watch
- Await further neurology/psychiatry input
Assessment
-
Patient is a 41-year-old gentleman who was brought to the hospital due to suicidal ideations that he expressed to his mother. Reportedly patient has history of seizure and has not been taking his medications at home. EMS brought to the him to the
hospital. He had episodes of teeth grinding and some clonic activity in the ER which were concerning for seizure. Patient had 302 petition filed by mother, supported by emergency room. Reported history of trauma as well as seizure disorder
in time as well as in childhood. Also reported history of bipolar disorder. Reported prior history of alcohol abuse, sober since 2 years. Patient was admitted to the hospitalist service for further workup and management
11/29, patient became very agitated this morning he pulled out his IV he had threatening behavior towards the staff and was subsequently transferred to ICU restrained in view of extreme agitation. Derrick Worker Well Service consult was requested for further input.
12/02. Patient was calm, cooperative in the morning and leather restraints were switched to soft restraints of upper extremities only. Patient did not require any Precedex or sedating medications overnight. Later in the morning, patient managed
to free himself from the soft restraints got agitated, got out of bed tripped and fell and had a laceration in the right forehead area. Code purple was called. Patient was placed back in the bed local pressure was held for bleeding. No loss of
consciousness noted. No nausea or vomiting reported.
#1. Extreme agitation, aggressive behavior towards staff
-12/01 Patient was calm in the morning, off restraints, off Precedex infusion, subsequently eloped. Security was able to locate him outside hospital. Readmitted on 4 point restraints.
-Continue current medications. One-to-one observation
-As needed IV Ativan or p.o. clonazepam depending on ability to take p.o.
-Psychiatry and neurology service on case
-Urine tox positive for marijuana and benzodiazepine
-If further agitation noted, will consider Precedex infusion
-12/02, patient got out of soft restraints and had a fall followed by laceration in the forehead area. Back in 4 point restraints
#2. Seizure disorder with episodes of teeth grinding and gaze deviation
- Neurology service on case
- 11/30, additional breakthrough seizures noted coil connector.
- Medications currently being readjusted per neurology service
- Per neurology service, patient unlikely to be completely seizure-free. Most episodes appear to be partial seizures.
- As needed Ativan for breakthrough seizures
- CBC, CMP, renal and liver function essentially unremarkable.
- Ketamine infusion is being considered.
#3. ? Underlying psychiatric disorder with reported suicidal ideation
-Currently status 303. Psychiatry service on case
Other medical diagnoses:
- History of substance abuse, urine drug screen positive for marijuana
- History of smoking
- History of alcohol use disorder, reportedly sober since October 2022
DVT prophylaxis, subcu Lovenox
Discussed with RN at bedside.
Critical Care time 48 mins -- The patient is admitted for acute critical illness for the treatment of vital organ failure and/or prevention of further life-threatening conditions. Total care includes time spent in review of history, physical exam,
medications, hemodynamic/ventilator parameters, laboratory data, imaging and discussion with house staff, pharmacy, respiratory therapy, telephone maintainer, and nursing.
Subjective Dataa
Subjective Data
Date of Service:
Date of Service: December 02, 2024
Subjective:
Patient earlier in the morning was very calm, cooperative and was switched to soft restraints. Subsequently managed to get out of soft restraints and more agitated.
Review of Systems
Genitourinary: Other (No new symptoms reported, states that he wants to go home)
Objective Data
Data Reviewed
Vital Signs / I&O / Oxygen:
Vital Signs
Temp Pulse Resp BP Pulse Ox
98.8 F 60 22 120/83 99
12/02/24 07:35 12/02/24 06:30 12/02/24 06:30 12/02/24 06:00 12/02/24 04:00
Intake and Output
12/01/24 12/02/24 12/03/24
06:59 06:59 06:59
Intake Total 480 / 480
Output Total 1000 / 1000
Balance -520 / -520
SaO2 99
Physical Exam
General: Comfortable
HEENT: Normocephalic
Cardiovascular: S1-S2
Respiratory: Clear
GI: Soft and Non Distended
Neurology: Awake and Alert
Skin: Warm
Labs/Micro/Reports
Lab Data
12/02/24 04:46
12/02/24 04:46
[2024-12-02] MEDS: KETAMINE 53.2 MG IV (11:09)
[2024-12-02] MEDS: KETALAR 100 MG IV ×2 (11:10→18:15)
--- NOTE | 2024-12-02 11:10 | PTCARENOTE ---
Fall:
06:45 patient received in bed in Locked -Violent restrants 4 points. Patient AAO x3; Following commands, easily redirectible, Not agitated; not combative. Required no PRN medications for agitation over night. Does verbalize that ' I want to go home,
to get using drugs' 1:1 with patient at close prohimaty at all time. LOcked Restraint removed per order, pt placed in soft wrist restraints. Patient continue to present calm attitude, no sign of violence, to attemts to get out of bed and remove
restraints. Voiding in a urinal. VSS; 100 % breakfast consamption.
At 09:15 patietn in bed. B/L soft soft restaitns properly tight. Patient voided . Pateint present with calm attitude. After patient voided, I had to walk to patient bathroom in his room to empty urinal. Over few seconds patient somehow was able to
untie his wrist restains, jump out of bed during which he slide down on a floor and strike his forhead. Code Purple was called. pt got him self off floor, lacaration noticeable on pt r forehead bleeding. Patient combative, was not following
commentds escalating agitatin noted. Placed in bed by security. Locked restraints 4 point was placed back.
pt was assessed by ordnance equipment worker at bedside. Neuro check all WNL. Per order from physian laceration cleansed with NSS; steri - strips applied, covered by 4 x4; Per physican recommendation No CT head was done. Patient continue to verbilize ' I want to
go home, call my mother , I like to go go and smoke and like to use drugs , it's my life I can do what I want to do'
--- NOTE | 2024-12-02 11:28 | W.PN.NEURO.1 ---
Today's Communication / Plan
-
seizures controlled
awaiting placement
trial of ketamine while he is in ICU
Neuro Assessment/Plan
Assessment
Routine EEG(06/11/2024) frequent right frontal sharps and generalized right greater than left slowing.
EEG 11/29/25 T2 sharps, seizure consists of generalized rhythmic 3 hz delta lasting ~30 s better seen on the left. tech notes patient yawning
VNS interpreted 11/29
Battery 75-100%
current 1.5 auto 1.625 magnet 1.75 mA
pulse width 130 uSec
on time 30/60/60 sec
off 1.8 mins
autostim 45/day, magnet 1.17/day
would continue BRV 150 BID, Klonopin 1mg BID, gabapentin 400 BID,
this admission added Vimpat 200 BID, Trileptal 600 BID, Topamax stopped
his seizures are now controlled. I don't believe that he will ever be completely 100% seizure free even if he were fully compliant, but he seems to be doing well on the present regimen, says he feels great, and I'd be ok discharging him on it
He is now 303'd by ux interaction designer for 20 days. given his behaviors, requiring ICU level of care for intermittently requiring leather restraints, I spoke with Marlene Pike, Doris and Nikolai and decided to start ketamine with the hopes of neuromodulation after
it is discontinued. As we were already paying for ICU level care, I'm hoping to make the most of it while he is here; Patient is agreeable to Ketamine, given bolus 0.5 mg/kg and on infusion 0.4 mg/kg/hr, after which I saw him with Dr George and agree
that he seems calmer. In my training ketamine (for CRPS) was 5 days, but his treatment can be discontinued anytime when he no longer otherwise requires ICU care
Subjective/Objective
Subjective Data
Date of Service: December 02, 2024
no seizures 2 days
yesterday eloped 3 times
psychiatry started zyprexa
today initially out of restraints but then slid out of bed
Objective Data
Vital Signs
Temp Pulse Resp BP Pulse Ox
37.1 C 89 17 132/81 99
12/02/24 07:35 12/02/24 10:00 12/02/24 09:30 12/02/24 08:00 12/02/24 04:00
Lab Results
12/02/24 04:46
12/02/24 04:46
Sodium 141 mmol/L (135-145) 12/02/24 04:46
Potassium 4.2 mmol/L (3.5-5.1) 12/02/24 04:46
BUN 11 mg/dl (9-20) 12/02/24 04:46
Glucose 97 mg/dl (70-99) 12/02/24 04:46
Calcium 9.3 mg/dl (8.4-10.2) 12/02/24 04:46
Patient Allergies
divalproex sodium (From Depakote) Allergy (Verified 12/01/24 10:55)
pt states he loses his hair
Physical Exam
-
in leather restraints, manic
--- NOTE | 2024-12-02 11:57 | PTCARENOTE ---
Pt received from prior RN. Ox3 and impulsive, currently in 4 point neoprene restraints. Restraints are currently working well, pt is currently cooperative, mostly talking about getting out of the hospital, doing drugs, getting back into drinking and
smoking. Small laceration above pt's R eyebrow noted, measured out at 1x0.2 cm. [address] strips [address], small amount of blood oozing through, dressing replaced with pressure applied. Ketamine bolus given followed by a Ketamine gtt. Neurology in to
assess patient after Ketamine was started and he ordered the drip to be placed up to 0.4mg/kg/hr. Pt is currently more calm but not sleepy. Iv intact. This RN currently on 1:1 observation with the pt.
--- NOTE | 2024-12-02 12:18 | CM ---
Addendum entered by Nisha Barcenas 12/02/24 14:04:
Call back from [facility] - informed pt denied due to medical acuity - uncontrolled seizures.
She states per nurse review, pt must be 30 days past seizure to consider acceptance.
Will await review from additional facilities.
Original Note:
CM following re: d/c planning.
Plan is for IP psych, pt is a 303.
Discussed with psych, pt medically stable for transfer to psych.
Calls placed to [facility] and [facility]. Attempted [place] [facility] but unable to reach.
Informed [facility] and [facility] have potential beds and requested clinicals to be faxed.
CM faxed to both and awaiting determination.
--- NOTE | 2024-12-02 12:50 | W.PN.UPDATE ---
Update Note
Progress Note Update
49 y/o man on 303 Involuntary Commitment awaiting placement has history of seizures since childhood possibly related to trauma. Long history of behavioral problems. Substance abuse since teens. Has been alcohol free x 2 years becuase he was
on probation. He had made suicidal statements to his mother.
He seems to have a bipolar spectrum disorder, SHAYLA and possibly personality changes due to seizure disorder.
He has been seizure-free and is doing bed serach.
Yesterday he eloped from the hospital and was chased into [facility] and returned by police and security. Soon after I saw him he was highly agitated, trying to squirm out of 4-pt. leather restraints and was given Ativan 2 mg. iv.
Overnight, apparently was calmer and put into soft restraints. Today he escaped restraints and fell in his room causing a forehead laceration. Dr. Rodriguez is implimenting iv ketamine drip and I examined pt. during this treatment. He is more subdued
but still awake and alert. Did not remember me despite long conversation yesterday. Remains unmotivated for hospitalizaitons, wants to return to living in [place], and calls mother a liar for saying he was suicidal. Motivation to stop using
drugs low. Has hstory of poor compliance with medication as well.
Although some of the anti-epileptic drugs have mood stabilizing properties, he is not taking anything specifically for mood disorder.
Psychiatry will follow. Medically cleared for involuntary psych admission.
[2024-12-02] MEDS: KLONOPIN 0.5 MG PO (13:10)
--- NOTE | 2024-12-02 13:49 | W.PN.HOSP.TC ---
Today's Communication/Plan
-
Medically stable for discharge to inpatient psych
Assessment / Plan
Assessment / Plan
Patient was seen earlier twice today. Late documentation
49-year-old admitted with suicidal ideations and also intractable seizures. A 302 petition was filed by mom and 3 other extension done here. He left-ran away from the hospital and was brought back by the police. Today he was on restraints and
then still try to get out of bed and had a fall and had laceration of the right eyebrow area. This was after my first visit. Second time patient was seen as well denies any complaints
On examination upbeat mood
Constantly stating that he wants to go home.
Cardiovascular system S1-S2 appreciated
Chest clear to auscultation
Abdomen soft and nontender
Skin laceration with Steri-Strips about right eyebrow
# Tonic-clonic Movements with Teeth grinding.
Seizures on EEG
Also not sure if this is postictal psychosis
Probable breakthrough seizure secondary to noncompliance with medicines. Patient stated that he does not like Topamax however he was taking it. Mom Says he wasn't taking it.
Patient has a vagal nerve stimulator placed in 2013 and changed in 2023
Follows up with Dr. Huan Copeland at [place]
Per discussion with neurology vagal nerve stimulator interrogation-notes multiple seizure activities
Neurology and psychiatry evaluation appreciated
Mom states that patient is supposed to be on 400 mg twice daily of Neurontin.
Continue Briviact, Vimpat, Klonopin, Trileptal.
Per discussion with neurology it may be difficult to control his seizures completely.No SZ for 2 days
Maintain 1:1
Off Precedex
Was taken off of restraints when patient eloped.
Back on the other residents.
Pt on 303 extension.
Keep in ICU
Needs 4 point restraints now.
Ketamine infusion per neurology.
Appreciate Dr. Rodriguez speaking with Katty Bianchi, JULIO Gillespie neuro to update.
# Bipolar Disease- Psyche following. Pt appears to be Manic at this point to me.
# Marijuana use-urine drug screen positive for marijuana
# Smoker- [facility]. Smokes almost half a pack a day. Continue nicotine patch
# Alcohol abuse and stopped and Sober for 2 years as of october
# H/O Drug abuse in the past per mom
# DVT prophylaxis-Lovenox
# Full code
Discussed with nursing at bedside
Discussed with psychiatry
Discussed with steel plate printer
Discussed with neurology
2 visits today
Spoke to mom and updated re the fall and also Ketamine and plan.
She is very grateful about its care and updates.
Time more than 50 minutes
Anticipated Discharge: Within 24 hours
Subjective/Interval History
-
Date of Service: December 02, 2024
Objective Data
-
Labs:
Laboratory Results
12/02/24
04:46
WBC 7.8
Hgb 15.4
Hct 43.6
Plt Count 191
Sodium 141
Potassium 4.2
Chloride 109 H
Carbon Dioxide 26
BUN 11
Creatinine 0.8
Glucose 97
Calcium 9.3
Vital Signs:
Vital Signs
Temp Pulse Resp BP Pulse Ox
98.8 F 89 17 132/81 97
12/02/24 07:35 12/02/24 10:00 12/02/24 09:30 12/02/24 08:00 12/02/24 12:23
I&O
12/01/24 12/02/24 12/03/24
06:59 06:59 06:59
Intake Total 480 / 480 486.5 / 486.5
Output Total 1000 / 1000 1125 / 1125
Balance -520 / -520 -638.5 / -638.5
--- NOTE | 2024-12-02 16:20 | PTCARENOTE ---
Pt calm and talking appropriately w/ staff. Restraints removed - pt making no attempts to get up or pull at lines - easily re-directable. IV Ketamine infusing. Music played for pt which has calming effect.
[2024-12-02] MEDS: LOVENOX SC (17:08)
--- NOTE | 2024-12-02 20:14 | PTCARENOTE ---
Received pt from previous RN. Pt placed back into 4 pt leather restraints (see order and worklist). Pt talking about getting out of the hospital to do drugs and go to the bar. Pt impulsive and has poor judgement, able to re-direct. NSR on the
monitor. On RA, lungs clear. Ketamine gtt in place (see worklist). This RN is pt 1:1 observer. Safe environment maintained.
[2024-12-02] MEDS: ZYPREXA 5 MG PO (22:11)
[2024-12-02] MEDS: SENOKOT PO (22:18)
--- NOTE | 2024-12-02 23:59 | PTCARENOTE ---
Systems reviewed, no new changes in assessment. Restraints in place (see order and worklist). Ketamine gtt. Safe environment maintained.
[2024-12-03] VITALS (12 sets, daily range): BP systolic 105–134; BP diastolic 71–92
[2024-12-03] MEDS: KETALAR 100 MG IV (01:48)
[2024-12-03 04:56] LABS: Hematocrit 41.2 % (39.0-52.0); Hemoglobin 14.7 g/dL (13.0-18.0); Mean Corp Hgb Conc. 35.7 g/dL (33.0-37.0); Mean Corpuscular Hgb 30.8 pg (27.0-31.0); Mean Corpuscular Volume 86.4 fL (80.0-94.0); Mean Platelet Volume 8.8 fL (7.4-10.4); Platelet Count 180 10^3/uL (130-400); Red Blood Cell Count 4.77 10^6/uL (4.70-6.10); Red Cell Dist. Width 11.8 % (11.5-14.5); White Blood Cell Count 10.5 10^3/uL (4.8-10.8)
[2024-12-03 05:02] LABS: INR 1.14; PT 14.9 Sec (11.4-14.6)
[2024-12-03 05:03] LABS: APTT 31.1 Sec (23.4-35.0)
[2024-12-03 05:16] LABS: Blood Urea Nitrogen 13 mg/dl (9-20); Calcium 9.5 mg/dl (8.4-10.2); Carbon Dioxide 25 mmol/L (22-30); Chloride 105 mmol/L (98-107); Estimated Creatinine Clearance > 125 ml/min; Glucose 121 mg/dl (70-99); Magnesium 1.7 mg/dl (1.6-2.3); Potassium 4.1 mmol/L (3.5-5.1); Sodium 136 mmol/L (135-145); eGFR > 60.00
--- NOTE | 2024-12-03 05:17 | PTCARENOTE ---
Systems reviewed, no new changes in assessment. Restraints in place (see order and worklist). Pt with inappropriate comments, verbally redirected. Safe environment maintained.
[2024-12-03] MEDS: MAGNESIUM SULFATE 102 GRAMS IV (06:14)
[2024-12-03] MEDS: KLONOPIN 1 MG PO ×2 (07:48→19:04)
[2024-12-03] MEDS: BRIVIACT 150 MG PO ×2 (07:48→19:04)
[2024-12-03] MEDS: VIMPAT 200 MG IV (07:49)
[2024-12-03] MEDS: TRILEPTAL 600 MG PO ×2 (07:49→19:04)
[2024-12-03] MEDS: NICODERM TRANSDERMAL 14 MG TRANSDERM (07:49)
[2024-12-03] MEDS: NEURONTIN 400 MG PO ×2 (07:49→19:04)
[2024-12-03] MEDS: MIRALAX 17 GRAMS PO (07:49)
--- NOTE | 2024-12-03 08:20 | W.PN.INTV ---
Today's Communication / Plan
Recommendations
Wean off ketamine drip
Defer AEDs to neurology
Nicotine patch
Raise PO Zyprexa to 5 mg BID from HS
Start melatonin
Continue on 4 point provide the restraints and once off ketamine drip, depending on stability, can change to regular wrist + ankle restraints
Once medically stable he will be transferred to inpatient psych
Assessment
-
Patient is a 41-year-old gentleman who was brought to the hospital due to suicidal ideations that he expressed to his mother. Reportedly patient has history of seizure and has not been taking his medications at home. EMS brought to the him to the
hospital. He had episodes of teeth grinding and some clonic activity in the ER which were concerning for seizure. Patient had 302 petition filed by mother, supported by emergency room. Reported history of trauma as well as seizure disorder
in time as well as in childhood. Also reported history of bipolar disorder. Reported prior history of alcohol abuse, sober since 2 years. Patient was admitted to the hospitalist service for further workup and management
11/29, patient became very agitated this morning he pulled out his IV he had threatening behavior towards the staff and was subsequently transferred to ICU restrained in view of extreme agitation. Bias Cutting Machine Operator consult was requested for further input.
#1. Extreme agitation, aggressive behavior towards staff
-12/01 Patient was calm in the morning, off restraints, off Precedex infusion, subsequently eloped. Security was able to locate him outside hospital. Readmitted on 4 point restraints.
-Continue current medications. One-to-one observation
-As needed IV Ativan or p.o. clonazepam depending on ability to take p.o.
-Psychiatry and neurology service on case
-Urine tox positive for marijuana and benzodiazepine
- Patient now on ketamine gtt --> advised to the RN to wean this off as tolerated gonig forward, and then once off this then we can discuss coming off restraints
- For now, raise Zyprexa from 5 mg HS to BID, and start melatonin 10 mg HS.
-12/02, patient got out of soft restraints and had a fall followed by laceration in the forehead area. Back in 4 point restraints
#2. Seizure disorder with episodes of teeth grinding and gaze deviation
- Neurology service on case
- Additional breakthrough seizures noted inspector and unloader on 11/30/2024
- Defer AEDs to neurology
- Per neurology service, patient unlikely to be completely seizure-free. Most episodes appear to be partial seizures.
- As needed Ativan for breakthrough seizures
- CBC, CMP, renal and liver function essentially unremarkable.
- Ketamine infusion started 12/02- will wean this off today
#3. ? Underlying psychiatric disorder with reported suicidal ideation
-Currently status 303. Psychiatry service on case
- Once patient is medically cleared, he will go for involuntary psychiatric admission
Other medical diagnoses:
- History of substance abuse, urine drug screen positive for marijuana
- History of smoking
- History of alcohol use disorder, reportedly sober since October 2022
DVT prophylaxis, subcu Lovenox
Discussed with RN at bedside.
Critical care statement: A total of 36 minutes of critical care time was provided for this patient today. This includes management of unstable vital signs, evaluation of the patient at bedside, reviewing the patient's pertinent medical records
including radiographs, microbiology, laboratory evaluations, and discussion with primary team, consultants, pharmacy, nutrition, physical therapy, case management, charge nurse, critical care nursing, and respiratory therapy.
Subjective Dataa
Subjective Data
Date of Service:
Date of Service: December 03, 2024
Chief Complaint: Bias Cutting Machine Operator Follow Up
Subjective:
Pt seen and evaluated this AM. On ketamine at 0.2mcg/kg/min. Remains calm. Heart rate 69, BP 114/73 and breathing comfortably on room air. He is sleepy but does answer my questions appropriately.
Review of Systems
General: Other (Negative unless mentioned above)
Objective Data
Data Reviewed
Vital Signs / I&O / Oxygen:
Vital Signs
Temp Pulse Resp BP Pulse Ox
97.8 F 62 18 112/80 98
12/03/24 07:39 12/03/24 06:00 12/03/24 06:00 12/03/24 06:00 12/03/24 04:36
Intake and Output
12/02/24 12/03/24 12/04/24
06:59 06:59 06:59
Intake Total 480 / 480 1464.5 / 1464.5
Output Total 1000 / 1000 1325 / 1325 300 / 300
Balance -520 / -520 139.5 / 139.5 -300 / -300
SaO2 98
Physical Exam
General: Respiratory Distress (negative), Comfortable, Chills (negative) and Sweats (negative)
HEENT: Normocephalic and Anicteric
Cardiovascular: S1-S2 and Peripheral Edema (negative)
Respiratory: Clear, Wheeze (negative), Crackles (negative), Rhonchi (negative) and Non-Labored Respirations
GI: Soft, Non Distended, Non Tender and Normal Bowel Sounds
Neurology: Tremors (negative) and Other (Drowsy but easily arousable and answering questions appropriately)
Skin: Warm, Dry, Cyanosis (negative) and Jaundice (negative)
Labs/Micro/Reports
Lab Data
12/03/24 04:43
12/03/24 04:44
Laboratory Results
12/03/24
04:44
PT 14.9 H
INR 1.14
APTT 31.1
[2024-12-03] MEDS: KETALAR IV (09:57)
--- NOTE | 2024-12-03 10:22 | W.PN.HOSP.TC ---
Addendum entered and electronically signed by Dayron Menchaca MD 12/03/24 18:15:
Spoke to mom and updated.
Original Note:
Today's Communication/Plan
-
Medically stable for discharge to inpatient psych
Assessment / Plan
Assessment / Plan
49-year-old admitted with suicidal ideations and also intractable seizures. A 302 petition was filed by mom and 3 other extension done here. He left-ran away from the hospital and was brought back by the police. Today he was on restraints and
then still try to get out of bed and had a fall and had laceration of the right eyebrow area. This was after my first visit. Second time patient was seen as well denies any complaints
calmer today
Cardiovascular system S1-S2 appreciated
Chest clear to auscultation
Abdomen soft and nontender
Skin laceration with Steri-Strips above right eyebrow
# Tonic-clonic Movements with Teeth grinding.
Seizures on EEG
Also not sure if this is postictal psychosis
Probable breakthrough seizure secondary to noncompliance with medicines. Patient stated that he does not like Topamax however he was taking it. Mom Says he wasn't taking it.
Patient has a vagal nerve stimulator placed in 2013 and changed in 2023
Follows up with Dr. Huan Copeland at [facility]
Per discussion with neurology vagal nerve stimulator interrogation-notes multiple seizure activities
Neurology and psychiatry evaluation appreciated
Mom states that patient is supposed to be on 400 mg twice daily of Neurontin.
Continue Briviact, Vimpat, Klonopin, Trileptal.
Per discussion with neurology it may be difficult to control his seizures completely.No SZ for 2 days
Maintain 1:1
Off Precedex
Was taken off of restraints when patient eloped.
Pt on 303 extension.
Needs 4 point restraints now.
Ketamine infusion per neurology.
Appreciate Dr. Rodriguez speaking with Katty Bianchi NP [facility] to update.
# Bipolar Disease- Psyche following. Pt appears to be Manic at this point to me.
# Marijuana use-urine drug screen positive for marijuana
# Smoker- Sessation Counselling. Smokes almost half a pack a day. Continue nicotine patch
# Alcohol abuse and stopped and Sober for 2 years as of october
# H/O Drug abuse in the past per mom
# DVT prophylaxis-Lovenox
# Full code
Discussed with nursing at bedside
Discussed with neurology
Discussed with case management
Anticipated Discharge: Within 24 hours
Subjective/Interval History
-
Date of Service: December 03, 2024
Objective Data
-
Labs:
Laboratory Results
12/03/24 12/03/24
04:43 04:44
WBC 10.5
Hgb 14.7
Hct 41.2
Plt Count 180
PT 14.9 H
INR 1.14
APTT 31.1
Sodium 136
Potassium 4.1
Chloride 105
Carbon Dioxide 25
BUN 13
Creatinine 0.6 L
Glucose 121 H
Calcium 9.5
Vital Signs:
Vital Signs
Temp Pulse Resp BP Pulse Ox
97.8 F 77 12 134/92 100
12/03/24 07:39 12/03/24 08:00 12/03/24 08:00 12/03/24 08:00 12/03/24 08:00
I&O
12/02/24 12/03/24 12/04/24
06:59 06:59 06:59
Intake Total 480 / 480 1464.5 / 1464.5 480 / 480
Output Total 1000 / 1000 1325 / 1325 300 / 300
Balance -520 / -520 139.5 / 139.5 180 / 180
[2024-12-03] MEDS: ZYPREXA 5 MG PO (10:47)
--- NOTE | 2024-12-03 12:17 | PTCARENOTE ---
systems reviewed. pt resting, ketamine stopped at noon. maintained on 1:[address]
--- NOTE | 2024-12-03 13:07 | W.PN.NEURO.1 ---
Today's Communication / Plan
-
would continue BRV 150 BID, Klonopin 1mg BID, gabapentin 400 BID
Neuro Assessment/Plan
Assessment
Routine EEG(06/11/2024) frequent right frontal sharps and generalized right greater than left slowing.
EEG 11/29/25 T2 sharps, seizure consists of generalized rhythmic 3 hz delta lasting ~30 s better seen on the left. tech notes patient yawning
VNS interpreted 11/29:
current 1.5 auto 1.625 magnet 1.75 mA
pulse width 130 uSec
on time 30/60/60 sec
off 1.8 mins
autostim 45/day, magnet 1.17/day
his seizures are now controlled
Topamax stopped
Plan
would continue BRV 150 BID, Klonopin 1mg BID, gabapentin 400 BID
added continue newly initiated lacosamide 200 BID, Trileptal 600 BID
May D/C ketamine
Will follow as needed
Subjective/Objective
Subjective Data
Date of Service: December 03, 2024
Objective Data
Vital Signs
Temp Pulse Resp BP Pulse Ox
36.8 C 63 19 107/75 100
12/03/24 11:19 12/03/24 12:00 12/03/24 12:00 12/03/24 12:00 12/03/24 08:00
Lab Results
12/03/24 04:43
12/03/24 04:44
PT 14.9 Sec (11.4-14.6) H 12/03/24 04:44
INR 1.14 12/03/24 04:44
APTT 31.1 Sec (23.4-35.0) 12/03/24 04:44
Sodium 136 mmol/L (135-145) 12/03/24 04:44
Potassium 4.1 mmol/L (3.5-5.1) 12/03/24 04:44
BUN 13 mg/dl (9-20) 12/03/24 04:44
Glucose 121 mg/dl (70-99) H 12/03/24 04:44
Calcium 9.5 mg/dl (8.4-10.2) 12/03/24 04:44
Phosphorus 4.0 mg/dl (2.5-4.5) 12/03/24 04:44
Patient Allergies
divalproex sodium (From Depakote) Allergy (Verified 12/01/24 10:55)
pt states he loses his hair
--- NOTE | 2024-12-03 13:35 | CM ---
Addendum entered by Patrice Catherine 12/03/24 16:09:
Updated patient's mother.
Addendum entered by Patrice Catherine 12/03/24 14:02:
[facility] received referral documentation.
Original Note:
This CM had contact with [facility] ([facility] [phone] main # and [facility] [phone]) . Medical records and 302 and 303 documents faxed. They are unable to accept patient today due to their acuity.
Possibly tomorrow. Also contacted [facility], crisis unit ([phone]). Re-faxed the above records to [phone]. They were having difficulty with their fax and did not receive previously forwarded documents. They
gave CM this different fax #. Called to check if [facility] received the fax. They need to check with administration to see if they received it on their machine.
--- NOTE | 2024-12-03 16:12 | PTCARENOTE ---
pt has been resting comfortably since eating lunch. locked restraints have been removed, soft restraints in place to wrists for safety. Pt maintained on 1:[address] Otherwise no changes.
--- NOTE | 2024-12-03 16:16 | W.PN.UPDATE ---
Update Note
Progress Note Update
Pt seen, reviewed with staff. Pt sleeping this afternoon, in soft wrist restraints, no longer in 4 pt's. Reportedly better today. Taking Zyprexa 5 mg HS x 2, increased today to BID. Pt was tried on IV Ketamine this morning, unclear if
beneficial. Staff reports pt has been calmer/more cooperative today.
Imp: Unspecified Bipolar d/o; on 303 for SI
Rec: continue Zyprexa titration; continue inpatient psych placement effort
will follow
[2024-12-03] MEDS: LOVENOX 40 MG SC (17:36)
--- NOTE | 2024-12-03 18:11 | PTCARENOTE ---
pt woke up asking for his medication. was looking for his briviact. made aware that it was scheduled 8 and 8 in the hospital. pt reported feeling fine.
[2024-12-03] MEDS: VIMPAT 200 MG PO (19:04)
[2024-12-03] MEDS: SENOKOT PO (21:47)
[2024-12-03] MEDS: KLONOPIN 0.5 MG PO (21:51)
[2024-12-03] MEDS: MELATONIN PO (21:57)
--- NOTE | 2024-12-03 22:43 | PTCARENOTE ---
Uncooperative at times. Stating he has no need for restraints but also says he will run out of the hospital if possible. Restraints on. Refusing Zyprexa, inspecting medications stating ' I KNOW my drugs. You're not giving me anything I don't want'.
Safe environment and 1:1 maintained.
PRN Klonopin for agitation - see MAR. Pt self-removed nicotine patch stating 'I don't fucking want nicotine if I'm not fuckin [facility]'. Educated pt on purpose of nicotine patch as it relates to pt's current smoking habit, pt states 'If I
feel fucking sick, I'll ask for it'.
Pt stated 'Oooh when I get out here I MIGHT do something to my mom'. Pt refused to elaborate, stating 'I said I miiiiight, not that I will'. Pt denies having a plan to harm his mother.
[2024-12-04] VITALS (9 sets, daily range): BP systolic 101–135; BP diastolic 59–104; BMI 19.7
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
[2024-12-04] MEDS: VIMPAT PO (07:40)
[2024-12-04] MEDS: TRILEPTAL PO (07:40)
[2024-12-04] MEDS: KLONOPIN 1 MG PO ×2 (07:41→19:51)
[2024-12-04] MEDS: BRIVIACT 150 MG PO ×2 (07:41→19:40)
[2024-12-04] MEDS: NICODERM TRANSDERMAL TRANSDERM (07:42)
[2024-12-04] MEDS: NEURONTIN 400 MG PO ×2 (07:42→19:50)
[2024-12-04] MEDS: MIRALAX PO (07:42)
--- NOTE | 2024-12-04 08:19 | W.PN.INTV ---
Today's Communication / Plan
Recommendations
Weaned off ketamine drip yesterday
Defer AEDs to neurology
Nicotine patch
Raise PO Zyprexa to 10 mg PO BID - pt has agreed to take this medication now
Continue melatonin HS (although he has been refusing this as well)
Once medically stable and off all restraints for at least 24 hours, he will be transferred to inpatient psych
Patient is stable for downgrade out of ICU to IMU. No additional recommendations at this time. Air Brake Mechanic/Pulmonary service will now sign off. Please reconsult if there are any additional questions/concerns, or if patient's respiratory status
deteriorates.
Assessment
-
Patient is a 41-year-old gentleman who was brought to the hospital due to suicidal ideations that he expressed to his mother. Reportedly patient has history of seizure and has not been taking his medications at home. EMS brought to the him to the
hospital. He had episodes of teeth grinding and some clonic activity in the ER which were concerning for seizure. Patient had 302 petition filed by mother, supported by emergency room. Reported history of trauma as well as seizure disorder
in time as well as in childhood. Also reported history of bipolar disorder. Reported prior history of alcohol abuse, sober since 2 years. Patient was admitted to the hospitalist service for further workup and management
11/29, patient became very agitated this morning he pulled out his IV he had threatening behavior towards the staff and was subsequently transferred to ICU restrained in view of extreme agitation. Air Brake Mechanic consult was requested for further input.
#1. Extreme agitation, aggressive behavior towards staff
-12/01 Patient was calm in the morning, off restraints, off Precedex infusion, subsequently eloped. Security was able to locate him outside hospital. Readmitted on 4 point restraints.
-Continue current medications. One-to-one observation
-As needed IV Ativan or p.o. clonazepam depending on ability to take p.o.
-Psychiatry and neurology service on case
-Urine tox positive for marijuana and benzodiazepine
- Patient was on ketamine gtt, now off since 12/03.
- Patient has been refusing his oral Zyprexa. As of 12/04, he has agreed to take his oral Zyprexa and I will raise it to 10 mg BID. Patient was started on melatonin last night but he also refused this.
-12/02, patient got out of soft restraints and had a fall followed by laceration in the forehead area. Back in 4 point restraints
#2. Seizure disorder with episodes of teeth grinding and gaze deviation
- Neurology service on case
- Additional breakthrough seizures noted outpatient scheduler on 11/30/2024
- Defer AEDs to neurology
- Per neurology service, patient unlikely to be completely seizure-free. Most episodes appear to be partial seizures.
- As needed Ativan for breakthrough seizures
- CBC, CMP, renal and liver function essentially unremarkable.
- Ketamine infusion started 12/02- weaned off this yesterday (12/03)
#3. ? Underlying psychiatric disorder with reported suicidal ideation
- Currently status 303. Psychiatry service on case -as of 12/04, the patient says that he is not suicidal and would like to speak to psychiatry as he does not want to go to inpatient psychiatry admission. I will have the psychiatrist come back to
speak to the patient today and reevaluate his requirement for involuntary psychiatric admission.
Other medical diagnoses:
- History of substance abuse, urine drug screen positive for marijuana
- History of smoking
- History of alcohol use disorder, reportedly sober since October 2022
DVT prophylaxis, subcu Lovenox
Discussed with RN at bedside.
Patient is stable for downgrade out of ICU to IMU. No additional recommendations at this time. Air Brake Mechanic/Pulmonary service will now sign off. Thank you for allowing us to be involved in the care of this patient. Please reconsult if there are
any additional questions/concerns, or if patient's respiratory status deteriorates.
Total time spent today was 57 minutes for this encounter. Time includes reviewing laboratory test/imaging results, reviewing pertinent medical records, obtaining and reviewing medical history, performing an appropriate exam, ordering medications,
tests and procedures. Time also includes documentation of this encounter, coordinating patient care and communicating with other healthcare professionals. Total time does not include separately billed tests performed on this date of service.
Subjective Dataa
Subjective Data
Date of Service:
Date of Service: December 04, 2024
Chief Complaint: Air Brake Mechanic Follow Up
Subjective:
Patient seen and evaluated this morning. Currently on 2 point soft restraints. He is awake, alert and conversing without any shortness of breath. Denies chest pain. On room air breathing comfortably.
Review of Systems
General: Other (Negative unless mentioned above)
Objective Data
Data Reviewed
Vital Signs / I&O / Oxygen:
Vital Signs
Temp Pulse Resp BP Pulse Ox
98.2 F 68 17 133/77 96
12/04/24 08:04 12/04/24 08:00 12/04/24 08:00 12/04/24 08:00 12/04/24 08:00
Intake and Output
12/03/24 12/04/24 12/05/24
06:59 06:59 06:59
Intake Total 1464.5 / 1464.5 1200 / 1200
Output Total 1325 / 1325 1500 / 1500
Balance 139.5 / 139.5 -300 / -300
SaO2 96
Physical Exam
General: Respiratory Distress (negative), Comfortable, Chills (negative) and Sweats (negative)
HEENT: Normocephalic and Anicteric
Cardiovascular: S1-S2 and Peripheral Edema (negative)
Respiratory: Clear, Wheeze (negative), Crackles (negative), Rhonchi (negative) and Non-Labored Respirations
GI: Soft, Non Distended, Non Tender and Normal Bowel Sounds
Neurology: Awake, Alert and Tremors (negative)
Skin: Warm, Dry, Cyanosis (negative) and Jaundice (negative)
Labs/Micro/Reports
Lab Data
12/03/24 04:43
12/03/24 04:44
--- NOTE | 2024-12-04 08:36 | PTCARENOTE ---
Uncooperative at times. Stating he has no need for soft restraints but also says he will run out of the hospital if possible. Restraints on. Agitated, perseverating on shoes that he believes he came to hospital in. Refusing Zyprexa, vimpat, and
trileptal stating he will spit out all of his meds if RN sneaks them in. Also refusing miralax and nicotine patch. Yelling at TV when news stories come on 'I hate black people' and 'we should kill all retards at .' Insisting on calling mom to
ask about shoes. Conversation with mother circled mainly about how she should not have called police/EMS, making her say she will never do it again. No threats of violence heard in conversation. After phone call pt wanted to call her back to ask
if she threw away his pot. when told no, ripped off leads and became verbally aggressive, trying to get out of restraints.
[2024-12-04] MEDS: VIMPAT 200 MG PO ×2 (09:45→19:44)
--- NOTE | 2024-12-04 09:53 | PTCARENOTE ---
Addendum entered by Donya Reeder RN 12/04/24 10:58:
Pt removed ECG leads and refusing to allow RN to replace.
Original Note:
Security called after outburst. Negotatieted with pt to allow bedside commode if he takes Vimpat. Released one restraint with security at bedside, successful BM and Vimpat taken. Changed to paper scrubs as pt requested.
--- NOTE | 2024-12-04 10:09 | W.PN.HOSP.TC ---
Today's Communication/Plan
-
Inpatient psychiatric transfer when a bed is secured
Assessment / Plan
Assessment / Plan
49-year-old admitted with suicidal ideations and also intractable seizures. A 302 petition was filed by mom and 3 other extension done here. He left-ran away from the hospital and was brought back by the police. Today he was on restraints and
then still try to get out of bed and had a fall and had laceration of the right eyebrow area. This was after my first visit. Second time patient was seen as well denies any complaints
Calmer today, still wanting to leave
Cardiovascular system S1-S2 appreciated
Chest clear to auscultation
Abdomen soft and nontender
Skin laceration with Steri-Strips above right eyebrow
# Tonic-clonic Movements with Teeth grinding.
Seizures on EEG
Also not sure if this is postictal psychosis
Probable breakthrough seizure secondary to noncompliance with medicines. Patient stated that he does not like Topamax however he was taking it. Mom Says he wasn't taking it.
Patient has a vagal nerve stimulator placed in 2013 and changed in 2023
Follows up with Dr. Huan Copeland at [facility]
Per discussion with neurology vagal nerve stimulator interrogation-noted multiple seizure activities
Neurology and psychiatry evaluation appreciated
Mom states that patient is supposed to be on 400 mg twice daily of Neurontin.
Continue Briviact, Vimpat, Klonopin, Trileptal.
Per discussion with neurology it may be difficult to control his seizures completely.No SZ for 2 days
Maintain 1:1
Off Precedex
Was taken off of restraints when patient eloped.
Pt on 303 extension.
On restraints - Wrists
Ketamine infusion stopped
Appreciate Dr. Rodriguez speaking with Katty Bianchi, [facility] neuro to update.
# Bipolar Disease- Psyche following. Zyprexa started.
# Marijuana use-urine drug screen positive for marijuana
# Smoker- Sessation Counselling. Smokes almost half a pack a day. Continue nicotine patch
# Alcohol abuse and stopped and Sober for 2 years as of october
# H/O Drug abuse in the past per mom
# DVT prophylaxis-Lovenox
# Full code
Discussed with nursing at bedside
Anticipated Discharge: Within 24 hours
Subjective/Interval History
-
Date of Service: December 04, 2024
Objective Data
-
Vital Signs:
Vital Signs
Temp Pulse Resp BP Pulse Ox
98.2 F 68 17 133/77 96
12/04/24 08:04 12/04/24 08:00 12/04/24 08:00 12/04/24 08:00 12/04/24 08:00
I&O
12/03/24 12/04/24 12/05/24
06:59 06:59 06:59
Intake Total 1464.5 / 1464.5 1200 / 1200
Output Total 1325 / 1325 1500 / 1500
Balance 139.5 / 139.5 -300 / -300
--- NOTE | 2024-12-04 10:28 | CM ---
This CM assisting with psych bed search
[facility] (p) [phone]- no beds today
[facility] (p) [phone]- not accepting out of system referrals
[facility] (p) [phone]- not accepting new referrals today
[facility] (p) [phone]-not accepting of 302/303
[facility] (p) [phone]- no beds today
Referrals faxed to the following and pending-
[facility] (p)[phone] (f)[phone]
[facility] (p) [phone] (f) [phone]
[facility] (p) [phone] (f) [phone]
[facility] (p) [phone] (f) [phone]
[facility] (p) [phone] (f) [phone]
[facility] (p) [phone] (f) [phone]
[facility] (p) [phone] (f) [phone]
[facility] (p) [phone] (f) [phone]
--- NOTE | 2024-12-04 10:38 | CM ---
[facility] is unable to accept patient in soft wrist restraints. He must be off restraints for at least 4 hours. Additional referrals being forwarded.
--- NOTE | 2024-12-04 10:50 | W.PN.UPDATE ---
Update Note
Progress Note Update
Patient seen at bedside, RN present, chart reviewed. Mr. James appears to be calmer when seen but has had continued 'outbursts' this AM and continues to refuse certain meds. He tells us he is doing well and does not need to go to a psychiatric
facility, he only agrees to take Gabapentin and 'his seizure meds and the K Pin (klonopin). He tells us he hates black people and he hopes someone kills Ric Rodriguez in senior care as he came on the TV. He tells us how he helps his mom at home and needs to get
home to help her. He denies any SI/SB. No overt psychosis noted, he is hyperverbal and fixated on not needing psychiatric care.
Impression/Recommendation: Unspecified Bipolar disorder; on 303 for SI - Continue with inpatient psych placement efforts, continue to encourage Zyprexa which is currently ordered at 5mg BID. Psych will follow.
[2024-12-04] MEDS: ZYPREXA 10 MG PO ×2 (11:15→19:51)
[2024-12-04] MEDS: KLONOPIN 0.5 MG PO (11:27)
--- NOTE | 2024-12-04 14:22 | PTCARENOTE ---
Currently perseverating on walking home after Psych providers return and release him because 'I'm perfectly fine. I don't need to go to a psych tyler, that's for crazy people.' Pt has been asking when the psych providers will be returning every
approx 5 min since rounds with supervisor fishing. Pt believes that since he agreed to scott that now the Psych providers will release him. Repeatedly requesting to call mother. Allowed to call but no answer at this time. Pt became agitated and implied
by [id number] gesture that he intended violence to mother. Again stated that he is just goint to run out of the hospital and hide from the police.
--- NOTE | 2024-12-04 14:54 | CM ---
Addendum entered by Patrice Catherine 12/04/24 15:01:
Patient's mother notified of previous notes.
Addendum entered by Patrice Catherine 12/04/24 14:54:
[facility] cannot accept patient as they believe his medical acuity level is too high and they are unable to support his needs.
Original Note:
[facility] is unable to accept patient in soft wrist restraints. He must be off restraints for at least 24 hours. Additional referrals being forwarded.
Initialized on 12/04/24 10:38 - END OF NOTE
[2024-12-04] MEDS: LOVENOX SC (17:44)
[2024-12-04] MEDS: TYLENOL 650 MG PO (17:50)
[2024-12-04] MEDS: TRILEPTAL 600 MG PO (19:46)
--- NOTE | 2024-12-04 19:54 | PTCARENOTE ---
rec` pt at 1900 AAOx3. pt impulsive but able to reorient. giving pt 2000 meds and pt states, ' I pop or snort several of those medications at home whenever I want.' pt did not want a few of his 2000 meds but I educated him on the importance of
taking his medication. Pt fully agreed to take all of his meds and he successfully did. RA. Uses urinal. Restraints continued. Pt complains of rt upper hip pain from previous fall. Ice pack applied. safe environment maintained. 1-1 observation
continued.
[2024-12-04] MEDS: MELATONIN PO (20:51)
[2024-12-04] MEDS: SENOKOT PO (20:52)
--- NOTE | 2024-12-04 23:14 | PTCARENOTE ---
pt awakens up from his sleep, starts saying he needs to make money when he gets out of the hospital. Then states, ' if my mom passes away, I get the money and everything.' pt did not elaborate on how or when she would pass away.
[2024-12-05] VITALS (11 sets, daily range): BP systolic 119–138; BP diastolic 71–88; PULSE 71; O2SAT 100; BMI 19.7
[2024-12-05 05:32] LABS: Hematocrit 43.2 % (39.0-52.0); Hemoglobin 15.4 g/dL (13.0-18.0); Mean Corp Hgb Conc. 35.6 g/dL (33.0-37.0); Mean Corpuscular Hgb 31.2 pg (27.0-31.0); Mean Corpuscular Volume 87.4 fL (80.0-94.0); Mean Platelet Volume 8.9 fL (7.4-10.4); Platelet Count 196 10^3/uL (130-400); Red Blood Cell Count 4.94 10^6/uL (4.70-6.10); Red Cell Dist. Width 12.2 % (11.5-14.5); White Blood Cell Count 8.1 10^3/uL (4.8-10.8)
--- NOTE | 2024-12-05 05:47 | PTCARENOTE ---
Pt slept for a few hours. agreed to morning labs and ekg. pt states he`s gonna get back at him mom by ' going home and drinking a whole bottle of whiskey'. ' I am off probation, I can do whatever what I want... get absolutely wasted.'
[2024-12-05 06:07] LABS: Blood Urea Nitrogen 11 mg/dl (9-20); Calcium 9.2 mg/dl (8.4-10.2); Carbon Dioxide 26 mmol/L (22-30); Chloride 107 mmol/L (98-107); Estimated Creatinine Clearance > 125 ml/min; Glucose 91 mg/dl (70-99); Magnesium 1.6 mg/dl (1.6-2.3); Phosphorus 3.3 mg/dl (2.5-4.5); Potassium 4.2 mmol/L (3.5-5.1); Sodium 138 mmol/L (135-145); eGFR > 60.00
[2024-12-05] MEDS: NICODERM TRANSDERMAL 14 MG TRANSDERM (08:05)
[2024-12-05] MEDS: ZYPREXA 10 MG PO ×2 (08:05→20:33)
[2024-12-05] MEDS: TRILEPTAL 600 MG PO ×2 (08:06→21:20)
[2024-12-05] MEDS: BRIVIACT 150 MG PO ×2 (08:06→20:31)
[2024-12-05] MEDS: NEURONTIN 400 MG PO ×2 (08:06→20:32)
[2024-12-05] MEDS: MIRALAX 17 GRAMS PO (08:06)
[2024-12-05] MEDS: KLONOPIN 1 MG PO ×2 (08:06→20:32)
[2024-12-05] MEDS: VIMPAT 200 MG PO ×2 (08:18→20:33)
--- NOTE | 2024-12-05 09:02 | W.PN.HOSP.TC ---
Addendum entered and electronically signed by Dayron Menchaca MD 12/05/24 09:25:
Called mother 2 more times. Went to message as well
Original Note:
Today's Communication/Plan
-
Patient really calm and cooperative wants to take medicines
He is looking forward to completing his inpatient psych stay and having a normal life after that.
Maintain one-to-one as patient is on 303
Continue medicines as ordered
Assessment / Plan
Assessment / Plan
49-year-old admitted with suicidal ideations and also intractable seizures. A 302 petition was filed by mom and 3 other extension done here. He left-ran away from the hospital and was brought back by the police. Today he was on restraints and
then still try to get out of bed and had a fall and had laceration of the right eyebrow area. This was after my first visit. Second time patient was seen as well denies any complaints
Calm. Accepted that he needs an inpatient stay at psyche facility.
Cardiovascular system S1-S2 appreciated
Chest clear to auscultation
Abdomen soft and nontender
Skin laceration with Steri-Strips above right eyebrow- healing.
# Tonic-clonic Movements with Teeth grinding.
Seizures on EEG
Also not sure if this is postictal psychosis
Probable breakthrough seizure secondary to noncompliance with medicines. Patient stated that he does not like Topamax however he was taking it. Mom Says he wasn't taking it.
Patient has a vagal nerve stimulator placed in 2013 and changed in 2023
Follows up with Dr. Huan Copeland at [place]
Per discussion with neurology vagal nerve stimulator interrogation-noted multiple seizure activities
Neurology and psychiatry evaluation appreciated
Mom states that patient is supposed to be on 400 mg twice daily of Neurontin.
Continue Briviact, Vimpat, Klonopin, Trileptal.
Per discussion with neurology it may be difficult to control his seizures completely.
Patient has not had a seizure for several days now
Maintain 1:1
Off Precedex
Was taken off of restraints when patient eloped.
Pt on 303 extension.
Off restraints
Ketamine infusion stopped
Appreciate Dr. Rodriguez speaking with Katty Bianchi, JULIO lu to update.
# Bipolar Disease- Psyche following. Zyprexa started.
# Marijuana use-urine drug screen positive for marijuana
# Smoker- [facility]. Smokes almost half a pack a day. Continue nicotine patch
# Alcohol abuse and stopped and Sober for 2 years as of october
# H/O Drug abuse in the past per mom
# DVT prophylaxis-Lovenox
# Full code
Discussed with nursing at bedside
Left message for mother
Discussed with case management
Anticipated Discharge: Within 24 hours
Subjective/Interval History
-
Date of Service: December 05, 2024
Objective Data
-
Labs:
Laboratory Results
12/05/24
05:22
WBC 8.1
Hgb 15.4
Hct 43.2
Plt Count 196
Sodium 138
Potassium 4.2
Chloride 107
Carbon Dioxide 26
BUN 11
Creatinine 0.6 L
Glucose 91
Calcium 9.2
Vital Signs:
Vital Signs
Temp Pulse Resp BP Pulse Ox
97.8 F 71 16 119/71 100
12/05/24 07:36 12/05/24 08:44 12/05/24 08:44 12/05/24 08:44 12/05/24 08:44
I&O
12/04/24 12/05/24 12/06/24
06:59 06:59 06:59
Intake Total 1200 / 1200 250 / 250 360 / 360
Output Total 1500 / 1500 850 / 850 400 / 400
Balance -300 / -300 -600 / -600 -40 / -40
[2024-12-05] MEDS: MAGNESIUM OXIDE 500 MG PO (09:16)
--- NOTE | 2024-12-05 11:41 | PTCARENOTE ---
Hospitalist team at bedside. Patient remains unrestrained thru morning since 0600am. Continue 1:1 observation. VSS, assessment unchanged with some noted impulsivity, anxiousness but very cooperative. Worked with PT/OT walked room and hallway with
observation. Continue to transition to med/surg and treatment facility when available. Continue with teaching and supportive cares. 100% of breakfast eaten. Continue with mobility protocols. AM cares completed.
--- NOTE | 2024-12-05 11:57 | W.PN.UPDATE ---
Update Note
Progress Note Update
patient seen chart reviewed. spoke with nursing. the patient was sleeping this am when i attempted to see him . will return this afternoon. also spoke to dr hurtado. it has been an eventful few days w patient elooping at one point from the icu. he
has been in and out of restraints. he is at this point much calmer. out of restraints. the plan is for transfer to [place] if he can remain out of restraints until tomorrow. did not make any changes in his meds which he is now taking without
incident including zyprexa 10 mg bid as well as his antiepileptic medications. will follow and hopefully will see this afternoon when he awakens.
--- NOTE | 2024-12-05 12:51 | PTCARENOTE ---
Psych jones at bedside for patient. Patient remains cooperative. Out of restraints since am. One to one to be maintained. Critical care nursing in and out at bedside.
[2024-12-05] MEDS: TYLENOL 650 MG PO ×2 (13:16→23:21)
--- NOTE | 2024-12-05 13:43 | CM ---
Off restraints since 6:00AM, ambulated in [place] with supervision only, therapy eval-no PT needs, more cooperative, eating lunch, Accepting medications. 1:1 continues. Call placed to [facility] at [facility]. Left message with updated
information and inquiry for bed availability on 12/06/24. Awaiting return call.
--- NOTE | 2024-12-05 14:51 | W.PN.UPDATE ---
Update Note
Progress Note Update
returned to icu to see patient this afternoon. he is calmer. he continues however to have NO insight into the events precipitating his admit. continues to insist he knows what he is doing and he could be dc without any issues at all. my guess is
that the zyprexa is subduing his mood lability but that his thought process remains impaired. he is not fighting the reality that he will go to psych facility for up to 20 days when we find one which will accept him which may be [facility]. did
not make any changes in his psych meds. he has no ill effects. he is NOT sedated. he was awake and alert when i saw him. spoke to cm who is awaiting a yay or nay from [facility] re admit to that psych unit. will follow
--- NOTE | 2024-12-05 18:17 | PTCARENOTE ---
Patient remains awake alert oriented cooperative. Impulsive but cooperative and interactive with staff. Unrestrained thru day without issues. Maintain safety and follow up ongoing one on one status. Nursing associates at bedside throughout day.
Continue teaching supportive cares.Patient remains unmonitored as per Hospitalist team. VSS stable thru shift. Follow up medications via [facility].
[2024-12-05] MEDS: LOVENOX 40 MG SC (18:28)
--- NOTE | 2024-12-05 20:00 | PTCARENOTE ---
Addendum entered by Winnie Tan RN 12/06/24 01:29:
pt continues to refuse heart monitor.
Original Note:
Patient remains unrestrained, but continues w/ :1 observation. pt anxious, a little impulsive, but cooperative. pt OOB to bathroom. pt talking with staff and watching TV.
[2024-12-05] MEDS: MELATONIN 10 MG PO (21:21)
[2024-12-05] MEDS: SENOKOT PO ×2 (21:21→21:24)
[2024-12-05] MEDS: KLONOPIN 0.5 MG PO (23:21)
[2024-12-06] VITALS (7 sets, daily range): BP systolic 108–137; BP diastolic 43–91; BMI 20.4
[2024-12-06] MEDS: MIRALAX 17 GRAMS PO (07:52)
[2024-12-06] MEDS: TRILEPTAL 600 MG PO ×2 (07:54→19:08)
[2024-12-06] MEDS: ZYPREXA 10 MG PO ×2 (07:54→19:08)
[2024-12-06] MEDS: VIMPAT 200 MG PO ×2 (07:54→19:07)
[2024-12-06] MEDS: BRIVIACT 150 MG PO ×2 (07:55→19:08)
[2024-12-06] MEDS: NEURONTIN 400 MG PO ×2 (07:55→19:08)
[2024-12-06] MEDS: NICODERM TRANSDERMAL TRANSDERM (07:56)
[2024-12-06] MEDS: MAGNESIUM OXIDE 500 MG PO (07:56)
[2024-12-06] MEDS: KLONOPIN 1 MG PO ×2 (07:56→19:08)
[2024-12-06] MEDS: TYLENOL 650 MG PO (10:02)
[2024-12-06] MEDS: KLONOPIN 0.5 MG PO ×3 (10:02→22:59)
--- NOTE | 2024-12-06 10:12 | CM ---
Addendum entered by Patrice Catherine 12/06/24 15:29:
Patient's mother aware of below.
Addendum entered by Patrice Catherine 12/06/24 13:36:
Received call from Noble at [facility]. [facility] Psychiatrist is willing to accept patient tomorrow, 12/07/24 if he continues to be out of restraints and behaviors remain manageable.
Dr. Leal is willing to speak with Psychiatrist to review case for reconsideration for admission today. This CM left message for Noble requesting Psychiatrist's name and phone number.
Addendum entered by Patrice Catherine 12/06/24 11:11:
Left message for Noble at [facility] for determination on accepting patient.
Original Note:
Spoke with Noble at [facility]. Verbally updated that patient has been cooperative, taking meds and out of restraints since 6:00 AM 12/05/24. Per request, forwarded updated records.
[2024-12-06] MEDS: ATIVAN 2 MG PO (10:40)
--- NOTE | 2024-12-06 11:08 | W.PN.UPDATE ---
Update Note
Progress Note Update
patient seen chart reviewed. spoke with nursing and with case mgt. the patient is very ambivalent about being transferred to psych. it has been explained to him repeatedly that he is under section 303 of the mental health act and has been
committed to up to 20 days of in pt care of which 14 days remain. he keeps insisting that he should be discharged to home or to his mother's home. mother is not allowing him back in the home. his thought process is disorganized often. he has not
become out of control but at one point was getting loud and hopping about the room. he did accept an ativan 2 mg which did calm him somewhat. with a one to one present as well as his nurse we tried repeatedly to help him understand his current
circumstance. in the meantime continues to try to firm up plans for transfer to psych facility at [facility]. will continue to follow
--- NOTE | 2024-12-06 12:13 | W.PN.HOSP.TC ---
Today's Communication/Plan
-
CM worj=katty on acceptance to inpatient psych - will await for ok to d/c from her, CM aware (psychiatrist can take patient to [facility] on 12/07/24, if remains stable)
Assessment / Plan
Assessment / Plan
49-year-old admitted with suicidal ideations and also intractable seizures. A 302 petition was filed by mom and 3 other extension done here. He left-ran away from the hospital and was brought back by the police. Remained off restrains, taking his
AED. Medcially stable for d/c to inpatient psych
A/P:
#Breakthrough seizures
Probable breakthrough seizure secondary to noncompliance with medicines. Patient stated that he does not like Topamax however he was taking it. Mom Says he wasn't taking it.
Patient has a vagal nerve stimulator placed in 2013 and changed in 2023
Follows up with Dr. Huan Copeland at [place]
Per discussion with neurology vagal nerve stimulator interrogation-noted multiple seizure activities
Continue Briviact, Vimpat, Klonopin, Trileptal.
Per discussion with neurology it may be difficult to control his seizures completely.
Patient has not had a seizure for several days now
Maintain 1:1
Off Precedex
Was taken off of restraints when patient eloped.
Pt on 303 extension.
Off restraints
Ketamine infusion stopped
#Bipolar Disease
Psych following. Zyprexa started.
#Marijuana use
#Nicotine dependency
#Hx of lcohol abuse
#Hx of drug abuse
urine drug screen positive for marijuana
counseled on cessation
Nicoderm prn
DVT ppx loveox
Full code
I have spent at least 38min reviewing chart, test results, communication with consultants and providing direct patient care
Anticipated Discharge: Within 24 hours
Subjective/Interval History
-
Date of Service: December 06, 2024
Objective Data
-
Vital Signs:
Vital Signs
Temp Pulse Resp BP Pulse Ox
97.7 F 70 24 108/90 96
12/06/24 07:36 12/06/24 07:36 12/06/24 07:36 12/06/24 07:33 12/06/24 11:26
I&O
12/05/24 12/06/24 12/07/24
06:59 06:59 06:59
Intake Total 250 / 250 1800 / 1800
Output Total 850 / 850 400 / 400
Balance -600 / -600 1400 / 1400
Review of Systems
-
History Source: Patient
All other systems: Reviewed and negative
Physical Exam
-
General: No Apparent Distress
HEENT: Normocephalic
Cardiac: Regular Rhythm
GI: Soft, Nontender and Nondistended
Neuro: Awake, Alert, Oriented and AO x 3
--- NOTE | 2024-12-06 15:52 | PTCARENOTE ---
Pt received in bed @ 0700. 1:1 observation maintained for suicide/violence risk related to 303 status. Pt agreeable to all scheduled medication. Pressured speech at times. Anxious about status of transfer to inpatient psych. Fixated on where is
shoes might be. Incidents of yelling and being animated in room but redirectable. PRN Ativan 2mg PO x1 now ordered by Dr. Leal; pt agreeable to administration. Appropriate interactions with staff after.
[2024-12-06] MEDS: LOVENOX SC (17:28)
--- NOTE | 2024-12-06 19:21 | PTCARENOTE ---
ax3 forgetful. restless but cooperative
--- NOTE | 2024-12-06 21:20 | PTCARENOTE ---
Addendum entered by Shane Eduardo RN 12/06/24 21:21:
wishes not to be telemetry monitored as the telemetry stickers are making him uncomfortable
Original Note:
remains pleasant and cooperative. he wishes not to be monitored and to not have iv in at this time. remains on 1-1-safe environment maintained
[2024-12-06] MEDS: MELATONIN 10 MG PO (22:59)
[2024-12-06] MEDS: SENOKOT PO (22:59)
[2024-12-07] VITALS (10 sets, daily range): BP systolic 95–124; BP diastolic 68–102
--- NOTE | 2024-12-07 00:50 | PTCARENOTE ---
pt took all meds ordered. remains cooperative . 1-1 at bedside- currently sleeping - all vitals stable
--- NOTE | 2024-12-07 06:38 | PTCARENOTE ---
pt slept from 2330 until 0530- woke up pleasant and cooperative- remains 1-1 breakfast ordered
[2024-12-07] MEDS: NEURONTIN 400 MG PO ×2 (07:25→19:00)
[2024-12-07] MEDS: TRILEPTAL 600 MG PO ×2 (07:25→19:01)
[2024-12-07] MEDS: MAGNESIUM OXIDE 500 MG PO (07:25)
[2024-12-07] MEDS: NICODERM TRANSDERMAL TRANSDERM (07:26)
[2024-12-07] MEDS: BRIVIACT 150 MG PO ×2 (07:26→19:00)
[2024-12-07] MEDS: VIMPAT 200 MG PO ×2 (07:26→19:01)
[2024-12-07] MEDS: MIRALAX PO (07:26)
[2024-12-07] MEDS: ZYPREXA 10 MG PO ×2 (07:26→19:00)
[2024-12-07] MEDS: KLONOPIN 1 MG PO ×2 (07:26→19:01)
[2024-12-07 07:55] LABS: % Basophils 0.7 % (0-2); % Eosinophils 1.8 % (0-6); % Immature Granulocytes 0.5 % (0-0.5); % Lymphocytes 26.1 % (20.5-51.1); % Monocytes 7.2 % (1.7-9.3); % Neutrophils 63.7 % (42.2-75.2); Absolute Basophils 0.1 10^3/uL (0-0.2); Absolute Eosinophils 0.2 10^3/uL (0-0.7); Absolute Immature Granulocytes 0.1 10^3/uL (0-0.05); Absolute Lymphocytes 2.4 10^3/uL (1.2-3.4); Absolute Monocytes 0.7 10^3/uL (0.1-0.6); Absolute Neutrophils 5.8 10^3/uL (1.4-6.5); Hematocrit 47.3 % (39.0-52.0); Hemoglobin 16.5 g/dL (13.0-18.0); Mean Corp Hgb Conc. 34.9 g/dL (33.0-37.0); Mean Corpuscular Hgb 31.2 pg (27.0-31.0); Mean Corpuscular Volume 89.4 fL (80.0-94.0); Mean Platelet Volume 8.6 fL (7.4-10.4); Nucleated Red Blood Cells % 0 % (-); Platelet Count 208 10^3/uL (130-400); Red Blood Cell Count 5.29 10^6/uL (4.70-6.10); Red Cell Dist. Width 12.2 % (11.5-14.5); White Blood Cell Count 9.1 10^3/uL (4.8-10.8)
[2024-12-07 08:14] LABS: ALT (SGPT) 22 U/L (0-50); AST (SGOT) 20 U/L (17-59); Albumin 4.7 g/dl (3.5-5.0); Alkaline Phosphatase 84 U/L (38-126); Blood Urea Nitrogen 22 mg/dl (9-20); Carbon Dioxide 31 mmol/L (22-30); Chloride 100 mmol/L (98-107); Estimated Creatinine Clearance 121 ml/min; Glucose 140 mg/dl (70-99); Potassium 4.5 mmol/L (3.5-5.1); Sodium 140 mmol/L (135-145); Total Bilirubin 0.5 mg/dl (0.2-1.3); Total Protein 7.7 g/dl (6.3-8.2); eGFR > 60.00
--- NOTE | 2024-12-07 08:25 | PTCARENOTE ---
report received. assessments per work list. patient in good spirits, cooperative and pleasant. 1:1 observation maintained. listening to music. labs,cxr completed.
--- NOTE | 2024-12-07 08:48 | CM ---
Addendum entered by Patrice Catherine 12/07/24 11:18:
Updated patient's mother.
Addendum entered by Patrice Catherine 12/07/24 11:10:
Per Noble request: EKG and Urine drug screen results forwarded.
Addendum entered by Patrice Catherine 12/07/24 10:46:
Received call from [facility]. Patient is accepted, however they do not have a bed today. They had several emergency admissions. Possibly a bed tomorrow but more likely Tuesday or Tuesday. CM TO CALL [phone] on WEEKEND FOR BED AVAILABILITY.
Addendum entered by Patrice Catherine 12/07/24 10:18:
Left another phone message for Noble, RE: Admission determination.
Original Note:
Last 24 hours of updated notes forwarded via fax to Noble @ [facility]. [facility] Psychiatrist noted on 11/05/24 that if patient remained out of restraints and had no escalating behaviors they would be willing to accept patient
today, 12/07/24. Also left phone message for Noble. Awaiting return call.
--- NOTE | 2024-12-07 09:38 | W.PN.HOSP.TC ---
Today's Communication/Plan
-
dc to inpatient psych
Assessment / Plan
Assessment / Plan
49-year-old admitted with suicidal ideations and also intractable seizures. A 302 petition was filed by mom and 3 other extension done here. He left-ran away from the hospital and was brought back by the police. Remained off restrains, taking his
AED. Single episode of elevated temp documented on 12/07/24 with normal WBC, neg chest XR and retaken temp in 1 hour was normal without Tylenol. No suspicion for infection, remains medcially stable for d/c to inpatient psych
A/P:
#Breakthrough seizures
Probable breakthrough seizure secondary to noncompliance with medicines. Patient stated that he does not like Topamax however he was taking it. Mom Says he wasn't taking it.
Patient has a vagal nerve stimulator placed in 2013 and changed in 2023
Follows up with Dr. Huan Copeland at [place]
Per discussion with neurology vagal nerve stimulator interrogation-noted multiple seizure activities
Continue Briviact, Vimpat, Klonopin, Trileptal.
Per discussion with neurology it may be difficult to control his seizures completely.
Patient has not had a seizure for several days now
Maintain 1:1
Off Precedex
Was taken off of restraints when patient eloped.
Pt on 303 extension.
Off restraints
Ketamine infusion stopped
#Bipolar Disease
Psych following. Zyprexa started.
#Marijuana use
#Nicotine dependency
#Hx of lcohol abuse
#Hx of drug abuse
urine drug screen positive for marijuana
counseled on cessation
Nicoderm prn
DVT ppx loveox
Full code
I have spent at least 38min reviewing chart, test results, communication with consultants and providing direct patient care
Anticipated Discharge: Today
Subjective/Interval History
-
Date of Service: December 07, 2024
Objective Data
-
Labs:
Laboratory Results
12/07/24
07:42
WBC 9.1
Hgb 16.5
Hct 47.3
Plt Count 208
Sodium 140
Potassium 4.5
Chloride 100
Carbon Dioxide 31 H
BUN 22 H
Creatinine 0.7
Glucose 140 H
Calcium 10.0
Total Bilirubin 0.5
AST 20
ALT 22
Alkaline Phosphatase 84
Vital Signs:
Vital Signs
Temp Pulse Resp BP Pulse Ox
97.9 F 68 22 120/82 98
12/07/24 08:12 12/07/24 08:22 12/07/24 08:22 12/07/24 08:25 12/07/24 08:22
I&O
12/06/24 12/07/24 12/08/24
06:59 06:59 06:59
Intake Total 1800 / 1800 440 / 440 480 / 480
Output Total 400 / 400
Balance 1400 / 1400 440 / 440 480 / 480
Review of Systems
-
History Source: Patient
All other systems: Reviewed and negative
Physical Exam
-
General: No Apparent Distress
HEENT: Normocephalic
Respiratory: Clear to Auscultation
Cardiac: Regular Rhythm
GI: Soft, Nontender and Nondistended
Musculoskeletal: No Clubbing, No Cyanosis and No Edema
Neuro: Awake, Alert, Oriented and AO x 3
Psych: Calm; Negative Intact Judgement/Insight
--- NOTE | 2024-12-07 09:42 | W.DCSUMMARY ---
Discharge Summary
Discharge Data
Date of Admission: 12/01/24
Date of Discharge: 12/07/24
-
Pending Results: No
Hospital Course
49-year-old admitted with suicidal ideations and also intractable seizures. A 302 petition was filed by mom and 3 other extension done here. He left-ran away from the hospital and was brought back by the police. Remained off restrains, taking his
AED, seizure free for >48h before d/c. . Single episode of elevated temp documented on 12/07/24 with normal WBC, neg chest XR and retaken temp in 1 hour was normal without Tylenol. No suspicion for infection, remains medcially stable for d/c to
inpatient psych
I have spent at least 38min reviewing chart, test results, communication with consultants and providing direct patient care
Patient was managed for:
#Breakthrough seizures
#Bipolar Disease
#Marijuana use
#Nicotine dependency
#Hx of lcohol abuse
#Hx of drug abuse
Discharge Plan
-
Patient Disposition: Psych Facility
Discharge Diagnosis/Procedures: seizures
Bipolar disease
Marijuana use
Smoking
Diet: As tolerated
Activity: As tolerated
Driving Restrictions: No driving
Referrals:
UNKNOWN - PT DOES,NOT KNOW [Family Provider]
Additional Discharge Medication Instructions: Topamax Stopped.
Prescriptions:
New
clonazepam 0.5 mg Tablet
0.5 mg PO Q6HPRN PRN (Reason: Agitation) Qty: 0 0RF
magnesium oxide 500 mg magnesium Tablet
500 mg PO DAILY Qty: 0 0RF
melatonin 5 mg Tablet
10 mg PO HS Qty: 0 0RF
nicotine 14 mg/24 hr Patch 24 Hour
14 mg transdermal DAILY Qty: 0 0RF
polyethylene glycol 3350 17 gram Powder In Packet
17 g PO DAILY Qty: 0 0RF
olanzapine 5 mg Tablet
10 mg PO BID Qty: 0 0RF
oxcarbazepine 300 mg Tablet
600 mg PO BID Qty: 0 0RF
lacosamide 200 mg Tablet
200 mg PO Q12 Qty: 0 0RF
Continued
Briviact 100 mg tablet
150 mg PO BID@0800,2000
gabapentin 400 mg Capsule
400 mg PO BID
clonazepam 1 mg Tablet
1 mg PO BID
Discontinued
topiramate 50 mg Tablet
100 mg PO BID
Discharge Orders:
Discharge Patient (As Directed); Ordered 12/07/24
Ordered By: Abiodun Otero
Discharge Date and Time
Print Language: BULGARIAN
[2024-12-07] MEDS: KLONOPIN 0.5 MG PO ×3 (10:52→22:38)
--- NOTE | 2024-12-07 13:53 | W.PN.UPDATE ---
Update Note
Progress Note Update
attempted to speak to mr crespo but he was sleeping and i did not feel it was prudent to awaken him at this time. i did speak with his one to one and cm. it was hoped that he would be tf to [facility] today but they apparently do not have a bed and
the tf is postponed to tomorrow or after. staff does tell me so far today he is doing better. he had a reasonably conversation with his mother by phone and was tearful in expressing that he is grateful she has helped him. did not make any changes in
his medications. he seems to have benefitted from 10 mg bid zyprexa . it appears he has improved since it was started. would continue meds as they are at this point except dc ativan as he has a prn for klonopin ordered. psych will look in on him
tomorrow.
[2024-12-07] MEDS: LOVENOX SC (16:54)
--- NOTE | 2024-12-07 20:53 | PTCARENOTE ---
ax3 pleasant cooperative with meds/care. ambulates in room without difficulty- expressed desire to continue this regimen with meds.
[2024-12-07] MEDS: MELATONIN 10 MG PO (22:38)
[2024-12-07] MEDS: SENOKOT PO (22:39)
[2024-12-08 06:55] VITALS: BP 108/78
--- NOTE | 2024-12-08 07:09 | PTCARENOTE ---
recd pt 1:1 maintained. talkative. assessed as noted. verbalizing frustration regarding situation but cooperative and compliant.
[2024-12-08] MEDS: MAGNESIUM OXIDE 500 MG PO (08:01)
[2024-12-08] MEDS: NEURONTIN 400 MG PO ×2 (08:01→19:43)
[2024-12-08] MEDS: VIMPAT 200 MG PO ×2 (08:01→19:44)
[2024-12-08] MEDS: TRILEPTAL 600 MG PO ×2 (08:02→19:45)
[2024-12-08] MEDS: ZYPREXA 10 MG PO ×2 (08:02→19:46)
[2024-12-08] MEDS: BRIVIACT 150 MG PO ×2 (08:02→19:44)
[2024-12-08] MEDS: KLONOPIN 1 MG PO ×2 (08:03→19:43)
[2024-12-08] MEDS: MIRALAX PO (08:03)
[2024-12-08] MEDS: NICODERM TRANSDERMAL TRANSDERM (08:03)
--- NOTE | 2024-12-08 09:04 | CM ---
Addendum entered by Yanet Mccauley 12/08/24 11:39:
Per Attending, patient is stable for discharge; called [facility] # [phone] for bed availability again; phone rang many times; no one answered; was unable to leave a voice mail
Original Note:
CM called [facility] # [phone] for bed availability; phone rang many times; no one answered; was unable to leave a voice mail
--- NOTE | 2024-12-08 09:58 | W.PN.HOSP.TC ---
Today's Communication/Plan
-
remains clinically appropriate for inpatient psych. no seizure over past 48h, taking meds and off restarints
Assessment / Plan
Assessment / Plan
49-year-old admitted with suicidal ideations and also intractable seizures. A 302 petition was filed by mom and 3 other extension done here. He left-ran away from the hospital and was brought back by the police. Remained off restrains, taking his
AED. Single episode of elevated temp documented on 12/07/24 with normal WBC, neg chest XR and retaken temp in 1 hour was normal without Tylenol. No suspicion for infection, remains medcially stable for d/c to inpatient psych
A/P:
#Breakthrough seizures
Probable breakthrough seizure secondary to noncompliance with medicines. Patient stated that he does not like Topamax however he was taking it. Mom Says he wasn't taking it.
Patient has a vagal nerve stimulator placed in 2013 and changed in 2023
Follows up with Dr. Huan Copeland at [place]
Per discussion with neurology vagal nerve stimulator interrogation-noted multiple seizure activities
Continue Briviact, Vimpat, Klonopin, Trileptal.
Per discussion with neurology it may be difficult to control his seizures completely.
Patient has not had a seizure for several days now
Maintain 1:1
Off Precedex
Was taken off of restraints when patient eloped.
Pt on 303 extension.
Off restraints
Ketamine infusion stopped
#Bipolar Disease
Psych following. Zyprexa started.
#Marijuana use
#Nicotine dependency
#Hx of lcohol abuse
#Hx of drug abuse
urine drug screen positive for marijuana
counseled on cessation
Nicoderm prn
DVT ppx loveox
Full code
I have spent at least 38min reviewing chart, test results, communication with consultants and providing direct patient care
Anticipated Discharge: Today
Subjective/Interval History
-
Date of Service: December 08, 2024
Objective Data
-
Vital Signs:
Vital Signs
Temp Pulse Resp BP Pulse Ox
98 F 89 16 108/78 98
12/08/24 07:04 12/08/24 07:04 12/08/24 07:04 12/08/24 06:55 12/08/24 07:18
I&O
12/07/24 12/08/24 12/09/24
06:59 06:59 06:59
Intake Total 440 / 440 1879
Balance 440 / 440 1879
Review of Systems
-
History Source: Patient
All other systems: Reviewed and negative
Physical Exam
-
General: No Apparent Distress
Neuro: Awake, Alert and Oriented
Psych: Negative Intact Judgement/Insight
[2024-12-08 10:12] VITALS: BMI 21.2
--- NOTE | 2024-12-08 11:45 | PTCARENOTE ---
no change, awaiting transfer to room 421. calm, continually talkative. Limited memory, forgetful, at times limited insight. ordered and awaiting lunch. ambulated in hallway with staff, calm, cooperative.
[2024-12-08] MEDS: KLONOPIN 0.5 MG PO ×2 (12:28→15:56)
--- NOTE | 2024-12-08 12:29 | PTCARENOTE ---
report to next RN, finishing lunch, med with klonopin per PRN order 0.5 mg for pre-transfer anxiety.
[2024-12-08 12:51] VITALS: BP 138/76
--- NOTE | 2024-12-08 13:05 | TRANSFER ---
transfer to new room 421 via wc, pt continues to complain that someone stole his [employer] shoes, these had been searched for multiple times in multiple locations in hospital with no result. Unclear if pt actually had them on admission. calm,
cooperative, handoff to next sitter and RN in new location.
--- NOTE | 2024-12-08 15:18 | W.PN.UPDATE ---
Update Note
Progress Note Update
Pt seen at bedside, was sleeping soundly - had just transferred rooms/unit and with history of lability and agitation did not awaken him so as to avoid risk of agitation.
Did order a now dose of clonazepam 0.5mg as later in the day pt became agitated after waking up, nursing staff attempted to redirect pt verbally however prn clonazepam did help calm pt shortly after.
Will reassess tomorrow.
Continue current psychotropics, pt is on a 303 to December 20 - pending transfer to [facility] once bed becomes available
[2024-12-08 15:31] VITALS: BP 134/77
[2024-12-08] MEDS: LOVENOX SC (17:17)
[2024-12-08] MEDS: MELATONIN PO (23:04)
[2024-12-08] MEDS: SENOKOT PO (23:05)
[2024-12-08 23:26] VITALS: BP 121/62
[2024-12-09 07:02] VITALS: BP 129/80
[2024-12-09] MEDS: BRIVIACT 150 MG PO ×2 (07:48→19:34)
[2024-12-09] MEDS: MAGNESIUM OXIDE 500 MG PO (07:48)
[2024-12-09] MEDS: MIRALAX PO (07:48)
[2024-12-09] MEDS: NEURONTIN 400 MG PO ×2 (07:49→19:34)
[2024-12-09] MEDS: VIMPAT 200 MG PO ×2 (07:49→19:34)
[2024-12-09] MEDS: TRILEPTAL 600 MG PO ×2 (07:49→19:35)
[2024-12-09] MEDS: NICODERM TRANSDERMAL TRANSDERM (07:50)
[2024-12-09] MEDS: KLONOPIN 1 MG PO ×2 (07:50→19:34)
[2024-12-09] MEDS: ZYPREXA 10 MG PO ×2 (07:50→19:34)
--- NOTE | 2024-12-09 08:48 | CM ---
Chart reviewed and call placed to [facility] [phone], and spoke with Brittany in Behavioral health unit at [facility], and Raeann in Crisis unit and they have no beds available.
Plan; To follow up with admissions at [facility] inpatient Behavioral Health Unit.
[2024-12-09] MEDS: KLONOPIN 0.5 MG PO (11:20)
--- NOTE | 2024-12-09 11:57 | W.PN.HOSP.TC ---
Today's Communication/Plan
-
remains medically stable for d/c to inpatient psychiatry pending bed - CM continue attempts to place
Assessment / Plan
Assessment / Plan
49-year-old admitted with suicidal ideations and also intractable seizures. A 302 petition was filed by mom and 3 other extension done here. He left-ran away from the hospital and was brought back by the police. Remained off restrains, taking his
AED. Single episode of elevated temp documented on 12/07/24 with normal WBC, neg chest XR and retaken temp in 1 hour was normal without Tylenol. No suspicion for infection, remains medcially stable for d/c to inpatient psych
A/P:
#Breakthrough seizures
Probable breakthrough seizure secondary to noncompliance with medicines. Patient stated that he does not like Topamax however he was taking it. Mom Says he wasn't taking it.
Patient has a vagal nerve stimulator placed in 2013 and changed in 2023
Follows up with Dr. Huan Copeland at [facility]
Per discussion with neurology vagal nerve stimulator interrogation-noted multiple seizure activities
Continue Briviact, Vimpat, Klonopin, Trileptal.
Per discussion with neurology it may be difficult to control his seizures completely.
Patient has not had a seizure for several days now
Maintain 1:1
Off Precedex
Was taken off of restraints when patient eloped.
Pt on 303 extension.
Off restraints
Ketamine infusion stopped
#Bipolar Disease
Psych following. Zyprexa started.
#Marijuana use
#Nicotine dependency
#Hx of lcohol abuse
#Hx of drug abuse
urine drug screen positive for marijuana
counseled on cessation
Nicoderm prn
DVT ppx loveox
Full code
I have spent at least 38min reviewing chart, test results, communication with consultants and providing direct patient care
Anticipated Discharge: Today
Subjective/Interval History
-
Date of Service: December 09, 2024
Objective Data
-
Vital Signs:
Vital Signs
Temp Pulse Resp BP Pulse Ox
97.7 F 57 16 129/80 98
12/09/24 07:02 12/09/24 07:02 12/09/24 07:02 12/09/24 07:02 12/09/24 07:02
I&O
12/08/24 12/09/24 12/10/24
06:59 06:59 06:59
Intake Total 1879 / 1679
Balance 1879
Review of Systems
-
History Source: Patient
All other systems: Reviewed and negative
Physical Exam
-
General: No Apparent Distress
HEENT: Normocephalic
Skin: Warm
Neuro: Awake, Alert, Oriented and AO x 3
Psych: Anxious; Negative Intact Judgement/Insight
--- NOTE | 2024-12-09 14:21 | W.PN.UPDATE ---
Update Note
Progress Note Update
Pt seen & evaluated at bedside, chart reviewed. Pt sitting up comfortably, throughout interview several times jumps up to demonstrate how healthy he is (touching his touch, flexing, etc) however is understanding that he is on a 303 and not getting
discharged today. Is pleasant and cooperative, though labile at times - circumstantial and logorrheic, poor insight as to why he is hospitalized. Admits that he wants to leave hospital so that he can use THC - provided psychoed as to risks of thc
use with psychiatric illness however pt responds with 'I don't care, I wanna have a good time!'. Pt also proceeds to say that had he known he would be on a 303 'I wouldn't have run away in the first place!', however then starts laughing and says he
would indeed have run away anyway.
Very poor insight into behaviors and risks associated, still labile to some degree, logorrheic, some mild PMA, circumstantial - gradually improving overall however, although did need a prn clonazepam yesterday, was redirectable afterward and with no
escalation of agitation as earlier in his admission.
Continue current psychotropics, pt is on a 303 to December 20 - pending transfer to [facility] once bed becomes available
- would defer changes at this time as pt does appear to be gradually improving on current regimen
[2024-12-09 15:34] VITALS: BP 144/84
[2024-12-09] MEDS: LOVENOX SC ×2 (17:03→17:05)
[2024-12-09] MEDS: SENOKOT PO (21:18)
[2024-12-09] MEDS: MELATONIN 10 MG PO (21:18)
[2024-12-09 23:00] VITALS: BP 132/98
[2024-12-10 07:00] VITALS: BP 126/74
[2024-12-10] MEDS: BRIVIACT 150 MG PO ×2 (08:16→19:28)
[2024-12-10] MEDS: VIMPAT 200 MG PO ×2 (08:17→19:28)
[2024-12-10] MEDS: TRILEPTAL PO ×2 (08:17→09:07)
[2024-12-10] MEDS: KLONOPIN 1 MG PO ×2 (08:18→19:28)
[2024-12-10] MEDS: NEURONTIN 400 MG PO ×2 (08:18→19:28)
[2024-12-10] MEDS: MAGNESIUM OXIDE PO (08:18)
[2024-12-10] MEDS: NICODERM TRANSDERMAL TRANSDERM (08:18)
[2024-12-10] MEDS: MIRALAX PO (08:18)
[2024-12-10] MEDS: ZYPREXA PO ×2 (08:18→09:08)
[2024-12-10] MEDS: MAGNESIUM OXIDE 500 MG PO (08:51)
--- NOTE | 2024-12-10 09:03 | PTCARENOTE ---
this patient is adamantly refusing to take zyprexa or Trileptal, attempted multiple times to get them to agree to take them but patient continues to refuse. Patient states trileptal makes them dizzy and for zyrexa, they've 'heard the side effects
from the commercials and I don't want that st. I just want to go home and smoke pot'
--- NOTE | 2024-12-10 09:12 | CM ---
Addendum entered by Carmen Tuttle 12/10/24 11:26:
CM received return call from [place] at [facility], confirmed no beds today, call tomorrow for bed availability ([phone]).
Original Note:
CM reviewed chart, placed call to [facility] # [phone] for bed availability, informed no beds currently but that may change throughout the day, CM will call back later today. Clinicals faxed to [phone].
Plan; follow up with [facility] for bed availability, patient on 303
[2024-12-10] MEDS: ZYPREXA 10 MG PO ×2 (11:34→19:28)
[2024-12-10] MEDS: TRILEPTAL 600 MG PO ×2 (11:41→19:28)
[2024-12-10] MEDS: KLONOPIN 0.5 MG PO (12:55)
[2024-12-10 15:00] VITALS: BP 116/67
--- NOTE | 2024-12-10 15:31 | W.PN.UPDATE ---
Update Note
Progress Note Update
Pt seen, chart reviewed. Pt alert, talkative with pressured speech, tangential thought process. Pt trying to convince the commercial lines underwriter that he is healthy/strong/stable. He denies SI. Pt removed his shirt, talked about his Vagus nerve stimulator,
flexed his muscles to show he is healthy. Pt not threatening or agitated. He reports being on SSDI due to seizure d/o. Pt refused Zyprexa this morning, denies being on it despite records showing he has been taking the current dose since 12/04. Pt
states he was an ad on TV about the risks (unlikely, since generic medications are not advertised); when asked pt stated 'withdrawal.' Pt states he prefers [facility], states he was told he needs a strain with less THC.
Imp: Unspecified Bipolar d/o; on 303 11/30/24 for up to 20 days inpatient tx
Rec: continue Zyprexa; continue inpatient psych placement effort
will follow
--- NOTE | 2024-12-10 16:16 | W.PN.HOSP.TC ---
Today's Communication/Plan
-
Discharge when a psyche bed is secured.
Assessment / Plan
Assessment / Plan
49-year-old admitted with suicidal ideations and also intractable seizures. A 302 petition was filed by mom and 3 other extension done here. He left-ran away from the hospital and was brought back by the police. Remained off restrains, taking his
AED. Single episode of elevated temp documented on 12/07/24 with normal WBC, neg chest XR and retaken temp in 1 hour was normal without Tylenol. No suspicion for infection, remains medcially stable for d/c to inpatient psych
Pleasant awake and alert
Cardiovascular system S1-S2 appreciated
Chest clear to auscultation
Abdomen soft and nontender
A/P:
# Tonic-clonic Movements with Teeth grinding.
Seizures on EEG
Also not sure if this is postictal psychosis
Probable breakthrough seizure secondary to noncompliance with medicines. Patient stated that he does not like Topamax however he was taking it. Mom Says he wasn't taking it.
Patient has a vagal nerve stimulator placed in 2013 and changed in 2023
Follows up with Dr. Huan Copeland at [place]
Per discussion with neurology vagal nerve stimulator interrogation-noted multiple seizure activities
Neurology and psychiatry evaluation appreciated
Mom states that patient is supposed to be on 400 mg twice daily of Neurontin.
Continue Briviact, Vimpat, Klonopin, Trileptal.
Per discussion with neurology it may be difficult to control his seizures completely.
Patient has not had a seizure for several days now
Maintain 1:1
Off Precedex
Pt on 303 extension.
Off restraints
Ketamine infusion started on 12/02/2024 and stopped on 12/03/[address] Rodriguez speaking with Katty Bianchi, [facility] [place] neuro to update.
# Bipolar Disease- Psyche following. Zyprexa started.
# Marijuana use-urine drug screen positive for marijuana
# Smoker- cessation Counselling. Smokes almost half a pack a day. Continue nicotine patch
# Alcohol abuse and stopped and Sober for 2 years as of october
# H/O Drug abuse in the past per mom
# DVT prophylaxis-Lovenox
# Full code
D/W RN
D/W Case management
Spoke to mother and updated. She is very thankful of the patient's care
Anticipated Discharge: Within 24 hours
Subjective/Interval History
-
Date of Service: December 10, 2024
Objective Data
-
Vital Signs:
Vital Signs
Temp Pulse Resp BP Pulse Ox
97.8 F 77 18 116/67 96
12/10/24 15:00 12/10/24 15:00 12/10/24 15:00 12/10/24 15:00 12/10/24 15:00
I&O
12/09/24 12/10/24 12/11/24
06:59 06:59 06:59
Intake Total 1680 / 1680 2880 / 2880
Balance 1680 / 1680 2880 / 2880
[2024-12-10] MEDS: LOVENOX SC (17:52)
--- NOTE | 2024-12-10 17:54 | W.PN.NEURO.1 ---
Today's Communication / Plan
-
.
Subjective/Objective
Subjective Data
Date of Service: December 10, 2024
Reason for Consult: Encephalopathy, epilepsy management.
Neurology follow-up note.
This is a 49-year-old man who presented to [facility] on 11/28/2024 with seizure cluster. Mr. James left the hospital AMA to be returned by police on 12/01/2024. Following recent hospitalization his Briviact was increased to 150 mg
twice daily, Topamax was stopped, and he was continued on Vimpat 200 BID, Trileptal 600 BID and Klonopin.
According to patient's mom [facility]. [facility] has not been taking his medications consistently. She has been filling in prescriptions for him regularly.
I saw the patient in May 2024 for seizure cluster clonazepam 1 mg twice daily, Briviact 100 mg twice daily, gabapentin 400 mg twice daily and Topamax 50 mg twice daily
PDMP: Clonazepam 1 Mg 60 tablets filled in on 10/31/2024, 11/27/2024, Briviact 100 Mg 60 tablets filled in on 10/28/2024, 09/24/2024. Total private pay-28.
PMH: focal epilepsy, polysubstance addiction.
PSH: VNS
SH: lives in recovery house; on disability, former smoker, h/o incarceration, former construction electrician, uses THC, has a daughter
FH: Unknown
All: Depakote�hearing loss
ROS: Negative for headache, weakness, sensory deficits, chest pain, shortness of breath.
General: Well developed. In no acute distress.
Cardio: Regular rate and rhythm without murmur. Extremities are without cyanosis or edema.
Neuro:
Mental Status: Alert, oriented to name, month, year, date was very close. Impulsive, disinhibited, intermittently agitated. Able to cross midline. No hemineglect.
Cranial Nerves: Pupils are equally round and reactive to light. Horizontal EOMs full. Blinks to threat bilaterally. No ptosis. No nystagmus. V1-V3 intact to light touch and pinprick bilaterally, symmetric. Face symmetric. Normal hearing AU.
The palate elevated well. SCMs and traps 5/5. Tongue midline. No dysarthria.
Motor: All limbs antigravity symmetrically purposefully
Coordination: No tremors, no dysmetria.
Gait: deferred
Assessment and Plan:
I. Focal medical refractory epilepsy
II. Left cerebral hemiatrophy
III. Multifocal encephalopathy
IV. Medication nonadherence.
- Telemetry monitoring
- Seizure precautions
- Continue Clonazepam 1 mg twice daily, Briviact 150 mg twice daily, Trileptal 1600 mg twice daily, Vimpat 200 mg twice daily gabapentin 400 mg twice daily
- No driving
- Please obtain medical records from Huan Copeland MD ([facility]), Carlos Mojica MD
- alley worker, psychiatry follow-up. Would suggest detention placement upon discharge.
- Outpatient neurology follow-up.
- Case was discussed with patient's mother
- Please recall neurology service with any questions or concerns
I personally reviewed all radiology and labs along with past medical records pertinent to current medical problems. Total time spent in patient care is 40 minutes.
Thank you for allowing us to participate in the care of this patient. Please do not hesitate to contact us with any questions or concerns.
Objective Data
Vital Signs
Temp Pulse Resp BP Pulse Ox
36.6 C 77 18 116/67 96
12/10/24 15:00 12/10/24 15:00 12/10/24 15:00 12/10/24 15:00 12/10/24 15:00
Lab Results
12/07/24 07:42
12/07/24 07:42
PT 14.9 Sec (11.4-14.6) H 12/03/24 04:44
INR 1.14 12/03/24 04:44
APTT 31.1 Sec (23.4-35.0) 12/03/24 04:44
Sodium 140 mmol/L (135-145) 12/07/24 07:42
Potassium 4.5 mmol/L (3.5-5.1) 12/07/24 07:42
BUN 22 mg/dl (9-20) H 12/07/24 07:42
Glucose 140 mg/dl (70-99) H 12/07/24 07:42
Calcium 10.0 mg/dl (8.4-10.2) 12/07/24 07:42
Phosphorus 3.3 mg/dl (2.5-4.5) 12/05/24 05:22
Patient Allergies
divalproex sodium (From Depakote) Allergy (Verified 12/01/24 10:55)
pt states he loses his hair
Vital Signs and Labs
-
Vital Signs and Labs:
Vital Signs
Temp Pulse Resp BP Pulse Ox
36.6 C 77 18 116/67 96
12/10/24 15:00 12/10/24 15:00 12/10/24 15:00 12/10/24 15:00 12/10/24 15:00
Lab Results
12/07/24 07:42
12/07/24 07:42
PT 14.9 Sec (11.4-14.6) H 12/03/24 04:44
INR 1.14 12/03/24 04:44
APTT 31.1 Sec (23.4-35.0) 12/03/24 04:44
Sodium 140 mmol/L (135-145) 12/07/24 07:42
Potassium 4.5 mmol/L (3.5-5.1) 12/07/24 07:42
BUN 22 mg/dl (9-20) H 12/07/24 07:42
Glucose 140 mg/dl (70-99) H 12/07/24 07:42
Calcium 10.0 mg/dl (8.4-10.2) 12/07/24 07:42
Phosphorus 3.3 mg/dl (2.5-4.5) 12/05/24 05:22
Medications
-
Medications:
Generic Name Dose Route Start Last Admin
Trade Name Freq PRN Reason Stop Dose Admin
Acetaminophen 650 mg 12/01/24 15:53 12/06/24 10:02
Acetaminophen 325 Mg Tablet PO 12/29/24 15:52 650 mg
Q6HPRN PRN Administration
mild pain/ fever>100.5F
Bisacodyl 10 mg 12/01/24 15:53
Bisacodyl 10 Mg Rectal Suppository RECTAL 12/29/24 15:52
[id number] PRN
constipation
Brivaracetam 150 mg 12/01/24 20:00 12/10/24 08:16
Brivaracetam 50 Mg Tablet PO 12/29/24 19:59 150 mg
BID@0800,2000 MIKE Administration
Clonazepam 1 mg 12/01/24 20:00 12/10/24 08:18
Clonazepam 1 Mg Tablet PO 12/29/24 19:59 1 mg
BID MIKE Administration
Clonazepam 0.5 mg 12/01/24 15:53 12/10/24 12:55
Clonazepam 0.5 Mg Tablet PO 12/29/24 15:52 0.5 mg
Q6HPRN PRN Administration
Agitation
Enoxaparin Sodium 40 mg 12/01/24 18:00 12/10/24 17:52
Enoxaparin Sodium 40 Mg/0.4 Ml Syringe SC 12/29/24 17:59 Not Given
QPM MIKE
Gabapentin 400 mg 12/03/24 20:00 12/10/24 08:18
Gabapentin 400 Mg Capsule PO 12/29/24 19:59 400 mg
BID MIKE Administration
Lacosamide 200 mg 12/03/24 20:00 12/10/24 08:17
Lacosamide (Vimpat) 200 Mg Tablet PO 12/31/24 19:59 200 mg
Q12 MKIE Administration
Magnesium Oxide 500 mg 12/06/24 08:00 12/10/24 08:51
Magnesium Oxide 500 Mg Tablet PO 01/03/25 07:59 500 mg
DAILY MIKE Administration
Melatonin 10 mg 12/03/24 22:00 12/09/24 21:18
Melatonin 5 Mg Tablet PO 12/31/24 21:59 10 mg
HS MIKE Administration
Nicotine 14 mg 12/02/24 08:00 12/10/24 08:18
Nicotine 14 Mg Patch TRANSDERM 12/30/24 07:59 Not Given
DAILY MIKE
Olanzapine 10 mg 12/04/24 12:00 12/10/24 11:34
Olanzapine 5 Mg Tablet PO 01/01/25 11:59 10 mg
BID MIKE Administration
Oxcarbazepine 600 mg 12/01/24 20:00 12/10/24 11:41
Oxcarbazepine 300 Mg Tablet PO 12/29/24 19:59 600 mg
BID MIKE Administration
Polyethylene Glycol 17 grams 12/02/24 08:00 12/10/24 08:18
Polyethylene Glycol Powder 17 Grams Packet PO 12/30/24 07:59 Not Given
DAILY MIKE
Polyethylene Glycol 17 grams 12/01/24 15:53
Polyethylene Glycol Powder 17 Grams Packet PO 12/29/24 15:52
DAILYPRN PRN
constipation
Senna/Docusate Sodium 1 tablet 12/01/24 15:53
Docusate W/Senna (Kim-Colace) Tablet PO 12/29/24 15:52
BIDPRN PRN
constipation
Sennosides 8.6 mg 12/01/24 22:00 12/09/24 21:18
Sennosides (Senokot) 8.6 Mg Tablet PO 12/29/24 21:59 Not Given
HS MIKE
Sodium Chloride 0 flush 12/01/24 17:00
Sodium Chloride 0.9% (Flush) Syringe IV 12/29/24 16:59
PER PROTOCOL MIKE
Sodium Chloride 0.5 ml 12/01/24 16:29
Nss (Pf) 10 Ml Vial For Ativan 1 Mg Dose IV 12/29/24 16:28
Q4HPRN PRN
IV LORAZEPAM DILUTION
Home Medications
-
Home Medications
brivaracetam 100 mg tablet (Briviact) 150 mg PO BID@0800,2000 Seizures 05/29/22
gabapentin 400 mg capsule 400 mg PO BID Neurological Condition 06/11/24
clonazepam 1 mg tablet 1 mg PO BID Seizures 11/28/24
clonazepam 0.5 mg tablet 0.5 mg PO Q6HPRN PRN Agitation #0 tabs 12/05/24
lacosamide 200 mg tablet 200 mg PO Q12 Seizures #0 tabs 12/05/24
magnesium oxide 500 mg PO DAILY Electrolyte Repletion #0 tabs 12/05/24
melatonin 5 mg tablet 10 mg (2 x 5 mg) PO HS Sleep #0 tabs 12/05/24
nicotine 14 mg/24 hr daily transdermal patch 14 mg transdermal DAILY Smoking cessation #0 ea 12/05/24
olanzapine 5 mg tablet 10 mg (2 x 5 mg) PO BID Mental Health/Anxiety #0 tabs 12/05/24
oxcarbazepine 300 mg tablet 600 mg (2 x 300 mg) PO BID Seizures #0 tabs 12/05/24
polyethylene glycol 3350 17 gram oral powder packet 17 g PO DAILY Constipation #0 ea 12/05/24
[2024-12-10] MEDS: SENOKOT PO (21:08)
[2024-12-10] MEDS: MELATONIN PO (21:49)
[2024-12-11 07:05] VITALS: BP 142/86
[2024-12-11] MEDS: MIRALAX PO (07:44)
[2024-12-11] MEDS: VIMPAT 200 MG PO ×2 (07:44→19:23)
[2024-12-11] MEDS: NEURONTIN 400 MG PO ×2 (07:45→19:23)
[2024-12-11] MEDS: MAGNESIUM OXIDE 500 MG PO (07:45)
[2024-12-11] MEDS: TRILEPTAL 600 MG PO ×2 (07:45→19:23)
[2024-12-11] MEDS: KLONOPIN 1 MG PO ×2 (07:45→19:23)
[2024-12-11] MEDS: ZYPREXA 10 MG PO ×2 (07:45→19:23)
[2024-12-11] MEDS: BRIVIACT 150 MG PO ×2 (07:45→19:23)
[2024-12-11] MEDS: NICODERM TRANSDERMAL TRANSDERM (07:46)
--- NOTE | 2024-12-11 08:34 | CM ---
Addendum entered by Carmen Tuttle 12/11/24 14:23:
CM faxed additional referrals to [facility] and [facility]. CM spoke with [facility], no beds currently, call in a.m. CM spoke with [facility], no beds currently, will call if any discharges. CM received return call from [facility]- unable to accept patient,
too medically acute.
Addendum entered by Carmen Tuttle 12/11/24 11:07:
CM received return call from [place] at [facility], no beds available today. Call to [facility], spoke with admissions, will call CM back regarding bed availability. CM spoke with [facility], faxed updated clinicals. Return call received from [facility],
unable to accept.
Original Note:
CM reviewed chart, call placed to [facility] at [facility] to identify if beds available ([phone]), voicemail left. CM will follow up with [facility] pending bed availability.
Plan; [facility] pending bed availability
--- NOTE | 2024-12-11 11:46 | W.PN.UPDATE ---
Update Note
Progress Note Update
Patient seen chart reviewed. spoke with cm and patient's mother at length. the patient is much the same. there was a short period of time when he was refusing to take zyprexa as he felt dizzy but now he is back to taking it as prescribed and says
he is no longer dizzy. he remains without any insight into his illness. he does say he wants to go home and seems to have forgotten all of the reasons why he may not be able to go home. i spoke to his mom who until now has insisted he cannot go
home. i presented her with the reality of the current situation which is that we have been unable to find a bed for him and there are only eight days remaining on his commitment. she presented all of the reasons why she feels we need to try and
extend the commitment but i am not sure we will succeed. i also suggested that she consider a pfa as she does fear for her safety if he gets angry at her but making that decision is not easy for her and i suspect from what she is saying that she
will allow him to come home if we cannot find a bed for him. she verified that he does NOT have an appartment even though he keeps talking as though he does. he was evicted from that place and the roommate he was sharing with whom he still talks to
is in a facility currently. asked naveen to talk with diversified crops farmworker britney to see if there are any other possible options for sha
[2024-12-11] MEDS: KLONOPIN 0.5 MG PO (12:55)
--- NOTE | 2024-12-11 14:15 | W.PN.HOSP.TC ---
Today's Communication/Plan
-
medically stable for discharge
No places yet
Add routine labs
Assessment / Plan
Assessment / Plan
49-year-old admitted with suicidal ideations and also intractable seizures. A 302 petition was filed by mom and 3 other extension done here. He left-ran away from the hospital and was brought back by the police. Remained off restrains, taking his
AED. Single episode of elevated temp documented on 12/07/24 with normal WBC, neg chest XR and retaken temp in 1 hour was normal without Tylenol. No suspicion for infection, remains medcially stable for d/c to inpatient psych
sleepy
Cardiovascular system S1-S2 appreciated
Chest clear to auscultation
Abdomen soft and nontender
A/P:
# Tonic-clonic Movements with Teeth grinding.
Seizures on EEG
Probable breakthrough seizure secondary to noncompliance with medicines. Patient stated that he does not like Topamax however he was taking it. Mom Says he wasn't taking it.
Patient has a vagal nerve stimulator placed in 2013 and changed in 2023
Follows up with Dr. Huan Copeland at [facility]
Per discussion with neurology vagal nerve stimulator interrogation-noted multiple seizure activities
Neurology and psychiatry evaluation appreciated
Mom states that patient is supposed to be on 400 mg twice daily of Neurontin.
Continue Briviact, Vimpat, Klonopin, Trileptal.
Per discussion with neurology it may be difficult to control his seizures completely.
Patient has not had a seizure for several days now
Maintain 1:1
Off Precedex
Pt on 303 extension.
Off restraints
Ketamine infusion started on 12/02/2024 and stopped on 12/03/[address] Rodriguez speaking with Katty Bianchi, [facility] neuro to update.
# Bipolar Disease- Psyche following. Zyprexa started.
# Marijuana use-urine drug screen positive for marijuana
# Smoker- cessation Counselling. Smokes almost half a pack a day. Continue nicotine patch
# Alcohol abuse and stopped and Sober for 2 years as of october
# H/O Drug abuse in the past per mom
# DVT prophylaxis-Lovenox
# Full code
D/W Case management
12/10/24-Spoke to mother and updated. She is very thankful of the patient's care
Anticipated Discharge: Within 24 hours
Subjective/Interval History
-
Date of Service: December 11, 2024
Objective Data
-
Vital Signs:
Vital Signs
Temp Pulse Resp BP Pulse Ox
97.9 F 61 16 142/86 99
12/11/24 07:05 12/11/24 07:05 12/11/24 07:05 12/11/24 07:05 12/11/24 07:05
I&O
12/10/24 12/11/24 12/12/24
06:59 06:59 06:59
Intake Total 2880 / 2880 960 / 960
Balance 2880 / 2880 960 / 960
--- NOTE | 2024-12-11 14:50 | W.PN.UPDATE ---
Update Note
Progress Note Update
patient unhappy at being awakened for labs this afternoon. i had come up to talk to him about my conversation with his mother. he protests that he wants to go home insisting his mother will take him which she will not at this point and that he would
rather be in [facility] than in a hospital. he did calm down somewhat . said he did not want to take ativan which i ordered. i did add a prn of ativan for severe agitation since it works faster than the klonopin prn which he had said in the past he
prefers.
[2024-12-11] MEDS: ATIVAN 2 MG PO (15:09)
[2024-12-11 16:34] VITALS: BP 140/93
[2024-12-11] MEDS: LOVENOX SC (17:46)
[2024-12-11] MEDS: SENOKOT PO (21:14)
[2024-12-11] MEDS: MELATONIN PO (21:14)
[2024-12-11 23:00] VITALS: BP 124/74
--- NOTE | 2024-12-12 04:19 | DOWNTIME ---
Addendum entered by Geovanna Stewart RN 12/12/24 14:17:
Downtime was 12/12/2024 from 0100 to 12/12/2024 at 0415
Original Note:
There was a [employer] Client Order Processing Clerk Downtime on 12/11/2024 from 0100 to 12/12/2024 at 0415. Downtime documentation of patient's care, including medication administrations, has been reconciled in the electronic record per guidelines. Refer to the
patient's paper chart under the miscellaneous tab to see printed paper medication records and downtime forms.
[2024-12-12 07:11] VITALS: BP 126/68
[2024-12-12] MEDS: VIMPAT 200 MG PO ×2 (07:42→20:06)
[2024-12-12] MEDS: NEURONTIN 400 MG PO ×2 (07:42→20:06)
[2024-12-12] MEDS: KLONOPIN 1 MG PO ×2 (07:42→20:06)
[2024-12-12] MEDS: TRILEPTAL 600 MG PO ×2 (07:42→20:06)
[2024-12-12] MEDS: ZYPREXA 10 MG PO ×2 (07:42→20:07)
[2024-12-12] MEDS: BRIVIACT 150 MG PO ×2 (07:42→20:05)
[2024-12-12] MEDS: MAGNESIUM OXIDE 500 MG PO (07:42)
[2024-12-12] MEDS: MIRALAX PO (07:43)
[2024-12-12] MEDS: NICODERM TRANSDERMAL TRANSDERM (07:43)
--- NOTE | 2024-12-12 08:52 | CM ---
Addendum entered by Carmen Tuttle 12/12/24 16:07:
CM received call from [facility]- unable to accept. CM spoke with [facility]- no beds, call in AM. Clinicals faxed to [facility]. CM spoke with [facility], no beds.
Addendum entered by Carmen Tuttle 12/12/24 10:24:
Updated clinicals faxed to [facility], and [facility]. CM spoke with patients mother, upset regarding no accepting facility for patient. Mother reports patient cannot return home upon discharge, patient does not have any additional
friends/family- patients father will not allow patient to stay with him. Patient mothers inquiring about group homes, report patient was working with [facility] to find housing, had multiple seizures the day of the housing interview, was
denied the program. Patient was offered a half-way, denied, and since moved to the bottom of the list. CM will continue to send referrals for inpatient stay, discussed no accepting facilities and unfortunately having a very difficult time finding
an accepting facility for patient.
Original Note:
CM received return call from [facility] and [facility], both unable to accept. Call to Ackley at [facility] for bed availability. CM will continue to send referrals.
Plan; continue bed search, multiple referrals placed with no accepting facility
[2024-12-12] MEDS: KLONOPIN 0.5 MG PO (13:06)
--- NOTE | 2024-12-12 13:38 | W.PN.UPDATE ---
Update Note
Progress Note Update
patient seen chart reviewed. spoke with nursing and with cm. the patient remains much the same. he is angry that he is still here and makes it clear that he wants to leave. he is taking meds as prescribed. he is angry that his mother will not have
him back but says very unpleasant things about her. admits 'i am nice to her face but i hope she dies as i am her only child and will inherit her money'. he refers to her as 'a c---' he is talking to his father at 2 pm this afternoon about
whether he has a place to live. at this point no hospital will have him . he has been turned down every where. i am at this point leaning towards letting him go at the expiration of his commitment which is next . will consult with the
other psychiatrist in making this decision.
--- NOTE | 2024-12-12 14:05 | W.PN.HOSP.TC ---
Today's Communication/Plan
-
Psyche placement.
Assessment / Plan
Assessment / Plan
49-year-old admitted with suicidal ideations and also intractable seizures. A 302 petition was filed by mom and 3 other extension done here. He left-ran away from the hospital and was brought back by the police. Remained off restrains, taking his
AED. Single episode of elevated temp documented on 12/07/24 with normal WBC, neg chest XR and retaken temp in 1 hour was normal without Tylenol. No suspicion for infection, remains medcially stable for d/c to inpatient psych
sleepy
Cardiovascular system S1-S2 appreciated
Chest clear to auscultation
Abdomen soft and nontender
left hand lateral dorsal aspech swelling ( pt punched on something yesterday)
A/P:
# Tonic-clonic Movements with Teeth grinding.
Seizures on EEG
Probable breakthrough seizure secondary to noncompliance with medicines. Patient stated that he does not like Topamax however he was taking it. Mom Says he wasn't taking it.
Patient has a vagal nerve stimulator placed in 2013 and changed in 2023
Follows up with Dr. Huan Copeland at [place]
Per discussion with neurology vagal nerve stimulator interrogation-noted multiple seizure activities
Neurology and psychiatry evaluation appreciated
Mom states that patient is supposed to be on 400 mg twice daily of Neurontin.
Continue Briviact, Vimpat, Klonopin, Trileptal.
Per discussion with neurology it may be difficult to control his seizures completely.
Patient has not had a seizure for several days now
Maintain 1:1
Off Precedex
Pt on 303 extension.
Off restraints
Ketamine infusion started on 12/02/2024 and stopped on 12/03/[address] Rodriguez speaking with Katty Bianchi, JULIO [place] neuro to update.
# Bipolar Disease- Psyche following. Zyprexa started.
# Marijuana use-urine drug screen positive for marijuana
# Smoker- cessation Counselling. Smokes almost half a pack a day. Continue nicotine patch
# Alcohol abuse and stopped and Sober for 2 years as of october
# H/O Drug abuse in the past per mom
# DVT prophylaxis-Lovenox
# Full code
D/W RN
D/W Case management
left message for mom
Pt refused labs yesterday
Now agreeable.
Anticipated Discharge: Within 24 hours
Subjective/Interval History
-
Date of Service: December 12, 2024
Objective Data
-
Labs:
Laboratory Results
12/12/24
08:58
WBC Cancelled
Hgb Cancelled
Hct Cancelled
Plt Count Cancelled
Sodium Cancelled
Potassium Cancelled
Chloride Cancelled
Carbon Dioxide Cancelled
BUN Cancelled
Creatinine Cancelled
Glucose Cancelled
Calcium Cancelled
Vital Signs:
Vital Signs
Temp Pulse Resp BP Pulse Ox
98.1 F 68 20 126/68 98
12/12/24 07:11 12/12/24 07:11 12/12/24 07:11 12/12/24 07:11 12/12/24 07:11
I&O
12/11/24 12/12/24 12/13/24
06:59 06:59 06:59
Intake Total 960 / 960 720 / 720
Balance 960 / 960 720 / 720
[2024-12-12] MEDS: LOVENOX SC (16:55)
[2024-12-12 17:09] LABS: Hematocrit 44.5 % (39.0-52.0); Hemoglobin 15.6 g/dL (13.0-18.0); Mean Corp Hgb Conc. 35.1 g/dL (33.0-37.0); Mean Corpuscular Hgb 30.9 pg (27.0-31.0); Mean Corpuscular Volume 88.1 fL (80.0-94.0); Mean Platelet Volume 8.4 fL (7.4-10.4); Platelet Count 229 10^3/uL (130-400); Red Blood Cell Count 5.05 10^6/uL (4.70-6.10); Red Cell Dist. Width 11.9 % (11.5-14.5); White Blood Cell Count 8.8 10^3/uL (4.8-10.8)
[2024-12-12 17:34] LABS: Blood Urea Nitrogen 24 mg/dl (9-20); Calcium 9.8 mg/dl (8.4-10.2); Carbon Dioxide 30 mmol/L (22-30); Chloride 103 mmol/L (98-107); Estimated Creatinine Clearance 110 ml/min; Glucose 97 mg/dl (70-99); Potassium 4.6 mmol/L (3.5-5.1); Sodium 137 mmol/L (135-145); eGFR > 60.00
[2024-12-12] MEDS: MELATONIN 10 MG PO (20:14)
[2024-12-12] MEDS: SENOKOT PO (20:15)
[2024-12-12 21:57] VITALS: BP 110/77
[2024-12-13 07:00] VITALS: BP 119/75
[2024-12-13] MEDS: MAGNESIUM OXIDE 500 MG PO (08:02)
[2024-12-13] MEDS: BRIVIACT 150 MG PO ×2 (08:02→21:28)
[2024-12-13] MEDS: TRILEPTAL 600 MG PO ×2 (08:03→19:59)
[2024-12-13] MEDS: VIMPAT 200 MG PO ×2 (08:03→19:59)
[2024-12-13] MEDS: KLONOPIN 1 MG PO ×2 (08:03→19:59)
[2024-12-13] MEDS: NICODERM TRANSDERMAL TRANSDERM (08:03)
[2024-12-13] MEDS: MIRALAX PO (08:03)
[2024-12-13] MEDS: ZYPREXA 10 MG PO (08:03)
[2024-12-13] MEDS: NEURONTIN 400 MG PO ×2 (08:04→19:59)
--- NOTE | 2024-12-13 12:53 | W.PN.HOSP.TC ---
Today's Communication/Plan
-
Medically stable for discharge to inpatient psyche.
Assessment / Plan
Assessment / Plan
49-year-old admitted with suicidal ideations and also intractable seizures. A 302 petition was filed by mom and 3 other extension done here. He left-ran away from the hospital and was brought back by the police. Remained off restrains, taking his
AED. Single episode of elevated temp documented on 12/07/24 with normal WBC, neg chest XR and retaken temp in 1 hour was normal without Tylenol. No suspicion for infection, remains medcially stable for d/c to inpatient psych
sleepy
Cardiovascular system S1-S2 appreciated
Chest clear to auscultation
Abdomen soft and nontender
Calm
A/P:
# Tonic-clonic Movements with Teeth grinding.
Seizures on EEG
Probable breakthrough seizure secondary to noncompliance with medicines. Patient stated that he does not like Topamax however he was taking it. Mom Says he wasn't taking it.
Patient has a vagal nerve stimulator placed in 2013 and changed in 2023
Follows up with Dr. Huan Copeland at [place]
Per discussion with neurology vagal nerve stimulator interrogation-noted multiple seizure activities
Neurology and psychiatry evaluation appreciated
Mom states that patient is supposed to be on 400 mg twice daily of Neurontin.
Continue Briviact, Vimpat, Klonopin, Trileptal.
Per discussion with neurology it may be difficult to control his seizures completely.
Patient has not had a seizure for several days now
Maintain 1:1
Off Precedex
Pt on 303 extension.
Off restraints
Ketamine infusion started on 12/02/2024 and stopped on 12/03/[address] Rodriguez speaking with Katty Bianchi, JULIO [place] neuro to update.
He has been very coperative and compliant
# Bipolar Disease- Psyche following. Zyprexa to be continued.
# Marijuana use-urine drug screen positive for marijuana
# Smoker- cessation Counselling. Smokes almost half a pack a day. Continue nicotine patch
# Alcohol abuse and stopped and Sober for 2 years as of october
# H/O Drug abuse in the past per mom
# DVT prophylaxis-Lovenox
# Full code
D/W RN
D/W Case management
D/W mom
Anticipated Discharge: Within 24 hours
Subjective/Interval History
-
Date of Service: December 13, 2024
Objective Data
-
Vital Signs:
Vital Signs
Temp Pulse Resp BP Pulse Ox
97.1 F 55 18 119/75 99
12/13/24 07:00 12/13/24 07:00 12/13/24 07:00 12/13/24 07:00 12/13/24 07:00
I&O
12/12/24 12/13/24 12/14/24
06:59 06:59 06:59
Intake Total 720 / 720 480 / 480
Balance 720 / 720 480 / 480
[2024-12-13] MEDS: KLONOPIN 0.5 MG PO (12:55)
--- NOTE | 2024-12-13 14:29 | W.PN.UPDATE ---
Update Note
Progress Note Update
patient seen chart reviewed. discussed with nursing and cm. the patient is a little more subdued today but he continues to be irritable and often his speech is tangential and rambling. he easily tips over into agitated although he has not been
assaultive. what he says is inconsistent...at one moment he will say as soon as he leaves here he is going to get high and the next moment he says he's done with cigarettes and pot and is going to be sober. he is fixated on leaving one week from
today. dr lang and i continue to discuss whether to file a 304 . at this point i am not sure there are grounds as he has not threatened anyone or himself . although he can get quite agitated very easily and yells things like 'i hate n......' he
has not become assaultive. he has not been in restraints. will increase zyprexa to 15 mg bid in the hope that it reduces his tendency to be mood labile. cm has gotten in touch with his [facility] cm who did assert he has turned down placement in [facility].
will be seen by dr lang tomorrow
[2024-12-13 15:00] VITALS: BP 117/75
--- NOTE | 2024-12-13 15:07 | CM ---
RACHELL reviewed chart, reviewed with Dr. Leal. RACHELL spoke with patients mother to obtain LVF RACHELL- [facility]cell[facility] [phone]. RACHELL spoke with Marcellus, discussed patient was offered [facility] program which patient declined due to the location. Patient has submitted
a mainstream voucher application, however there is an extensive waitlist for housing. CM will continue to send referrals for inpatient facilities, no accepting facilities at this time.
Plan; continue to send referrals, no accepting facility at this time.
--- NOTE | 2024-12-13 16:44 | W.PN.UPDATE ---
Update Note
Progress Note Update
researched the possibility of using long acting injectable zyprexa for this patient who said he would consider it. unfortunately i don't think this is going to work out. long acting zyprexa has a warning re syncope and delirium post injection and
one needs to remain three hours after the injection at the site . it is given q two to four weeks. this would be impractical if not impossible for mr crespo given his impulsivity and general non compliance. as well there is a special rems type
protocol for its use. dr lang aware and will reassess tomorrow.
[2024-12-13] MEDS: LOVENOX SC (18:16)
[2024-12-13] MEDS: SENOKOT 8.6 MG PO (19:59)
[2024-12-13] MEDS: ZYPREXA 15 MG PO (21:27)
[2024-12-13] MEDS: MELATONIN 10 MG PO (21:28)
[2024-12-13 23:34] VITALS: BP 99/54
[2024-12-14 07:15] VITALS: BP 121/72
[2024-12-14] MEDS: ZYPREXA 15 MG PO ×2 (07:47→20:48)
[2024-12-14] MEDS: MIRALAX PO (07:47)
[2024-12-14] MEDS: NICODERM TRANSDERMAL TRANSDERM (07:47)
[2024-12-14] MEDS: BRIVIACT 150 MG PO ×2 (07:49→20:48)
[2024-12-14] MEDS: KLONOPIN 1 MG PO ×2 (07:50→20:48)
[2024-12-14] MEDS: VIMPAT 200 MG PO ×2 (07:50→20:49)
[2024-12-14] MEDS: MAGNESIUM OXIDE 500 MG PO (07:51)
[2024-12-14] MEDS: NEURONTIN 400 MG PO ×2 (07:51→20:49)
[2024-12-14] MEDS: TRILEPTAL 600 MG PO ×2 (07:51→20:49)
--- NOTE | 2024-12-14 14:19 | W.PN.HOSP.TC ---
Today's Communication/Plan
-
discharge planning
Assessment / Plan
Assessment / Plan
49-year-old admitted with suicidal ideations and also intractable seizures. A 302 petition was filed by mom and 3 other extension done here. He left-ran away from the hospital and was brought back by the police. Remained off restrains, taking his
AED. Single episode of elevated temp documented on 12/07/24 with normal WBC, neg chest XR and retaken temp in 1 hour was normal without Tylenol. No suspicion for infection, remains medcially stable for d/c to inpatient psych
sleepy
Cardiovascular system S1-S2 appreciated
Chest clear to auscultation
Abdomen soft and nontender
Calm
A/P:
# Tonic-clonic Movements with Teeth grinding.
Seizures on EEG
Probable breakthrough seizure secondary to noncompliance with medicines. Patient stated that he does not like Topamax however he was taking it. Mom Says he wasn't taking it.
Patient has a vagal nerve stimulator placed in 2013 and changed in 2023
Follows up with Dr. Huan Copeland at [place]
Per discussion with neurology vagal nerve stimulator interrogation-noted multiple seizure activities
Neurology and psychiatry evaluation appreciated
Mom states that patient is supposed to be on 400 mg twice daily of Neurontin.
Continue Briviact, Vimpat, Klonopin, Trileptal.
Per discussion with neurology it may be difficult to control his seizures completely.
Patient has not had a seizure for several days now
Maintain 1:1
Off Precedex
Pt on 303 extension.
Off restraints
Ketamine infusion started on 12/02/2024 and stopped on 12/03/[address] Rodriguez speaking with Katty Bianchi, JULIO [place] neuro to update.
He has been very cooperative and compliant and very respectful
he is proud of himself for not wanting to use Marijuana or wanting to smoke.
He is also very happy he has not had any seizures
# Bipolar Disease- Psyche following. Zyprexa to be continued.
# Marijuana use-urine drug screen positive for marijuana
# Smoker- cessation Counselling. Smokes almost half a pack a day. Continue nicotine patch
# Alcohol abuse and stopped and Sober for 2 years as of october
# H/O Drug abuse in the past per mom
# DVT prophylaxis-Lovenox
# Full code
D/W RN
D/W Case management
Anticipated Discharge: Within 24 hours
Subjective/Interval History
-
Date of Service: December 14, 2024
Objective Data
-
Vital Signs:
Vital Signs
Temp Pulse Resp BP Pulse Ox
97.7 F 53 18 121/72 98
12/14/24 07:15 12/14/24 07:15 12/14/24 07:15 12/14/24 07:15 12/14/24 07:15
I&O
12/13/24 12/14/24 12/15/24
06:59 06:59 06:59
Intake Total 480 / 480
Balance 480 / 480
[2024-12-14] MEDS: KLONOPIN 0.5 MG PO (14:50)
--- NOTE | 2024-12-14 15:05 | W.PN.UPDATE ---
Update Note
Progress Note Update
Pt seen, chart reviewed. Pt alert, talkative with mildly pressured speech, somewhat tangential thought process. Pt appears slightly more stable, overall unchanged from early this week when I saw him on Tuesday. Pt tolerating increased Zyprexa,
denies side effects, has been taking medications consistently. No aggressive behaviors noted this week, some periods of emotional lability. Pt focused on being released back home with his mother, states she needs his assistance. Pt states they had
a good conversation today by phone.
Imp: Unspecified Bipolar d/o; on 303 for up to 20 days inpatient tx- expires next week on 12/20. No psych facilities in the area have accepted this pt; it appears unlikely that he will be transferred.
Rec: continue Zyprexa, hospital stabilization.
will follow
[2024-12-14 15:32] VITALS: BP 114/68
--- NOTE | 2024-12-14 15:50 | CM ---
CM reviewed chart, updated clinicals faxed to [facility] and [facility]. Received return call form [facility], unable to accept patient due to medical concerns. Call to [facility] [phone] to speak to Delegate regarding
multiple referrals placed with no accepting facility, 303 expires 12/20. CM will continue to send updated clinicals to facilities.
Plan; continue to send referrals, patient has been declined by: [facility], [facility], [facility], [facility], [facility], [facility], [place], [facility], [facility], [place], [place]
[2024-12-14] MEDS: LOVENOX SC (18:46)
[2024-12-14] MEDS: SENOKOT PO (20:52)
[2024-12-14] MEDS: MELATONIN 10 MG PO (20:55)
[2024-12-14 23:12] VITALS: BP 90/61
[2024-12-15 07:11] VITALS: BP 133/80
[2024-12-15] MEDS: NEURONTIN 400 MG PO ×2 (07:38→20:07)
[2024-12-15] MEDS: TRILEPTAL 600 MG PO ×2 (07:38→20:08)
[2024-12-15] MEDS: MAGNESIUM OXIDE 500 MG PO (07:38)
[2024-12-15] MEDS: VIMPAT 200 MG PO ×2 (07:38→20:07)
[2024-12-15] MEDS: KLONOPIN 1 MG PO ×2 (07:38→20:08)
[2024-12-15] MEDS: ZYPREXA 15 MG PO ×2 (07:38→20:07)
[2024-12-15] MEDS: BRIVIACT 150 MG PO ×2 (07:38→20:07)
[2024-12-15] MEDS: MIRALAX PO (07:39)
[2024-12-15] MEDS: NICODERM TRANSDERMAL TRANSDERM (07:42)
[2024-12-15] MEDS: KLONOPIN 0.5 MG PO (11:19)
--- NOTE | 2024-12-15 11:28 | W.PN.HOSP.TC ---
Today's Communication/Plan
-
Await placement
Assessment / Plan
Assessment / Plan
49-year-old admitted with suicidal ideations and also intractable seizures. A 302 petition was filed by mom and 3 other extension done here. He left-ran away from the hospital and was brought back by the police. Remained off restrains, taking his
AED. Single episode of elevated temp documented on 12/07/24 with normal WBC, neg chest XR and retaken temp in 1 hour was normal without Tylenol. No suspicion for infection, remains medcially stable for d/c to inpatient psych
sleepy
Cardiovascular system S1-S2 appreciated
Chest clear to auscultation
Abdomen soft and nontender
Calm
A/P:
# Tonic-clonic Movements with Teeth grinding.
Seizures on EEG
Probable breakthrough seizure secondary to noncompliance with medicines. Patient stated that he does not like Topamax however he was taking it. Mom Says he wasn't taking it.
Patient has a vagal nerve stimulator placed in 2013 and changed in 2023
Follows up with Dr. Huan Copeland at [place]
Per discussion with neurology vagal nerve stimulator interrogation-noted multiple seizure activities
Neurology and psychiatry evaluation appreciated
Mom states that patient is supposed to be on 400 mg twice daily of Neurontin.
Continue Briviact, Vimpat, Klonopin, Trileptal.
Per discussion with neurology it may be difficult to control his seizures completely.
Patient has not had a seizure for several days now
Maintain 1:1-patient remained on one-to-one on 12/14/2024 as well. Order renewed
Off Precedex
Pt on 303 extension.
Off restraints for several days
Ketamine infusion started on 12/02/2024 and stopped on 12/03/[address] Rodriguez speaking with Katty Bianchi, JULIO [place] neuro to update.
He has been very cooperative and compliant and very respectful
he is proud of himself for not wanting to use Marijuana or wanting to smoke.
He is also very happy he has not had any seizures
# Bipolar Disease- Psyche following. Zyprexa to be continued.
# Marijuana use-urine drug screen positive for marijuana
# Smoker- cessation Counselling. Smokes almost half a pack a day. Continue nicotine patch
# Alcohol abuse and stopped and Sober for 2 years as of october
# H/O Drug abuse in the past per mom
# DVT prophylaxis-Lovenox
# Full code
D/W RN
D/W 1:1 at bedside
Anticipated Discharge: 24 - 48 hours
Subjective/Interval History
-
Date of Service: December 15, 2024
Objective Data
-
Vital Signs:
Vital Signs
Temp Pulse Resp BP Pulse Ox
97.8 F 49 18 133/80 99
12/15/24 07:11 12/15/24 07:11 12/15/24 07:11 12/15/24 07:11 12/15/24 07:11
I&O
12/14/24 12/15/24 12/16/24
06:59 06:59 06:59
Intake Total 480 / 480 960 / 960
Balance 480 / 480 960 / 960
--- NOTE | 2024-12-15 14:24 | W.PN.UPDATE ---
Update Note
Progress Note Update
Pt seen sitting on side of the bed, alert, calm, cooperative. Pt remains talkative, somewhat tangential/mildly pressured. Status unchanged for the past several days. Pt tolerating Zyprexa- increased 2 days ago, denies side effects, no EPS
evident, has been taking medications consistently. No aggressive behavior noted this week. Pt denies any suicidal or homicidal ideation.
Imp: Unspecified Bipolar d/o; on 303 for up to 20 days inpatient tx- expires next week on 12/20. No psych facilities in the area have accepted this pt; meanwhile he appears to be nearing his baseline state.
Rec: continue Zyprexa, hospital stabilization.
will follow
[2024-12-15 15:10] VITALS: BP 116/73
[2024-12-15] MEDS: LOVENOX SC (17:07)
[2024-12-15] MEDS: MELATONIN 10 MG PO (20:08)
[2024-12-15] MEDS: SENOKOT PO (22:45)
[2024-12-15 23:22] VITALS: BP 137/63
[2024-12-16] MEDS: VIMPAT 200 MG PO ×2 (07:50→20:12)
[2024-12-16] MEDS: ZYPREXA 15 MG PO ×2 (07:50→20:12)
[2024-12-16] MEDS: TRILEPTAL 600 MG PO ×2 (07:50→20:12)
[2024-12-16] MEDS: KLONOPIN 1 MG PO ×2 (07:50→20:13)
[2024-12-16] MEDS: NEURONTIN 400 MG PO ×2 (07:50→20:13)
[2024-12-16] MEDS: BRIVIACT 150 MG PO ×2 (07:50→20:12)
[2024-12-16] MEDS: MAGNESIUM OXIDE 500 MG PO (07:50)
[2024-12-16] MEDS: MIRALAX PO (07:51)
[2024-12-16] MEDS: NICODERM TRANSDERMAL TRANSDERM (07:51)
[2024-12-16 08:36] VITALS: BP 130/70
--- NOTE | 2024-12-16 10:30 | W.PN.UPDATE ---
Update Note
Progress Note Update
reviewed chart. spoke with nursing. nursing reports patient is 'doing great'. since we increased zyprexa he might be a little dizzy according to nursing after he takes it but that is short lived 'ten minutes' and seems to resolve. patient is
reportedly cooperative. walking about the unit. he was sleeping when i attempted to see him and he has expressed great displeasure when i have awakened him in the past so i did not. dr lang notes in his last two visits that patient remains
tangential but overall has cooperated more or less. the plan at present is likely dc on when his commitment ends. i called his mom. mom days he is calling her 15 x daily. mom says he told her this am his father was ill...she called his
father and 'nothing was wrong.' explained to her that sha has always said since i have met him things that were untrue eg that he has an apartment which he does not have. i will ty to see him before i leave today if he wakes up. ptherwise i
will ask dr lang to see him tomorrow. mom is now saying he can come home if he agrees to take meds and see a prescriber at [facility] which i will arrange for him on tuesday.
--- NOTE | 2024-12-16 11:42 | W.PN.UPDATE ---
Update Note
Progress Note Update
returned to see patient who had awakened. he was quite pleasant which is an amazing development. he spoke in a goal directed relatively non pressured speech . there were absolutely NO off color or angry remarks and this was BEFORE i informed him
that his mother had agreed to take him back with some stipulations. mother has agreed to take him back if he signs a 'contract' agreeing to her terms which she will bring in on when we will meet in a family session to discuss. i also
informed him that we will file a 90 day commitment to OUT PATIENT treatment at [facility]. dr lang will file the papers tomorrow. i will then on tuesday set up out pt rx for him at [facility]. of note last week i increase zyprexa to 15 mg bid. in my
opinion this is the reason for the change in his demeanor. we changed nothing else and the change in his presentation is remarkable. hopefully it lasts. he does have some dizziness again which he also had when we inc zyprexa the last time but it
did subside which i hope it will again called mother again to apprise.
[2024-12-16] MEDS: KLONOPIN 0.5 MG PO (12:22)
--- NOTE | 2024-12-16 13:34 | W.PN.HOSP.TC ---
Today's Communication/Plan
-
Psyche placement
Assessment / Plan
Assessment / Plan
49-year-old admitted with suicidal ideations and also intractable seizures. A 302 petition was filed by mom and 3 other extension done here. He left-ran away from the hospital and was brought back by the police. Remained off restrains, taking his
AED. Single episode of elevated temp documented on 12/07/24 with normal WBC, neg chest XR and retaken temp in 1 hour was normal without Tylenol. No suspicion for infection, remains medcially stable for d/c to inpatient psych
Cardiovascular system S1-S2 appreciated
Chest clear to auscultation
Abdomen soft and nontender
Calm
A/P:
# Tonic-clonic Movements with Teeth grinding.
Seizures on EEG
Probable breakthrough seizure secondary to noncompliance with medicines. Patient stated that he does not like Topamax however he was taking it. Mom Says he wasn't taking it.
Patient has a vagal nerve stimulator placed in 2013 and changed in 2023
Follows up with Dr. Huan Copeland at [place]
Per discussion with neurology vagal nerve stimulator interrogation-noted multiple seizure activities
Neurology and psychiatry evaluation appreciated
Mom states that patient is supposed to be on 400 mg twice daily of Neurontin.
Continue Briviact, Vimpat, Klonopin, Trileptal.
Off Topamax
Per discussion with neurology it may be difficult to control his seizures completely.
Patient has not had a seizure for several days now
Maintain 1:1-patient remained on one-to-one on 12/14/2024 as well. Order renewed
Off Precedex
Pt on 303 extension.
Off restraints for several days
Ketamine infusion started on 12/02/2024 and stopped on 12/03/[address] Rodriguez speaking with Katty Bianchi, JULIO [place] neuro to update.
He has been very cooperative and compliant and very respectful
# Bipolar Disease- Psyche following. Zyprexa to be continued-15 mg twice daily dose now
# Marijuana use-urine drug screen positive for marijuana
# Smoker- cessation Counselling. Smokes almost half a pack a day. Continue nicotine patch
# Alcohol abuse and stopped and Sober for 2 years as of october
# H/O Drug abuse in the past per mom
# DVT prophylaxis-I was made aware that patient has been refusing Lovenox. Long discussion with the patient today about blood clots and what it can do. SCDs ordered patient should be wearing them if he is refusing Lovenox.
# Full code
D/W RN
D/W 1:1 at bedside
Left message for mom
Discussed with psychiatry
Anticipated Discharge: 24 - 48 hours
Subjective/Interval History
-
Date of Service: December 16, 2024
Objective Data
-
Vital Signs:
Vital Signs
Temp Pulse Resp BP Pulse Ox
98.3 F 51 16 130/70 100
12/16/24 08:36 12/16/24 08:36 12/16/24 08:36 12/16/24 08:36 12/16/24 08:36
I&O
12/15/24 12/16/24 12/17/24
06:59 06:59 06:59
Intake Total 960 / 960 1440 / 1440 600 / 600
Balance 960 / 960 1440 / 1440 600 / 600
[2024-12-16 15:00] VITALS: BP 128/68
[2024-12-16] MEDS: LOVENOX SC (17:06)
[2024-12-16] MEDS: MELATONIN 10 MG PO (20:12)
[2024-12-16] MEDS: SENOKOT PO (21:38)
[2024-12-16 23:30] VITALS: BP 108/66
[2024-12-17 07:16] LABS: Hematocrit 40.4 % (39.0-52.0); Hemoglobin 14.9 g/dL (13.0-18.0); Mean Corp Hgb Conc. 36.9 g/dL (33.0-37.0); Mean Corpuscular Hgb 30.5 pg (27.0-31.0); Mean Corpuscular Volume 82.8 fL (80.0-94.0); Mean Platelet Volume 8.6 fL (7.4-10.4); Platelet Count 196 10^3/uL (130-400); Red Blood Cell Count 4.88 10^6/uL (4.70-6.10); Red Cell Dist. Width 11.6 % (11.5-14.5); White Blood Cell Count 7.3 10^3/uL (4.8-10.8)
[2024-12-17 07:45] VITALS: BP 141/73
[2024-12-17 07:55] LABS: Blood Urea Nitrogen 14 mg/dl (9-20); Calcium 8.9 mg/dl (8.4-10.2); Carbon Dioxide 25 mmol/L (22-30); Chloride 96 mmol/L (98-107); Estimated Creatinine Clearance > 125 ml/min; Glucose 88 mg/dl (70-99); Potassium 4.7 mmol/L (3.5-5.1); Sodium 127 mmol/L (135-145); eGFR > 60.00
[2024-12-17] MEDS: NICODERM TRANSDERMAL TRANSDERM (08:17)
[2024-12-17] MEDS: MIRALAX PO (08:17)
[2024-12-17] MEDS: MAGNESIUM OXIDE 500 MG PO (08:18)
[2024-12-17] MEDS: VIMPAT 200 MG PO ×2 (08:19→19:38)
[2024-12-17] MEDS: BRIVIACT 150 MG PO ×2 (08:19→19:38)
[2024-12-17] MEDS: TRILEPTAL 600 MG PO ×2 (08:19→19:38)
[2024-12-17] MEDS: NEURONTIN 400 MG PO ×2 (08:19→19:38)
[2024-12-17] MEDS: ZYPREXA 15 MG PO ×2 (08:19→19:38)
[2024-12-17] MEDS: KLONOPIN 1 MG PO ×2 (08:19→19:38)
--- NOTE | 2024-12-17 08:58 | W.PN.HOSP.TC ---
Today's Communication/Plan
-
see A/P
Assessment / Plan
Assessment / Plan
HPI: 49-year-old M admitted with suicidal ideations and also intractable seizures. 302 petition was filed by mom and 3 other extension done here. He eloped from the hospital and was brought back by the police. Remained off restrains, taking his AED.
Single episode of elevated temp documented on 12/07/24 with normal WBC, neg chest XR and repeat temp in 1 hour was normal without Tylenol. No suspicion for infection, remains medically stable, was planned for inpatient psych but now likely dispo to
outpt treatment at [facility].
A/P:
# Tonic-clonic seizure with teeth grinding.
Seizures on EEG
Probable breakthrough seizure secondary to noncompliance with medicines. Patient stated that he does not like Topamax however he was taking it. Mom says he wasn't taking it.
Patient has a vagal nerve stimulator placed in 2013 and changed in 2023
Follows up with Dr. Huan Copeland at [place]
Per discussion with neurology, vagal nerve stimulator interrogation-noted multiple seizure activities
Neurology and psychiatry evaluation appreciated
Mom states that patient is supposed to be on 400 mg twice daily of Neurontin.
Continue Briviact, Vimpat, Klonopin, Trileptal.
Off Topamax
Per discussion with neurology, it may be difficult to control his seizures completely.
Patient has not had a seizure for several days now
Maintain on 1:1, Pt on 303 extension. Off restraints for several days
Ketamine infusion started on 12/02/2024 and stopped on 12/03/[address] Rodriguez speaking with Katty Bianchi, [facility] [place] neuro to update.
Pt has now been very cooperative and compliant and very respectful
Mother has agreed to take him back with some stipulations. She will bring in a 'contract' on for him to sign.
Psych to file a 90 day commitment to OUTPATIENT treatment at [facility]. Psychotropic meds to be provided by Psych upon discharge.
Of noted, zyprexa was increased to 15 mg bid, which likely helped improved pt's demeanor.
# Bipolar Disease
Psych following.
Zyprexa increased to 15 mg bid
# Hyponatremia
monitor
# Marijuana use
urine drug screen positive for marijuana
# Cigarette smoking
Smokes almost half a pack a day. cessation counselling. Continue nicotine patch
# h/o Alcohol abuse and stopped
Sober for 2 years as of october
# H/O Drug abuse in the past per mom
DVT prophylaxis- patient has been refusing Lovenox. SCD if pt agrees
Full code
Anticipated Discharge: > 48 hours
Subjective/Interval History
-
Date of Service: December 17, 2024
Objective Data
-
Labs:
Laboratory Results
12/17/24
06:29
WBC 7.3
Hgb 14.9
Hct 40.4
Plt Count 196
Sodium 127 L
Potassium 4.7
Chloride 96 L
Carbon Dioxide 25
BUN 14
Creatinine 0.7
Glucose 88
Calcium 8.9
Vital Signs:
Vital Signs
Temp Pulse Resp BP Pulse Ox
36.6 C 56 20 141/73 98
12/17/24 07:45 12/17/24 07:45 12/17/24 07:45 12/17/24 07:45 12/17/24 07:45
I&O
12/16/24 12/17/24 12/18/24
06:59 06:59 06:59
Intake Total 1440 / 1440 840 / 840
Balance 1440 / 1440 840 / 840
Review of Systems
-
History Source: Patient
All other systems: Reviewed and negative
Physical Exam
-
General: Well Developed, Well Nourished, No Apparent Distress, Comfortable and Conversant
HEENT: Normocephalic and Atraumatic
Respiratory: Clear to Auscultation and Non Labored Respirations; Negative Accessory Resp Muscle Use
Cardiac: Regular Rhythm
Skin: Warm
Neuro: Awake and Alert
Psych: Calm; Negative Intact Judgement/Insight
Data Reviewed
-
Labs: Labs Reviewed by me
--- NOTE | 2024-12-17 11:58 | PTCARENOTE ---
Assumed care of pt from previous nurse. Pt denies pain. 1:1 at bedside. DC planning in place. Call kimbrough is within reach, pt rings daniel. and 1:1 assists as well. will cont to monitor.
[2024-12-17] MEDS: KLONOPIN 0.5 MG PO (12:39)
--- NOTE | 2024-12-17 13:10 | W.PN.UPDATE ---
Update Note
Progress Note Update
Pt seen and reviewed with case management. Pt alert, calm, cooperative. Pt remains talkative, somewhat tangential/mildly pressured. Status unchanged for the past week. Pt tolerating Zyprexa, denies side effects, no EPS evident, has been taking
medications consistently. No aggressive behavior noted this week. Pt denies any suicidal or homicidal ideation. Discussed case with Dr Leal over the weekend; given pt's hx and non-adherence with mental health and seizure meds, plan is to file
a 304 for outpatient tx.
Imp: Unspecified Bipolar d/o; on 303 for up to 20 days inpatient tx- expires 12/20. No psych facilities in the area have accepted this pt; meanwhile he appears to be nearing his baseline state; will file a 304 for Outpatient treatment.
Rec: continue Zyprexa, current mgt.
will follow
[2024-12-17 15:00] VITALS: BP 124/72
--- NOTE | 2024-12-17 15:01 | CM ---
Addendum entered by Carmen Tuttle 12/17/24 16:06:
Hearing scheduled for 10:00 a.m. hearing tomorrow
Original Note:
CM reviewed chart, reviewed with Dr. Malone, plan to file for 304 for outpatient treatment, patient seen and aware of rights, provided with copy, declining at this time. Scanned documents sent to [email or web address], ,
phone call to [phone], spoke with Jay, confirmed documents received. CM placed call to [phone], awaiting time for hearing for tomorrow. CM spoke with patients mother, Ene, plan to come to hospital for meeting with .
Mel, Mother will write contract with stipulations for patient in order to return home (no smoking cigarettes, no smoking marijuana). CM will continue to follow for all discharge planning needs.
Plan; await time for 304 hearing tomorrow
[2024-12-17] MEDS: LOVENOX SC (17:35)
[2024-12-17] MEDS: MELATONIN 10 MG PO (21:28)
[2024-12-17] MEDS: SENOKOT 8.6 MG PO (21:28)
[2024-12-17 22:53] VITALS: BP 98/57
[2024-12-18 07:00] VITALS: BP 122/77
[2024-12-18] MEDS: NICODERM TRANSDERMAL TRANSDERM (08:10)
[2024-12-18] MEDS: MIRALAX PO (08:10)
[2024-12-18] MEDS: MAGNESIUM OXIDE 500 MG PO (08:16)
[2024-12-18] MEDS: BRIVIACT 150 MG PO (08:16)
[2024-12-18] MEDS: VIMPAT 200 MG PO (08:16)
[2024-12-18] MEDS: ZYPREXA 15 MG PO (08:17)
[2024-12-18] MEDS: TRILEPTAL 600 MG PO (08:18)
[2024-12-18] MEDS: KLONOPIN 1 MG PO (08:18)
[2024-12-18] MEDS: NEURONTIN 400 MG PO (08:18)
[2024-12-18 08:43] LABS: Blood Urea Nitrogen 14 mg/dl (9-20); Calcium 9.4 mg/dl (8.4-10.2); Carbon Dioxide 31 mmol/L (22-30); Chloride 96 mmol/L (98-107); Estimated Creatinine Clearance > 125 ml/min; Glucose 91 mg/dl (70-99); Magnesium 1.7 mg/dl (1.6-2.3); Potassium 4.8 mmol/L (3.5-5.1); Sodium 130 mmol/L (135-145); eGFR > 60.00
--- NOTE | 2024-12-18 09:26 | W.PN.HOSP.TC ---
Addendum entered and electronically signed by Kristy Serna MD 12/19/24 13:03:
Total DC time was 45 minutes
Original Note:
Today's Communication/Plan
-
see A/P
Assessment / Plan
Assessment / Plan
HPI: 49-year-old M admitted with suicidal ideations and also intractable seizures. 302 petition was filed by mom and 3 other extension done here. He eloped from the hospital and was brought back by the police. Remained off restrains, taking his AED.
Single episode of elevated temp documented on 12/07/24 with normal WBC, neg chest XR and repeat temp in 1 hour was normal without Tylenol. No suspicion for infection, remains medically stable, was planned for inpatient psych but now likely dispo to
outpt treatment at [facility].
A/P:
# Tonic-clonic seizure with teeth grinding.
Seizures on EEG
Probable breakthrough seizure secondary to noncompliance with medicines. Patient stated that he does not like Topamax however he was taking it. Mom says he wasn't taking it.
Patient has a vagal nerve stimulator placed in 2013 and changed in 2023
Follows up with Dr. Huan Copeland at [place]
Per discussion with neurology, vagal nerve stimulator interrogation-noted multiple seizure activities
Ketamine infusion started on 12/02/2024 and stopped on 12/03/[address] Rodriguez speaking with Katty Bianchi NP [place] neuro to update.
Neurology and psychiatry evaluation appreciated
Mom states that patient is supposed to be on 400 mg twice daily of Neurontin.
Continue Briviact, Vimpat, Klonopin, Trileptal, Neurontin
Off Topamax
Per discussion with neurology, it may be difficult to control his seizures completely. Patient has not had a seizure for several days now
# Bipolar Disease
Psych following.
Zyprexa increased to 15 mg bid, which likely helped improved pt's demeanor.
Also on Briviact, Vimpat, Klonopin, Trileptal, Neurontin for seizure
Maintain on 1:1, Pt on 303 extension. Off restraints for several days. Pt has now been very cooperative and compliant and very respectful
Mother has agreed to take him back with some stipulations. She will bring in a 'contract' on for him to sign.
Psych to file a 90 day commitment to OUTPATIENT treatment at [facility]. Psychotropic meds to be provided by Psych upon discharge.
# Hyponatremia
monitor
# Marijuana use
urine drug screen positive for marijuana
# Cigarette smoking
Smokes almost half a pack a day. cessation counselling. Continue nicotine patch
# h/o Alcohol abuse and stopped
Sober for 2 years as of october
# H/O Drug abuse in the past per mom
DVT prophylaxis- patient has been refusing Lovenox. SCD if pt agrees
Full code
Anticipated Discharge: 24 - 48 hours
Subjective/Interval History
-
Date of Service: December 18, 2024
Objective Data
-
Labs:
Laboratory Results
12/18/24
07:38
Sodium 130 L
Potassium 4.8
Chloride 96 L
Carbon Dioxide 31 H
BUN 14
Creatinine 0.6 L
Glucose 91
Calcium 9.4
Vital Signs:
Vital Signs
Temp Pulse Resp BP Pulse Ox
36.6 C 54 14 122/77 100
12/18/24 07:00 12/18/24 07:00 12/18/24 07:00 12/18/24 07:00 12/18/24 07:00
I&O
12/17/24 12/18/24 12/19/24
06:59 06:59 06:59
Intake Total 840 / 840
Balance 840 / 840
Review of Systems
-
History Source: Patient
All other systems: Reviewed and negative
Physical Exam
-
General: Well Developed, Well Nourished, No Apparent Distress, Comfortable and Conversant
HEENT: Normocephalic and Atraumatic
Respiratory: Clear to Auscultation and Non Labored Respirations; Negative Accessory Resp Muscle Use
Cardiac: Regular Rhythm
Skin: Warm
Neuro: Awake and Alert
Psych: Calm and Intact Judgement/Insight (somewhat)
Data Reviewed
-
Labs: Labs Reviewed by me
[2024-12-18] MEDS: KLONOPIN 0.5 MG PO (12:07)
--- NOTE | 2024-12-18 12:46 | CM ---
Addendum entered by Carmen Tuttle 12/18/24 14:59:
Patient seen, provided with shoes and clothes, now agreeable to Lyft ride, confirmed home address. Obtained patients cell phone [phone], will contact patient when outpatient set up through [facility]. IMM verbally reviewed with patient, provided with
copy, placed in chart. Call to patients mother, aware of discharge and patient returning home via Lyft. Hearing results placed on chart. CM received return call from Janessa at [facility], CM discussed need for medication management and setting up
outpatient treatment as outcome of 304 hearing, CM transferred to April at [facility]. Another VM left for April at [facility] in regards to PHP set up regarding 304 outcome, additional VM left to [phone], Director at [facility] PHP program.
Plan; Lyft ride home, outpatient treatment through [facility] to be set up
Addendum entered by Carmen Tuttle 12/18/24 13:40:
Order faxed to [facility]. Patient seen ambulating halls with 1:1, reports he wants to walk home. CM discussed they can set up Lyft for patient, patient declining, reports he wants the exercise. CM discussed current temperature outside, patient continues
to decline Lyft ride and getting agitated with offer for Lyft ride. Call to patients mother to discuss discharge and patient refusing Lyft, left VM. VM left for Marcellus [facility] RACHELL on patient discharge.
Original Note:
CM reviewed chart, patient seen bedside with Dr. Malone, 304 hearing held today 10:00 a.m. with agreement for outpatient therapy. CM spoke with patients CM through [facility], Marcellus Baxter, will speak with [facility] about setting up partial program for
patient. CM placed call to [facility], directed to April in partial program, left voicemail regarding referral for patient to be set up with partial. Call to patients mother, discussed outcome of 304, discussed patient stating he is going to leave, mother
unable to provide transport home, patient denies having friends/family to provide transport, stating he is going to walk home. CM discussed there is no discharge order at this time, working out setting up patient with outpatient start date, mother
not able to transport patient home. CM awaiting order from [facility], will fax to [facility] once received. CM will continue to follow for all discharge planning needs.
Plan; home with mother, outpatient follow up at [facility], awaiting partial program start date
Marcellus Baxter ([facility] CM) requesting discharge paperwork faxed upon d/c : [phone]
--- NOTE | 2024-12-18 13:05 | W.DCSUMMARY ---
Discharge Summary
Discharge Data
Date of Admission: 12/01/24
Date of Discharge: 12/18/24
-
Pending Results: No
Hospital Course
Principal Diagnosis:
Tonic-clonic seizure
Bipolar mood disorder
Chronic Diagnoses:�
Marijuana use
Cigarette smoking
History of Alcohol abuse and stopped. Sober for 2 years as of october
History of Drug abuse in the past per mom
Consultations:�
Psychiatrist
Procedures:�
None
Clinical course:�
This is a 49-year-old male with past medical history as stated above, who presented with suicidal ideations and intractable seizures. His mother filed for 302 petition with 3 extension during this hospital stay.
Problem 1:
Tonic-clonic seizure with teeth grinding.
Seizures on EEG
Probable breakthrough seizure secondary to noncompliance with medicines.
Patient has a vagal nerve stimulator placed in 2013 and changed in 2023
Per neurology, vagal nerve stimulator interrogation noted multiple seizure activities.
He did receive Ketamine infusion during this hospital stay which was subsequently discontinued.
He was put back on Briviact, Vimpat, Klonopin, Trileptal, Neurontin, but off Topamax, and had been seizure-free.
He can continue to use these antiepileptic drugs following discharge.
Problem 2:
Bipolar Disease.
Zyprexa was increased to 15 mg bid, which likely helped the pt's demeanor (he had been largely cooperative and compliant).
He has been informed to follow-up outpatient at [facility].
As for the rest of his medical problems, they were stable during his hospital stay.
Discharge Plan
-
Patient Disposition: Home with Home Care
Discharge Diagnosis/Procedures: Seizure disorder,
Bipolar mood disease,
Marijuana use,
Smoking
Condition: Fair
Diet: As tolerated
Activity: As tolerated
Driving Restrictions: No driving
Referrals:
UNKNOWN - PT DOES,NOT KNOW [Family Provider] - in less than 1 week
Additional Discharge Medication Instructions: Topamax Stopped.
Prescriptions:
New
clonazepam 0.5 mg Tablet
0.5 mg PO Q6HPRN PRN (Reason: Agitation) Qty: 0 0RF
magnesium oxide 500 mg magnesium Tablet
500 mg PO DAILY Qty: 0 0RF
melatonin 5 mg Tablet
10 mg PO HS Qty: 0 0RF
nicotine 14 mg/24 hr Patch 24 Hour
14 mg transdermal DAILY Qty: 0 0RF
polyethylene glycol 3350 17 gram Powder In Packet
17 g PO DAILY Qty: 0 0RF
gabapentin 400 mg capsule
400 mg PO BID Qty: 60 0RF
Briviact 100 mg tablet
150 mg PO Q12H Qty: 90 0RF
olanzapine 15 mg tablet
15 mg PO Q12H Qty: 60 0RF
oxcarbazepine 600 mg tablet
600 mg PO BID Qty: 60 0RF
lacosamide 200 mg tablet
200 mg PO BID Qty: 60 0RF
Continued
clonazepam 1 mg Tablet
1 mg PO BID 15 Days Qty: 30 0RF
Discontinued
Briviact 100 mg tablet
150 mg PO BID@0800,2000
gabapentin 400 mg Capsule
400 mg PO BID
topiramate 50 mg Tablet
100 mg PO BID
Discharge Orders:
Discharge Patient (As Directed); Ordered 12/18/24
Ordered By: Kristy Serna
Discharge Date and Time
Discharge Date/Time: 12/18/24 16:00
Print Language: PARAGUAYAN
--- NOTE | 2024-12-18 14:25 | W.PN.UPDATE ---
Update Note
Progress Note Update
Pt seen this morning for [address], recommending outpatient treatment. Pt agreed and was committed to up to 90 days of Outpatient Treatment at [facility].
Pt appears stable, unchanged in mental status/behavior for the past week. Pt is taking all prescribed medications, including Zyprexa 15 mg BID, with no apparent side effects.
Imp: Unspecified Bipolar d/o; now on 304 commitment for Outpatient treatment effective today; he appears to be at/near his baseline state; can leave today, pending discharge planning
Rec: continue Zyprexa 15 mg BID; Outpatient med mgt and therapy at [facility]
[2024-12-18 15:00] VITALS: BP 133/89
--- NOTE | 2024-12-18 15:15 | PTCARENOTE ---
1300 Pt mention since having his court hearing today and is agreeing to outpt therapy can he be discharge today. Explain to pt will notifiy Dr. Serna and awaiting Case Management to set up appointments at [facility] for outpt follow up. Pt became upset
and stated that if he cannot be discharge today, he will leave anyway. Emotional support given with some relief and pt agreed to wait in room. Pt requesting Klonopin to help with anxiety,
Klonopin 0.5 mg po given as ordered. [address] Serna via tiger text, pt is asking to be discharge or he will leave.
[address] Dr[address] Serna aware that aircraft maintenance manager is setting up Outpt therapy at [facility] and one to one observation cancelled by Dr. Malone (psychiatry).
Pt able to be discharge to home today, Explain to pt. Pt mention he does need a ride for discharge to his Mother's home. Pt agreed to a Lyft Ride.
Review discharge instructions, perscriptions and meds with pt. Pt prefer to ambulate to [facility]. I escorted pt to [facility] and pt was able to take a Lift ride to his mother's home for discharge.
--- NOTE | 2024-12-18 15:54 | CM ---
Call received from April Fleming at [facility], She will attempt to call patient on his cell phone ([phone]) per CM's note to set-up outpt Mental Health appts. Update to CM.
--- NOTE | 2024-12-18 16:11 | PTCARENOTE ---
12:00 Pt discuss wreed to go to outpt treatment, can he be discharge today.
Explain to pt will notifify DR. Serna and see if able to be diith me, since currently having his court hearing and agscharge today. Pt s
== END 2024-12-18 16:00 | disposition home or self-care (01) | DRG 885 ==
LOC: 4 WEST ACU 15:02
PROVIDERS: Internal Medicine; Nurse Practitioner Family; ADMITTING PHYSICIAN Hospitalist; ATTENDING PHYSICIAN Internal Medicine; EMERGENCY PHYSICIAN Emergency Medicine
DX: F31.9 Bipolar disorder, unspecified (principal); G40.419 Other generalized epilepsy and epileptic syndromes, intractable, without status epilepticus; R45.851 Suicidal ideations; E87.1 Hypo-osmolality and hyponatremia; F17.210 Nicotine dependence, cigarettes, uncomplicated; F10.11 Alcohol abuse, in remission; Z91.148 Patient's other noncompliance with medication regimen for other reason
CPT/HCPCS: 71045; 73130; 80048; 80053; 83735; 84100; 85025; 85027; 85610; 85730; 93005; 97163; 99285; C9254

== ENCOUNTER 2024-12-23 14:44 | Emergency (ER) | payer MEDICARE, OTHER, SELFPAY ==
[2024-12-23 14:59] VITALS: BP 141/85
--- NOTE | 2024-12-23 15:39 | ED.GENMED ---
History of Present Illness
General
Chief Complaint: Crisis Evaluation
Source: patient
Exam Limitations: none
Time Seen by Provider: 12/23/24 14:45
Nursing documentation reviewed up to this point in time: agreed with
History of Present Illness
History of Present Illness:
Patient with history of bipolar disorder and seizure disorder on Briviact, Klonopin, and gabapentin, presents ED for medical evaluation after 302 petition was filed by his, with concern that patient may be in danger of harming himself but not taking
prescribed medications. Upon arrival, patient is alert and awake, and is without any complaints. Patient states that he is not taking his psychiatric medications, due to side effects. However, patient does admit that he is taking his seizure
medications, as prescribed. Denies suicidal or homicidal ideation. Patient otherwise has no other complaints.
Past History
Past History
ED Past Medical History: Seizures and Other (Seizure disorder with frequent breakthrough seizures, polysubstance drug use)
ED Past Surgical History: Other (Brain stimulator for seizure disorder)
Social History
Tobacco: Smoker
Alcohol: Former
Drug: Former user and Marijuana
Personal: Single
Living: with family
Employment: Not employed
Family History
Family History: Other (Noncontributory)
Review of Systems
Review of Systems
Allergies reviewed?: Yes
All Other Systems: ROS reviewed and negative except as documented in HPI and ROS
Constitutional: Reports no symptoms
Respiratory: Reports no symptoms
Cardiac: Reports no symptoms
ABD/GI: Reports no symptoms
Musculoskeletal: Reports no symptoms
Skin: Reports no symptoms
Neurological: Reports no symptoms
Phy Exam
Physical Exam
Physical Exam:
Physical Exam
General: no apparent distress, not acutely ill. afebrile.
Head: nc/at. eomi
Neck: supple. no meningeal signs.
Heart: s1/s2 regular rate and rhythm
Lungs: no acute respiratory distress. clear bilaterally
Abdomen: normal bowel sounds. not tender.
Neuro: alert and oriented x 3. no focal neurological deficits
Skin: no rash
Psychiatric: well kept. interactive and cooperative
Extremities: no edema. no calf tenderness.
Course
Orders/Labs/Results
Orders:
Orders
12/23/24 15:05
Crisis Consult Urgent
Reason for Consult: bipolar disorder
12/23/24 15:10
PSYCHIATRY CONSULT Urgent
Consulting Provider: Erma Godoy
Was physician already notified: Yes
Reason for consult: bipolar disorder
12/23/24 16:19
Lorazepam [Ativan] 2 mg PO Q6HPRN PRN
Olanzapine [Zyprexa] 5 mg IM Q8HPRN PRN
12/23/24 20:00
Clonazepam [Klonopin] 1 mg PO BID
Gabapentin [Neurontin] 400 mg PO BID
Lacosamide [Vimpat] 200 mg PO BID
Oxcarbazepine [Trileptal] 600 mg PO BID
12/23/24 20:45
Brivaracetam [Briviact] 150 mg PO BID
12/23/24 22:00
Melatonin 5 mg PO HS
Olanzapine [Zyprexa] 10 mg PO HS
12/24/24 08:57
Olanzapine [Zyprexa] 5 mg IM NOW STA
12/24/24 08:59
Lorazepam [Ativan] 2 mg IM NOW STA
Sterile Water [Sterile Water For Injection] 10 ml .ROUTE .STK-MED ONE
12/24/24 09:10
1:1 Observation - Suicide/ Violent Behavior As Directed
Restraints - Violent As Directed
Restraint Type-: Locked-4 point/4 rails
Apply From (date): 12/24/24
Apply from (time): 09:10
Remove (date): 12/24/24
Remove (time): 13:10
12/24/24 13:10
Restraints - Violent As Directed
Restraint Type-: Locked-4 point/4 rails
Apply From (date): 12/24/24
Apply from (time): 13:10
Remove (date): 12/24/24
Remove (time): 17:09
12/24/24 13:46
PSYCHIATRY CONSULT Urgent
Consulting Provider: Bridger Salmon
Was physician already notified: Yes
12/24/24 23:00
ED Special Safety Observation ONCE
Observation level: One to Two
12/25/24 09:00
Lorazepam [Ativan] 2 mg IM NOW STA
Vital Signs
Initial and Last Documented VS:
Initial Vital Signs
Temp Pulse Resp BP Pulse Ox
98.3 F 115 20 141/85 98
12/23/24 14:59 12/23/24 14:59 12/23/24 14:59 12/23/24 14:59 12/23/24 14:59
Last Documented Vital Signs
Temp Pulse Resp BP Pulse Ox
98.3 F 78 18 113/78 98
12/23/24 14:59 12/24/24 23:12 12/24/24 23:12 12/24/24 23:12 12/24/24 23:12
MDM/Problems Addressed
MDM/Problems Addressed:
302 petition upheld by delegate. Awaiting evaluation by Dr. Godoy, psychiatry.
evaluated patient at bedside - upholding 302 petition. Will start his home meds in ED. Pt otherwise is medically cleared, especially with recent blood work and discharged from the hospital 2 days ago
Pt will be transferred to in-patient psychiatric facility for further evauation and treatment.
*Pulse Oximetry
SaO2: 98
Oxygen Mode of Delivery: Room air
Patient hypoxic: no
*Critical Care Note
Total Time (30-74mins, 75-104mins- exclusive of procedures): Not Applicable
ED Attending Note
-
Portions of this chart may have been created with voice recognition software.� Occasional wrong word or��sound alike� substitutions may have occurred due to the inherent limitations of voice recognition software.
Discharge Plan
Departure
Patient Disposition: Psych Facility
Date of Disposition: 12/23/24
Time of Disposition: 16:41
Patient Status:: 302
Discharge Problem:
Bipolar disorder, Seizure disorder
Prescriptions:
No Action
clonazepam 0.5 mg Tablet
0.5 mg PO Q6HPRN PRN (Reason: Agitation) Qty: 0 0RF
magnesium oxide 500 mg magnesium Tablet
500 mg PO DAILY Qty: 0 0RF
melatonin 5 mg Tablet
10 mg PO HS Qty: 0 0RF
nicotine 14 mg/24 hr Patch 24 Hour
14 mg transdermal DAILY Qty: 0 0RF
polyethylene glycol 3350 17 gram Powder In Packet
17 g PO DAILY Qty: 0 0RF
clonazepam 1 mg Tablet
1 mg PO BID 15 Days Qty: 30 0RF
gabapentin 400 mg capsule
400 mg PO BID Qty: 60 0RF
Briviact 100 mg tablet
150 mg PO Q12H Qty: 90 0RF
olanzapine 15 mg tablet
15 mg PO Q12H Qty: 60 0RF
oxcarbazepine 600 mg tablet
600 mg PO BID Qty: 60 0RF
lacosamide 200 mg tablet
200 mg PO BID Qty: 60 0RF
Referrals:
UNKNOWN - PT DOES,NOT KNOW [Unknown Provider]
Interventions
Interventions:
*Risk Screen - Suicide Last Done: 12/23/24 16:00
*General Assessment Last Done: 12/23/24 16:00
*Neglect/Abuse Screening Last Done: 12/23/24 16:00
*ED- Fall Risk Assessment Last Done: 12/23/24 16:00
*ED COVID-19 Vaccine History Last Done: 12/23/24 16:00
ED-Psychological Assessment Last Done: 12/23/24 15:45
Discharge Date and Time
Print Language: TURKISH
--- NOTE | 2024-12-23 16:04 | CS.PSYCHR ---
Consult Summary - Psychiatry
-
Patient seen by me on 12/23 2024 from 3:52pm-4:20pm.
Chart reviewed. 49 yo male presents on a 302 by his mom for manic and threatening/aggressive behaviors. Per 302, patient dumped all his medications in the trash. Patient denies allegations and gives conflicting information regarding his medication
compliance since recent discharge from [facility]. He presents agitated, pressured and labile. I read him the 302 and attempted to explain the petition process which increased his agitation. He insists he can sign himself out.
MSE- good eye contact. restless, loud. irritable mood. labile affect. denies SI/HI/AVH. poor insight and judgement
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
D&A- has alcohol use history but denies recent use; uses marijuana from dispensary
past psych- ODD in childhood. previous diagnosis of bipolar disorder. recent 303 while in [facility] with subsequent commitment to outpatient treatment. referral for PHP at [facility] made on 12/18/2024. has BCM at [facility]; discharged from [place]
hospital on Zyprexa 15mg BID
Family history- father with anger issues
Social- Lives with mom.
A/P- 49 yo male with unspecified bipolar disorder. will uphold 302 and recommend inpatient psychiatric hospitalization for safety stabilization and medication management. Will order PRN ativan for anxiety and restart zyprexa at 10mg HS. Will add PRN
zyprexa IM for PO refusal during episodes of agitation and melatonin 5mg HS. Psychiatry will follow while admitted.
[2024-12-23 16:58] VITALS: BMI 21.2
[2024-12-23] MEDS: NEURONTIN 400 MG PO (21:21)
[2024-12-23] MEDS: VIMPAT 200 MG PO (21:22)
[2024-12-23] MEDS: KLONOPIN 1 MG PO (21:22)
[2024-12-23] MEDS: MELATONIN 5 MG PO (21:22)
[2024-12-23] MEDS: BRIVIACT 150 MG PO (21:25)
[2024-12-24] MEDS: BRIVIACT 150 MG PO ×2 (08:44→20:11)
[2024-12-24] MEDS: NEURONTIN 400 MG PO ×2 (08:44→20:11)
[2024-12-24] MEDS: KLONOPIN 1 MG PO ×2 (08:44→20:11)
--- NOTE | 2024-12-24 09:00 | ED.CRISIS ---
ED Crisis Note
ED Crisis Note
Subjective:
Patient under 302, now behaving violently and sat in the middle floor defecated in his pounding his hands against the window and yelling at security.
Objective:
Awake, aggressive pounding hands against windows. Naked. Gown on floor cover in feces. Attempting to fight security.
Assessment/Plan:
Continue to uphold 302. Placed in restraints. Police called to assist in restraints. Will give IM zyprexa, ativan.
[2024-12-24] MEDS: VIMPAT PO ×2 (09:23→20:11)
[2024-12-24] MEDS: ATIVAN 2 MG IM (09:25)
[2024-12-24] MEDS: ZYPREXA 5 MG IM (09:25)
--- NOTE | 2024-12-24 09:27 | EDRN ---
Pt becoming increasingly more agitated, pt defecated on the floor twice, states 'I didn't mean to do that'. Pt became physically threatening, hitting his fist against the window of the room and spitting. For safety reasons police were called. Pt
restrained with 4 point restraints and medicated as ordered.
[2024-12-24 09:42] VITALS: BP 119/78
--- NOTE | 2024-12-24 14:13 | W.PN.UPDATE ---
Update Note
Progress Note Update
Pt seen, in 4-point restraints after episode of agitation, naked on the floor with feces. Reviewed 302 allegations- that pt threw away medications and was threatening to his mother, demanding she take him for cigarettes and to the [facility] dispensary.
Pt denies problems/behaviors, shows impaired insight, asking to leave, speech/thought pressured/tangential. Pt states he does not want to take Zyprexa, due to feeling dizzy. Zyprexa dosage upon discharge from [facility] 12/18 was 15 mg BID. No EPS
evident.
Imp: Unspecified Bipolar d/o; now on 302 for alleged threatening behavior towards his mother, not taking medications; pt still under 304 commitment for Outpatient treatment
Rec: continue trying Zyprexa at lower dose with IM doses as needed
continue assessment/psych placement effort on 302. Will follow
[2024-12-24] MEDS: ATIVAN 2 MG PO (16:34)
[2024-12-24 16:38] VITALS: BP 117/63
--- NOTE | 2024-12-24 20:19 | EDRN ---
Addendum entered by Jodi Mosher RN 12/24/24 21:38:
per pt 'those meds make me too dizzy and out of it, thats why I dont take them'.
Original Note:
pt refused some meds (see MAR). this RN educated pt on the importance of the meds and Dr. Phoenix notes regarding pts meds. pt still refused. pt remains out of restraints. using urinal intermittently. 1:1 maintained by hospital security. pt calm and
cooperative with this rn
[2024-12-24] MEDS: MELATONIN PO (21:37)
--- NOTE | 2024-12-24 21:37 | EDRN ---
pt again refused pm meds. explained dosing changes to zyprexa as well as use of melatonin. pt refused both.
[2024-12-24 23:12] VITALS: BP 113/78
[2024-12-25] MEDS: ATIVAN 2 MG IM (09:06)
[2024-12-25] MEDS: VIMPAT PO ×2 (09:13→20:05)
[2024-12-25] MEDS: NEURONTIN 400 MG PO ×2 (09:17→20:00)
[2024-12-25] MEDS: BRIVIACT 150 MG PO ×2 (09:18→20:00)
[2024-12-25] MEDS: KLONOPIN 1 MG PO ×2 (09:18→20:00)
--- NOTE | 2024-12-25 09:21 | EDRN ---
Patient with increased agitation. Patient banging on the door. Patient screaming 'Give me a phone. I want to call my fucking mother now. You can't stop me from leaving here. I want to go to my apartment in [place] then go to my dad's.' Explained
to patient that he is a 302 and can not simply walk out and go to his apartment and that his mother has filed a PFA against him and can not speak to her. Patient stated 'I don't give a fuck. Let me call her now and I don't care about a fucking PFA.
I would love to go to retirement.' Patient refusing to go into his room. Increased security at bedside. at bedside.
Patient medicated with Ativan 2mg IM. Patient agreed to taking his Neurontin 400mg,Klonopin 1 mg and Brivact 150 mg PO.
--- NOTE | 2024-12-25 13:49 | W.PN.UPDATE ---
Update Note
Progress Note Update
Pt seen, has been naked today, urinating in room earlier, now using urine jug in his room. Pt making threatening statements toward his mother, in an impulsive manner, states it's because he doesn't like her. Pt continues to deny problems,
insisting on leaving, showing impaired insight, speech/thought pressured/tangential. Pt refusing HS Zyprexa at reduced dose. He was given Ativan 2 mg IM this morning for agitation.
Imp: Unspecified Bipolar d/o; now on 302 for alleged threatening behavior towards his mother, not taking medications; pt still under 304 commitment for Outpatient treatment
Rec: continue current management, try offering Saphris as alternative to Zyprexa
continue assessment/psych placement effort on 302. Will follow
[2024-12-25 14:08] VITALS: BP 124/82
--- NOTE | 2024-12-25 20:15 | EDRN ---
Pt agreeable to take some medications, continues to refuse Vimpat and Trileptal. Attempted to administer Saphris, pt refused. Informed pt that he would be leaving shortly, pt requesting to speak to his mother prior to leaving. This RN and security
told pt that we were unable to. Pt able to be redirected. Pt cooperative with care, in paper scrubs. Provided crackers and water. Pt talking with security - at bedside for two to one observation. Awaiting transport.
== END 2024-12-25 22:34 ==
LOC: EMR 14:44
PROVIDERS: CONSULT PHYSICIAN Psychiatry & Neurology Psychiatry; CONSULT PHYSICIAN Student in an Organized Health Care Education/Training Program; EMERGENCY PHYSICIAN Emergency Medicine; FAMILY PHYSICIAN Family Medicine
DX: F31.9 Bipolar disorder, unspecified (principal); G40.909 Epilepsy, unspecified, not intractable, without status epilepticus; F17.200 Nicotine dependence, unspecified, uncomplicated; Z79.899 Other long term (current) drug therapy; Z91.148 Patient's other noncompliance with medication regimen for other reason
CPT/HCPCS: 99282; 96372; J2358